=== PATIENT | female | born 1940 ===

== ENCOUNTER 2018-05-06 02:28 | Emergency (ER) | payer MEDICARE ==
[2018-05-06] MEDS ORDERED: Nitroglycerin TAB 0.4 MG* 0.4 MG TAB SL PRN (02:32)
[2018-05-06] MEDS ORDERED: Morphine VIAL* 4 MG/ML VIAL (1 ml vial) IV ONE (02:33)
[2018-05-06] MEDS ORDERED: Metoprolol Tartrate TAB* 25 MG PO ONE (02:36)
--- NOTE | 2018-05-06 02:45 | ED ---
HPI Chest Pain - HPI Summary HPI Summary: The patient is a 77 y/o F presenting to [facility] brought in by ambulance with a chief complaint of sharp CP in the anterior chest with associated tingling with a sudden onset around 0145. She woke up from a sleep when the pain started. In the ambulance, she was given 4 baby aspirin and 1 dose of NTG, which relieved her pain, although she is still having some discomfort now rated 5/10 in severity. She denies nausea. She has had previous angina, but this pain is different. During that time, she had a stress test. Hypercholesterolemia, no HTN. Former smoker. - History of Current Complaint Hx Obtained From: Patient Onset/Duration: Started Minutes Ago, Still Present Time of Onset: 01:45 Timing: Lasting Minutes Initial Severity: Severe Current Severity: Mild Pain Intensity: 5 Pain Scale Used: 0-10 Numeric Chest Pain Location: Left Anterior, Right Anterior Chest Pain Radiates: No Character: Sharp/Stabbing Aggravating Factor(s): Nothing Alleviating Factor(s): NTG 123 - one, Other: - 4 baby aspirin Associated Signs and Symptoms: Positive: Tingling - in chest. Negative: Nausea - Allergy/Home Medications Allergies/Adverse Reactions: Allergies Allergy/AdvReac Type Severity Reaction Status Date / Time Iodinated Contrast- Oral and Allergy Shakes Verified 05/06/18 02:32 IV Dye Home Medications: Home Medications Aspirin 81 mg PO DAILY 05/06/18 [History Confirmed 05/06/18] Metoprolol Succinate XL TAB* 25 mg PO DAILY 05/06/18 [History Confirmed 05/06/18 ] PMH/Surg Hx/FS Hx/Imm Hx Endocrine/Hematology History: Denies: Hx Diabetes Cardiovascular History: Reports: Hx Hypercholesterolemia Denies: Hx Hypertension Opthamlomology History: Denies: Hx Legally Blind EENT History: Denies: Hx Deafness - Surgical History Surgery Procedure, Year, and Place: none Infectious Disease History: No Infectious Disease History: Denies: Traveled Outside the [place] in Last 30 Days - Family History Known Family History: Negative: Diabetes Review of Systems Positive: Chest Pain - sharp pain across anterior chest with tingling Negative: Nausea All Other Systems Reviewed And Are Negative: Yes Physical Exam - Summary Physical Exam Summary: Appearance: Well-appearing, Well-nourished, lying in bed comfortably Skin: Warm, dry, no obvious rash Eyes: sclera anicteric, no conjunctival pallor ENT: mucous membranes moist, pharynx appears normal Neck: Supple, nontender Respiratory: Clear to auscultation, no signs of respiratory distress Cardiovascular: Normal S1, S2. No murmurs. Normal distal pulses in tibial and radial bilaterally. Abdomen: Soft, nontender, normal active bowel sounds present Musculoskeletal: Normal, Strength/ROM Intact Neurological: A&Ox3, awake and alert, mentation is normal, speech is fluent and appropriate Psychiatric: affect is normal, does not appear anxious or depressed Triage Information Reviewed: Yes Vital Signs On Initial Exam: Initial Vitals Temp Pulse Resp BP Pulse Ox 96.3 F 109 18 136/80 94 05/06/18 02:29 05/06/18 02:29 05/06/18 02:29 05/06/18 02:29 05/06/18 02:29 Vital Signs Reviewed: Yes Diagnostics - Vital Signs Vital Signs Temp Pulse Resp BP Pulse Ox 05/06/18 02:29 96.3 F 109 18 136/80 94 - Laboratory Result Diagrams: 05/06/18 02:43 05/06/18 02:43 Lab Statement: Any lab studies that have been ordered have been reviewed, and results considered in the medical decision making process. - Radiology CXR Radiology Interpretation Completed By: Radiologist Summary of Radiographic Findings: No acute disease. ED physician has reviewed this report. - EKG 02:31 Cardiac Rate: Tachycardia EKG Rhythm: Sinus Tachycardia Summary of EKG Findings: Sinus tachycardia at 110BPM, P waves, QRS complex, and T waves are within normal limits, T waves and intervals are normal, no ischemic changes. Re-Evaluation - Re-Evaluation First Eval Re-Evaluation Time: 06:30 Change: Improved Comment: She states she has no more pain. She will be discharged home. Chest Pain Course/Dx - Course Course Of Treatment: The patient is a 77 y/o F brought in by ambulance with a chief complaint of sharp CP in the anterior chest with associated tingling with a sudden onset around 0145 that caused her to wake up from a deep sleep. In the ambulance, she was given 4 baby aspirin and 1 dose of NTG, which relieved her pain, although she is still having some discomfort now. She has had previous angina, but this pain is different. During that time, she had a stress test. Hypercholesterolemia. Former smoker. Physical exam is normal. In the ED course, the patient was given Ns, Lopressor, NTG, and Morphine. EKG reveals tachycardia. CXR is negative. She is diagnosed with chest pain. On reevaluation , the patient states she has no more pain. She looks generally well and her vital signs of been stable. She has had no arrhythmias on the monitor. Her troponin assays are negative 2. At this point I believe she is stable for discharge and does not require hospitalization. I went over with her that follow-up is important with her primary care doctor is they will probably when he get a stress test of some type. In the meantime she was cautioned to return if she has recurrent chest pain or other worrisome symptoms. - Diagnoses Provider Diagnoses: Chest pain Discharge - Sign-Out/Discharge Documenting (check all that apply): Patient Departure - Patient will be discharged home. - Discharge Plan Condition: Good Disposition: HOME Patient Education Materials: Chest Pain (ED) Referrals: Bandar France MD [Primary Care Provider] - 2 Days Additional Instructions: Although we did not find any evidence of an acute heart problem tonight, you should followup with your own doctor as you may need to have a stress test done. - Billing Disposition and Condition Condition: GOOD Disposition: Home - Attestation Statements Document Initiated by Uma: Yes Documenting Scribe: Mariama Villar Provider For Whom Uma is Documenting (Include Credential): Dr. Azeem Epperson MD Scribe Attestation: Mariama James scribed for Dr. Azeem Epperson MD on 05/06/18 at 0659. Scribe Documentation Reviewed: Yes Provider Attestation: The documentation as recorded by the Mariama garcia accurately reflects the service I personally performed and the decisions made by me, Dr. Azeem Epperson MD Status of Scribwendi Document: Viewed
[2018-05-06 02:51] LABS: ABS Basophils 0.1 10^3/ul (0-0.2); ABS Eosinophils 0.2 10^3/ul (0-0.6); ABS Lymphocytes 1.8 10^3/ul (1.0-4.8); ABS Monocytes 0.6 10^3/ul (0-0.8); ABS Neutrophils 4.8 10^3/ul (1.5-7.7); ABS Nucleated RBC 0 10^3/ul; Eosinophil % 2.6 %; Hematocrit 38 % (35-47); Hemoglobin 13.1 g/dl (12.0-16.0); Mean Corpuscular HGB Conc 34 g/dl (31-36); Mean Corpuscular Hemoglobin 31 pg (27-31); Mean Corpuscular Volume 90 fL (80-97); Mean Platelet Volume 7.2 fL (7.4-10.4); Nucleated Red Blood Cells % 0.1; Platelet Count 287 10^3/ul (150-450); Red Blood Count 4.24 10^6/ul (4.00-5.40); Red Cell Distribution Width 13 % (10.5-15); White Blood Count 7.6 10^3/ul (3.5-10.8)
[2018-05-06] MEDS ORDERED: NS 0.9% 1000 ML* 1,000 ML IV ONE (03:01)
[2018-05-06 03:09] LABS: EGFR Non-African American 71.6 (>60)
[2018-05-06 07:01] VITALS: BP 107/57
== END 2018-05-06 06:59 | disposition home or self-care (01) ==
LOC: ED 02:28
DX: R07.89 Other chest pain (principal); R00.0 Tachycardia, unspecified; Z79.82 Long term (current) use of aspirin; Z91.041 Radiographic dye allergy status
CPT/HCPCS: 36415; 71045; 80053; 84484; 85025; 85379; 93005; 96374; 99284; A9270-GY; J2270

== ENCOUNTER 2019-05-09 16:25 | Inpatient (IN) | payer MEDICARE, MEDICAID ==
--- OUTSIDE RECORDS SUMMARY | 2019-05-09 16:52 | XMS REPORT | Summary of Care ---
:1940 Author Organization [facility] Address [address] [address] Care Team Providers Name Role Phone Mickey Manzano Primary Care Provider Mario Hernandez MD Unavailable Unavailable Shanika Pineda Enterprise Software Developer Unavailable Reason for Visit Reason Comments New Patient Right shoulder pain x 2 months with no known injury. Refer to Department Only (Routine) Status Reason Specialty Diagnoses / Referred By Contact Referred To Contact Procedures Closed Orthopedics Diagnoses Pain in joint of right shoulder Pain of left hip joint Polly Talavera MD [address] [place] [address] Encounter Details Date Type Department Care Team Description 05/06/2019 Office Visit [facility] Peri Morgan, Primary osteoarthritis of right shoulder (Primary Dx); - [place] [facility] Pain in joint of right shoulder; [address] [facility] Pain of left hip [place] [address] [address] [place] [address] [phone] Allergies Active Allergy Reactions Severity Noted Date Comments Ct Dye Dermatologic Reaction 11/16/2009 Penicillins Other 06/09/2010 documented as of this encounter (statuses as of 05/06/2019) Medications Medication Sig Dispensed Refills Start Date End Date Status Multiple Take 1 Tab by 0 Active Vitamins-Minerals (ONE mouth DAILY. DAILY WOMENS 50+) Oral Tab Zgmwdoz-Feucwjemd-Wxnl Take 1 Tab by 60 Tab 0 02/10/2015 Active min D (CALCIUM 500) mouth TWICE DAILY. 500-250-200 MG-MG-UNIT Oral Tab Naproxen Take by mouth 0 Active Sod-Diphenhydramine NEEDED. (ALEVE PM PO) Nystatin 130962 0.0001 g by Apply 60 g 4 05/09/2018 Active UNIT/GM Apply externally route externally Powder TWICE DAILY. diclofenac (VOLTAREN) 2 g by Topical 100 g 4 06/28/2018 Active 1 % Transdermal Gel route THREE TIMES DAILY NEEDED (thumb pain). metoprolol succinate Take 1 Tab by 90 Tab 3 09/24/2018 Active (TOPROL XL) 25 MG Oral mouth DAILY. TABLET SR 24 HRIndications: Essential hypertension triamcinolone Apply to scalp 80 g 5 11/30/2018 Active (KENALOG) 0.1 % Apply twice daily externally Ointment escitalopram (LEXAPRO) Take 1 Tab by 30 Tab 5 01/09/2019 Active 10 MG Oral Tab mouth DAILY. ropinirole (REQUIP) 2 Take 1 Tab by 30 Tab 1 04/24/2019 Active MG Oral Tab mouth EVERY BEDTIME. Hospital, Clinic, or Other Ordered Dose Route Frequency Start Date End Date Status Facility Administered Medication methylPREDNISolone acetate 80 mg IM NOW 05/06/2019 05/06/2019 Ended (DEPO-MEDROL) injection 80 MG/MLIndications: Primary osteoarthritis of right shoulder documented as of this encounter (statuses as of 05/06/2019) Active Problems Problem Noted Date Restless leg syndrome 06/28/2018 Hearing loss of right ear 02/10/2015 Chronic insomnia 02/10/2015 Osteoporosis 11/02/2012 Overview: FRAX 4.9/17% based on DEXA 07/02 H/O: hysterectomy 07/09/2010 Overview: Age 21 Essential hypertension SVT (supraventricular tachycardia) Overview: briefly on metoprol by prior provider for "angina" symptoms Mixed hyperlipidemia Overview: LDL 161, HDL 88 documented as of this encounter (statuses as of 05/06/2019) Resolved Problems Problem Noted Date Resolved Date Shoulder pain, right 04/02/2014 02/10/2015 Anxiety 02/10/2015 documented as of this encounter (statuses as of 05/06/2019) Immunizations Name Administration Dates Next Due Influenza (IM) Preservative Free 03/14/2013, 03/21/2012, 02/02/2011, 02/12/2010 Influenza Vaccine 65 Yrs + 03/12/2019 Influenza Vaccine High Dose 03/19/2018, 03/17/2017, 03/16/2016, 02/10/2015, 03/27/2014 PNEUMOCOCCAL POLYSACCHARIDE VACCINE 02/19/2010 Pneumococcal Conjugate(13 Valent) 03/16/2016 TDAP Vaccine 11/24/2010 ZOSTER (ZOSTAVAX) VACCINE 02/10/2015 documented as of this encounter Social History Tobacco Use Types Packs/Day Years Used Date Former Smoker Cigarettes 0.25 30 Quit: 05/22/1996 Smokeless Tobacco: Never Used Alcohol Use Drinks/Week oz/Week Comments Yes 3-4 Cans of beer 3.0 - 4.0 0 Standard drinks or equivalent Sex Assigned at Date Recorded Not on file Job Start Date Occupation Industry Not on file Not on file Not on file Travel History Travel Start Travel End No recent travel history available. documented as of this encounter Last Filed Vital Signs Vital Sign Reading Time Taken Comments Blood Pressure 129/68 05/06/2019 11:14 AM EST Pulse 84 05/06/2019 11:14 AM EST Temperature - - Respiratory Rate - - Oxygen Saturation - - Inhaled Oxygen Concentration - - Weight 70.8 kg (156 lb) 05/06/2019 11:14 AM EST Height - - Body Mass Index 28.08 04/24/2019 4:26 PM EST documented in this encounter Progress Notes Peri Morgan, BILLIE-C - 05/06/2019 11:15 AM EST PATIENT: Estelle Wolff : 1940 DATE OF SERVICE: 05/06/2019 REFERRING PRACTITIONER: Polly Talavera PRIMARY CARE PROVIDER: Mickey Manzano CHIEF COMPLAINT: Chief Complaint Patient presents with New Patient Right shoulder pain x 2 months with no known injury. HISTORY OF PRESENT ILLNESS: Estelle Wolff is a 78-y.o. female who presents for a new visit. The patient presents with right shoulder pain. Onset of the symptoms was several months ago. Current symptoms include: pain: intensity 8/10. Inciting event: no known event. Associated symptoms: pain radiating to arm/hand. Aggravating symptoms: lifting heavy objects, range of motion and sleeping. . Patient's symptoms are: gradually worsening. Patient has had prior upper extremity problems. Had an injection over 1 year ago she believes. Previous visits for this problem: yes, last seen by the patient's primary care provider. Evaluation to date: plain x-rays : abnormal Treatment to date: rest, ice: ineffective, mjam-mdo-hultprj analgesics: ineffective. Past Medical History: Diagnosis Date Advanced directives, counseling/discussion requests DNR/DNI Anxiety Arthritis Bladder polyp Dr. Fuentes Dyslipidemia LDL 161, HDL 88; started simva Hearing problem HTN (hypertension) normotensive without medications Osteoporosis FRAX 4.9/17% based on DEXA 07/02 Otitis media SVT (supraventricular tachycardia) (HCC) previously on metoprol by prior provider for "angina" symptoms, off metoprolol 2010-03 due to borderline hypotension, restarted November 2010 Past Surgical History: Procedure Laterality Date APPENDECTOMY CHOLECYSTECTOMY HYSTERECTOMY, ABDOMINAL tumurs GA REMOVE TONSILS/ADENOIDS,12+ Y/O GA TYMPANOPLASTY TONSILLECTOMY Family History Problem Relation Age of Onset Alcohol/Drug Father ETOH Breast Cancer Sister Cancer Sister brain tumor Stroke Sister Cancer Brother stomach ca No Known Problems Brother Alcohol/Drug Sister drug OD No Known Problems Sister Current Outpatient Medications Medication Sig Cndqbrp-Dvwjuibcw-Emvvbzp D (CALCIUM 500) 500-250-200 MG-MG-UNIT Oral Tab Take 1 Tab by mouthTWICE DAILY. diclofenac (VOLTAREN) 1 % Transdermal Gel 2 g by Topical route THREE TIMES DAILY NEEDED (thumb pain). escitalopram (LEXAPRO) 10 MG Oral Tab Take 1 Tab by mouth DAILY. metoprolol succinate (TOPROL XL) 25 MG Oral TABLET SR 24 HR Take 1 Tab by mouth DAILY. Multiple Vitamins-Minerals (ONE DAILY WOMENS 50+) Oral Tab Take 1 Tab by mouth DAILY. Naproxen Sod-Diphenhydramine (ALEVE PM PO) Take by mouth NEEDED. Nystatin 278696 UNIT/GM Apply externally Powder 0.0001 g by Apply externally route TWICE DAILY. ropinirole (REQUIP) 2 MG Oral Tab Take 1 Tab by mouth EVERY BEDTIME. triamcinolone (KENALOG) 0.1 % Apply externally Ointment Apply to scalp twice daily No current facility-administered medications for this visit. Allergies Allergen Reactions Iv Contrast [Ct Dye] Dermatologic Reaction Penicillins Other Social History Socioeconomic History Marital status: Spouse name: Not on file Number of children: Not on file Years of education: Not on file Highest education level: Not on file Occupational History Not on file Social Needs Financial resource strain: Not on file Food insecurity Worry: Not on file Inability: Not on file Transportation needs Medical: Not on file Non-medical: Not on file Tobacco Use Smoking status: Former Smoker Packs/day: 0.25 Years: 30.00 Pack years: 7.50 Types: Cigarettes Last attempt to quit: 05/22/1996 Years since quittin.9 Smokeless tobacco: Never Used Substance and Sexual Activity Alcohol use: Yes Alcohol/week: 3.0 - 4.0 standard drinks Types: 3 - 4 Cans of beer per week Drug use: No Sexual activity: Not Currently Lifestyle Physical activity Days per week: Not on file Minutes per session: Not on file Stress: Not on file Relationships Social connections Talks on phone: Not on file Gets together: Not on file Attends zoroastrian service: Not on file Active member of club or organization: Not on file Attends meetings of clubs or organizations: Not on file Relationship status: Not on file Intimate partner violence Fear of current or ex partner: Not on file Emotionally abused: Not on file Physically abused: Not on file Forced sexual activity: Not on file Other Topics Concern Back Care Not Asked Bike Helmet Not Asked Blood Transfusions Not Asked Caffeine Concern Not Asked Exercise Yes Comment: 30 mins daily walking Hobby Hazards Not Asked International Travel Not Asked Service Not Asked Occupational Exposure Not Asked Seat Belt Not Asked Self-Exams Not Asked Sleep Concern No Special Diet No Stress Concern No Weight Concern Yes Comment: mild unintentional weight loss in 2010 Social History Narrative Lives alone in a house in [place], [place] since 2010 Has dog and cataract at home 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 Nephew next door. REVIEW OF SYSTEMS: Review of systems intake completed by clinical staff. I have reviewed and agree with their documentation. PHYSICAL EXAMINATION: VITALS: BP 129/68 | Pulse 84 | Wt 156 lb (70.8 kg) | BMI 28.08 kg/m Body mass index is 28.08 kg/m.. Handed: right General: pleasant, alert and oriented x 3, no apparent distress Patient was examined with the shoulder exposed. There is no asymmetry noted between between right and left shoulders. There is no evidence of skin blebs, discoloration, abrasions, or scars. No evidenceof anterior, posterior or lateral deltoid atrophy bilaterally. There is evidence of tenderness on palpation of the anterior inferior, or anterior lateral acromion. C-spine exam: The patient has full range of motion of the cervical spine. The patient has a Negative Spurlings sign.(neck extension and lateral rotation to symptomatic side accompanied by pain on axial loading of the c-spine) Range of motion: Right upper extremity forward elevation 140 Left upper extremity forward elevation 180 Right upper extremity abduction 140 Left upper extremity - abduction 180 Specific Tests: Right upper extremity Positive modified Jobes test (Shoulder abduction to 90 degrees, 30 degrees forward flexion with right thumb down compared to left upper extremity, to evaluate supraspinatus) with pain no significant weakness Left upper extremity Negative modified Jobes test ( Shoulder abduction to 90 degrees, 30 degrees forward flexion with left thumb down compared to right upper extremity, to evaluate supraspinatus) Negative weakness in external rotation against resistance, testing the infraspinatus and teres minor. bilaterally. Negative weakness in internal rotation against resistance , testing the subscapularis with respect to the bilaterally upper extremity. Negative lift off test, evaluating the lower portion of the subscapularis with respect to the bilaterally upper extremity. negative belly press Bilateral Nv intact to the rightRight upper extremity. Elbow and wrist motion are full and pain free of the Right upper extremity. Left shoulder exam is normal. Xray's reviewed show : IMPRESSION: ICD-9-CM ICD-10-CM 1. Pain in joint of right shoulder 719.41 M25.511 REFER TO ORTHOPEDICS 2. Pain of left hip joint 719.45 M25.552 REFER TO ORTHOPEDICS PLAN:The risks and benefits of my recommendations, as well as other treatment options along with their benefits, risks, and failure rates were discussed with the patient and son today. The patient wasadvised of the material risks and benefits of a intraarticular depomedrol injection and verbal informed consent was obtained. The skin was prepped with an betadine sponge and the right Shoulder posterior approach was injected with 80 mg of Depo-medrol in 2cc of 1 % plain lidocaine and 1cc of 0.5% marcaine. She tolerated the injection well with no associated complications. A band aid was applied to the injection site. Possible side effects were discussed as was the use of ice and over the counter Tylenol or ibuprofen for post injection discomfort. she was given the post injection sheet. All questions were answered. Follow up: Schedule follow-up here in 3 week(s) for the shoulder and a nc left hip. Has xray's in chart. Author: MADELEINE Hernandez 05/06/2019 11:18 documented in this encounter Plan of Treatment Date Type Specialty Care Team Description 05/27/2019 Office Visit Orthopedics Reinier Jarrell MD [address] [place] [address] [phone] Name Type Priority Associated Diagnoses Order Schedule INJECTION, JOINT Procedures Routine Primary osteoarthritis of Ordered: SHOUDLER HIP KNEE OR right shoulder BURSA Health Maintenance Due Date Last Done Comments MEDICARE ANNUAL WELLNESS 03/17/2018 03/17/2017, 03/16/2016, VISIT 03/16/2016, Additional history exists OSTEOPOROSIS SCREENING 01/20/2019 01/20/2009 FALL RISK ASSESSMENT 06/28/2019 06/28/2018, 06/28/2018 DEPRESSION SCREENING 02/07/2020 02/06/2019, 02/06/2019 ZOSTER IMMUNIZATION SERIES 04/24/2020 02/10/2015 Postponed from (2 of 3) 04/07/2015 (Vaccine not available) DTaP/Tdap/Td Vaccines (2 - 11/24/2020 11/24/2010 Tdap) PNEUMOCOCCAL 65+YRS Completed 03/16/2016, 02/19/2010 INFLUENZA VACCINE Completed 03/12/2019, 03/19/2018, 03/17/2017, Additional history exists HEPATITIS A IMMUNIZATION Aged Out No longer eligible SERIES based on patient's age to complete this topic HPV IMMUNIZATION SERIES Aged Out No longer eligible based on patient's age to complete this topic MENINGOCOCCAL VACCINE IMM Aged Out No longer eligible based on patient's age to complete this topic documented as of this encounter Goals Goal Patient Goal Associated Recent Patient-Stated? Author Type Problems Progress Blood Pressure Blood Essential 129/68 No [place], < 140/90 Pressure hypertension (05/06/2019 Mickey Monroe, 11:14 AM EST) Note: Hypertension Care Plan Based on the patient's clinical history and according to JNC 8 guidelines target blood pressure goal is less than 140/90. Based on the patient's last blood pressure of BP: 128/60 mmHg the patient is at at goal. As your provider, it is important that I advise you regarding: your current medications and help you with any challenges you may face taking your medications as directed (ex. instructions, cost, side effects, and interactions). Important lifestyle changes: exercise, weight reduction and dietary sodium reduction your clinical goals and how you can achieve success: weight reduction and exercise plan medication management: N/A diet only patient education/self-management tools provided: Current self-management tools adequate To successfully manage my Hypertension I will: monitor my blood pressure daily, understanding that my goal is less than 140/ 90 per my healthcare provider's recommendation. I will schedule an appointment with my provider if consistent abnormal readings greater than 160/100. take medications every day as prescribed by my healthcare provider and if unable to take them I will discuss with my provider. monitor for symptoms of chest pain, chest tightness/pressure, irregular heartbeat, persistent dizziness, radiating arm pain, and neck or jaw pain. If any of these symptoms are noticed I will seek medical attention immediately by calling 911 exercise/walk 30 minutes 6 day(s) per week. If I experience chest pain, chest tightness, or shortness of breath, I will seek medical attention immediately. follow a diet rich in fruits, vegetables, and low-fat dairy products with reduced content of saturated & total fat. I will reduce my sodium intake daily. An example is the DASH diet. To obtain more information please refer to the DASH Eating Plan listed in Educational Resources. record my blood pressure results. Doug is safe and secure way for you to do this in your medical record online. try to obtain an ideal body weight. My recent weight was Weight: 157 lb ( 71.215 kg). My weight loss goal for my next office visit is 155. limit alcohol consumption. For men two drinks per day and women one drink per day. if currently smoking, will discuss how to quit smoking with my healthcare provider and work towards quitting. Educational Resources: National Heart, Lung, & Blood Dewitt http://nhlbi.nih.gov/hbp/index.html The DASH Diet Eating Plan http://www.nhlbi.nih.gov/health/health-topics/ topics/dash/ Academy of Nutrition & DIetetics http://eatright.org National Smoking Cessation Site http://smokefree.gov Blood Pressure < 150/90 Blood Pressure 129/68 (05/06/2019 11:14 No Reinier Cárdenas MD AM EST) Note: This is an individualized treatment (blood pressure) goal for Estelle Wolff : Displayed above (on the left) is your goal for blood pressure control. Your most recent blood pressure is also shown above, on the right. You should try to achieve blood pressures that are lower than your goal listed above (on the left). Depression screen Depression 0 (02/06/2019 12:43 PM Mickey Benavides, (PHQ-9) total score < 5 EDT) Note: This is an individualized treatment (depression) goal for Estelle Wolff: Displayed above is your goal for a depression screening (PHQ-9) score that would indicate good control of your depression. Keep a regular sleep schedule Lifestyle Mickey Benavides MD Note: This is an individualized lifestyle goal for Estelle Wolff: Please maintain a regular sleep schedule. This may help with some symptoms of depression. Take all prescribed medications as directed Self-management Reinier Urbano MD Note: This is an individualized self-management goal for Estelle Wolff: Please take all prescribed medications as directed. 1. Do not skip doses. If you cannot afford your medications, talk with your doctor. 2. Use a pill reminder system such as a pill box if needed. Your pharmacist can help you with this. 3. Contact your Pharmacy 5 days before your medication runs out. If you cannot take your medications for any reasons, talk with your doctor. 4. Please bring all of your medication bottles and inhalers (or a list of all your medications/inhalers) with you to every visit. Potential barriers to meeting all of your care plan goals will continue to be addressed on an ongoing basis. documented as of this encounter Results Not on filedocumented in this encounter Visit Diagnoses Diagnosis Pain in joint of right shoulder Pain in joint, shoulder region Pain of left hip joint Primary osteoarthritis of right shoulder Primary localized osteoarthrosis, shoulder region documented in this encounter Administered Medications Medication Order MAR Action Action Date Dose Rate Site methylPREDNISolone acetate Given 05/06/2019 11:27 80 mg Shoulder - Right (DEPO-MEDROL) injection 80 AM EST MG/ML 80 mg, Intramuscular, NOW, 1 dose, 05/06/19 at 1130 documented in this encounter Insurance Payer Benefit Plan / Subscriber ID Effective Dates Phone Address Type Group [facility] MEDICARE EX[employer]LL[employer] xxxxxxxxxxxx Effective for [employer] ADVANTAGE MEDICARE BLUE all dates PPO ([id number]) Guarantor Name Account Type Relation to Date of Phone Billing Patient Address Estelle Wolff Personal/Family 1940 [phone] ([address]) [address] [phone] [place], [place] (Work) [id number] documented as of this encounter
--- OUTSIDE RECORDS SUMMARY | 2019-05-09 16:52 | XMS REPORT | Summary of Care ---
:1940 Author Organization [facility] Address [address] [address] Care Team Providers Name Role Phone Mickey Manzano Primary Care Provider Mario Hernandez MD Unavailable Unavailable Shanika Pineda Psychiatric Nurse Practitioner Unavailable Reason for Referral Refer to Department Only (Routine) Status Reason Specialty Diagnoses / Referred By Referred To Procedures Contact Contact Authorized Orthopedics Diagnoses Pain in joint of right shoulder Pain of left hip joint Polly Talavera MD [address] [place] [address] Refer to Department Only (Routine) Status Reason Specialty Diagnoses / Referred By Referred To Procedures Contact Contact Pending Review DERMATOLOGY Diagnoses Lesion of skin of scalp Polly Talavera MD [address] [place] [address] Reason for Visit Reason Comments Shoulder Pain right shoulder had cortosone shot in arm 1 year ago pain is coming back X1.5 months worse in the last 3 days pain scale of 10 Rash on the top of the head, painful to the touch -6months ago Leg Pain bilateral leg pain when resting X1 year geting worse has to triple flexeril Hip Pain left hip pain X1.5 weeks Encounter Details Date Type Department Care Team Description 04/24/2019 Office Visit Zuleyma Olsen Ilan, Pain in joint of right shoulder (Primary Dx); Traci Matias MD Pain of left hip joint; [address] Lesion of skin of scalp; [place] [address] [place] [address] RLS (restless legs syndrome) [phone] Allergies Active Allergy Reactions Severity Noted Date Comments Ct Dye Dermatologic Reaction 11/16/2009 Penicillins Other 06/09/2010 documented as of this encounter (statuses as of 04/24/2019) Medications Medication Sig Dispensed Refills Start Date End Date Status Multiple Take 1 Tab by 0 Active Vitamins-Minerals mouth DAILY. (ONE DAILY WOMENS 50+) Oral Tab Qwsukmr-Ckhmxvnzz-Fe Take 1 Tab by 60 Tab 0 02/10/2015 Active tamin D (CALCIUM mouth TWICE 500) 500-250-200 DAILY. MG-MG-UNIT Oral Tab Naproxen Take by mouth 0 Active Sod-Diphenhydramine NEEDED. (ALEVE PM PO) Nystatin 405863 0.0001 g by 60 g 4 05/09/2018 Active UNIT/GM Apply Apply externally Powder externally route TWICE DAILY. diclofenac 2 g by Topical 100 g 4 06/28/2018 Active (VOLTAREN) 1 % route THREE Transdermal Gel TIMES DAILY NEEDED (thumb pain). metoprolol succinate Take 1 Tab by 90 Tab 3 09/24/2018 Active (TOPROL XL) 25 MG mouth DAILY. Oral TABLET SR 24 HRIndications: Essential hypertension triamcinolone Apply to scalp 80 g 5 11/30/2018 Active (KENALOG) 0.1 % twice daily Apply externally Ointment escitalopram Take 1 Tab by 30 Tab 5 01/09/2019 Active (LEXAPRO) 10 MG Oral mouth DAILY. Tab ropinirole (REQUIP) Take 1 Tab by 30 Tab 1 04/24/2019 Active 2 MG Oral Tab mouth EVERY BEDTIME. cyclobenzaprine Take 1 Tab by 30 Tab 5 11/30/2018 Discontinued (FLEXERIL) 10 MG mouth EVERY 9 Oral Tab BEDTIME. ropinirole (REQUIP) Take 1.5 mg by 0 Discontinued 0.5 MG Oral Tab mouth EVERY 9 BEDTIME. documented as of this encounter (statuses as of 04/24/2019) Active Problems Problem Noted Date Restless leg syndrome 06/28/2018 Hearing loss of right ear 02/10/2015 Chronic insomnia 02/10/2015 Osteoporosis 11/02/2012 Overview: FRAX 4.9/17% based on DEXA 07/02 H/O: hysterectomy 07/09/2010 Overview: Age 21 Essential hypertension SVT (supraventricular tachycardia) Overview: briefly on metoprol by prior provider for "angina" symptoms Mixed hyperlipidemia Overview: LDL 161, HDL 88 documented as of this encounter (statuses as of 04/24/2019) Resolved Problems Problem Noted Date Resolved Date Shoulder pain, right 04/02/2014 02/10/2015 Anxiety 02/10/2015 documented as of this encounter (statuses as of 04/24/2019) Immunizations Name Administration Dates Next Due Influenza (IM) Preservative Free 03/14/2013, 03/21/2012, 02/02/2011, 02/12/2010 Influenza Vaccine 65 Yrs + 03/12/2019 Influenza Vaccine High Dose 03/19/2018, 03/17/2017, 03/16/2016, 02/10/2015, 03/27/2014 Kenalog (40 mg) 04/02/2014 PNEUMOCOCCAL POLYSACCHARIDE VACCINE 02/19/2010 Pneumococcal Conjugate(13 Valent) [...] Sign Reading Time Taken Comments Blood Pressure 140/90 04/24/2019 4:26 PM EST Pulse 73 04/24/2019 4:26 PM EST Temperature 37.4 04/24/2019 4:26 PM EST C (99.4 F) Respiratory Rate - - Oxygen Saturation 96% 04/24/2019 4:26 PM EST Inhaled Oxygen Concentration - - Weight 70.9 kg (156 lb 6.4 oz) 04/24/2019 4:26 PM EST Height 158.8 cm (5' 2.5") 04/24/2019 4:26 PM EST Body Mass Index 28.15 04/24/2019 4:26 PM EST documented in this encounter Patient Instructions Patient InstructionsPolly Talavera MD - 04/24/2019 4:20 PM EST1. Schedule appointment with dermatology and orthopedics 2. Schedule appointment for R shoulder and L hip X-ray 3. Increase Requip to 2 mg at the bed time ( 4 tablets of 0.5 mg or 1 tablet of 2 mg) documented in this encounter Progress Notes Polly Talavera MD - 04/24/2019 4:20 PM EST Patient: Estelle Wolff Date of Service: 04/24/2019 Subjective: Estelle Wolff is a 78-y.o. female who presents for Chief Complaint Patient presents with Shoulder Pain right shoulder had cortosone shot in arm 1 year ago pain is coming back X1.5 months worse in the last 3 days pain scale of 10 Rash on the top of the head, painful to the touch -6months ago Leg Pain bilateral leg pain when resting X1 year geting worse has to triple flexeril Hip Pain left hip pain X1.5 weeks Patient comes with complains of tender non healing lesion on the scalp. Treated with topical steroids without improvement. The patient complains of right shoulder pain for several years. Patient reports: History of injury: no Pain: Location: AC joint and anterior Radiates to: arm Exacerbating factors: elevation, lifting and repetitive activity Neurological complaints: numbness in the arm Vascular complaints: none R shoulder X-ray done 2013: Degenerative changes to the right acromial clavicular joint. Narrowing of the acromiohumeral distance suggests chronic rotator cuff injury. Pain improved in the past with steroid injection Also has history of DDD in the cervical spine with spinal stenosis The patient complains of left hip pain for several months. Patient reports: History of injury: none Pain: Location: lateral Radiates to: leg Exacerbating factors: activity Neurological complaints: none Vascular complaints: none Ambulation: mild difficulty Back pain: yes, intermittent Also has history of RLS. Continues to have intermittent night leg cramps on current dose of Requip Past Medical History: Diagnosis Date Advanced directives, counseling/discussion requests DNR/DNI Anxiety Arthritis Bladder polyp Dr. Fuentes Dyslipidemia LDL 161, HDL 88; started simva Hearing problem HTN (hypertension) normotensive without medications Osteoporosis FRAX 4.9/17% based on DEXA 07/02 Otitis media SVT (supraventricular tachycardia) (HCC) previously on metoprol by prior provider for "angina" symptoms, off metoprolol 2010-03 due to borderline hypotension, restarted November 2010 Outpatient Medications as of 04/24/2019 Medication Sig Dispense Refill Onxehoz-Jhxdtymaa-Zhpmisc D (CALCIUM 500) 500-250-200 MG-MG-UNIT Oral Tab Take 1 Tab by mouthTWICE DAILY. 60 Tab 0 diclofenac (VOLTAREN) 1 % Transdermal Gel 2 g by Topical route THREE TIMES DAILY NEEDED (thumb pain). 100 g 4 escitalopram (LEXAPRO) 10 MG Oral Tab Take 1 Tab by mouth DAILY. 30 Tab 5 metoprolol succinate (TOPROL XL) 25 MG Oral TABLET SR 24 HR Take 1 Tab by mouth DAILY. 90 Tab3 Multiple Vitamins-Minerals (ONE DAILY WOMENS 50+) Oral Tab Take 1 Tab by mouth DAILY. Naproxen Sod-Diphenhydramine (ALEVE PM PO) Take by mouth NEEDED. Nystatin 895424 UNIT/GM Apply externally Powder 0.0001 g by Apply externally route TWICE DAILY. 60 g 4 triamcinolone (KENALOG) 0.1 % Apply externally Ointment Apply to scalp twice daily 80 g 5 No current facility-administered medications on file as of 04/24/2019. Allergies Allergen Reactions Iv Contrast [Ct Dye] Dermatologic Reaction Penicillins Other Review of Systems: All remaining review of systems was negative. Objective: BP 140/90 (BP Location: Left arm, Patient Position: Sitting) Pulse 73 Temp 99.4 F (37.4 C)(Tympanic) Ht 5' 2.5" (1.588 m) Wt 156 lb 6.4 oz (70.9 kg) SpO2 96% BMI 28.15 kg/m2 General appearance: alert, and in no distress. Hair and scalp exam shows L parietal area irregular pigmented lesion, several excoriations. Neck exam - supple, no significant adenopathy. Tenderness on palpation on central and R posterior neck.Pain increases on ROM. No motor, sensory deficit in the arms A right shoulder exam was performed. DEFORMITY: none TENDERNESS: moderate, maximal at AC joint, anterior ROM: limited by pain with active elevation at 90 degrees, active internal rotation and abduction at90 degrees VASCULAR EXAM: normal A left hip exam was performed. TENDERNESS: mild and maximal at greater trochanter ROM: normal NEUROLOGICAL EXAM: normal VASCULAR EXAM: normal ICD-9-CM ICD-10-CM 1. Pain in joint of right shoulder 719.41 M25.511 XR SHOULDER MIN 2 VIEWS RIGHT (STANDARD) REFER TO ORTHOPEDICS 2. Pain of left hip joint 719.45 M25.552 XR HIP 2 VIEWS UNILAT W/PELVIS LEFT REFER TO ORTHOPEDICS 3. Lesion of skin of scalp 709.9 L98.9 REFER TO DERMATOLOGY 4. RLS (restless legs syndrome) Will increase dose of Requip 333.94 G25.81 Patient Instructions 1. Schedule appointment with dermatology and orthopedics 2. Schedule appointment for R shoulder and L hip X-ray 3. Increase Requip to 2 mg at the bed time ( 4 tablets of 0.5 mg or 1 tablet of 2 mg) Author: Polly Talavera MD documented in this encounter Plan of Treatment Date Type Specialty Care Team Description 04/26/2019 Ancillary Procedure Radiology 04/26/2019 Ancillary Procedure Radiology Name Type Priority Associated Diagnoses Order Schedule XR SHOULDER MIN 2 Imaging Routine Pain in joint of right Expected: 2018, VIEWS RIGHT (STANDARD) shoulder Expires: 04/23/2020 XR HIP 2 VIEWS UNILAT Imaging Routine Pain of left hip joint Expected: 08/2018, W/PELVIS LEFT Expires: 04/23/2020 Name Type Priority Associated Diagnoses Order Schedule REFER TO DERMATOLOGY Referral Routine Lesion of skin of scalp Expected: 08/2018, Expires: 04/24/2020 REFER TO ORTHOPEDICS Referral Routine Pain in joint of right Expected: 08/2018, shoulder Expires: 04/24/2020 Pain of left hip joint Health Maintenance Due Date Last Done Comments MEDICARE ANNUAL WELLNESS 03/17/2018 03/17/2017, 03/16/2016, VISIT 03/16/2016, Additional history exists OSTEOPOROSIS SCREENING 01/20/2019 01/20/2009 FALL RISK ASSESSMENT 06/28/2019 06/28/2018, 06/28/2018 DEPRESSION SCREENING 02/07/2020 02/06/2019, 02/06/2019 ZOSTER IMMUNIZATION SERIES 04/24/2020 02/10/2015 Postponed from (2 of 3) 04/07/2015 (Vaccine not available) PNEUMOCOCCAL 65+YRS Completed 03/16/2016, 02/19/2010 INFLUENZA VACCINE Completed 03/12/2019, 03/19/2018, 03/17/2017, Additional history exists HPV IMMUNIZATION SERIES Aged Out No longer eligible based on patient's age to complete this topic MENINGOCOCCAL VACCINE IMM Aged Out No longer eligible based on patient's age to complete this topic documented as of this encounter Goals Goal Patient Goal Associated Recent Patient-Stated? Author Type Problems Progress Blood Pressure Blood Essential 140/90 No Carney, < 140/90 Pressure hypertension (04/24/2019 Mickey Mabel, 4:26 PM EST) Note: Hypertension Care Plan Based on [...] Educational Resources: National Heart, Lung, & Blood [place] http://nhlbi.nih.gov/hbp/index.html The DASH Diet Eating Plan http://www.nhlbi.nih.gov/health/health-topics/ topics/dash/ Academy of Nutrition & DIetetics http://eatright.org National Smoking Cessation Site http://smokefree.gov Blood Pressure < 150/90 Blood Pressure 140/90 (04/24/2019 4:26 No Reinier Cárdenas MD PM EST) Note: This is an individualized treatment [...] Diagnosis Pain in joint of right shoulder - Primary Pain in joint, shoulder region Pain of left hip joint Lesion of skin of scalp RLS (restless legs syndrome) Restless legs syndrome (RLS) documented in this encounter Insurance Payer Benefit Plan / Subscriber ID Effective Dates Phone Address Type Group EXCELLUS MEDICARE EXCELLUS xxxxxxxxxxxx Effective for [facility] ADVANTAGE MEDICARE BLUE all dates PPO [phone]) Guarantor Name Account Type Relation to Date of Phone Billing Patient Address Estelle Wolff Personal/Family [address] [facility] [place] (Home) [address] [phone] [place], [place] (Work) [address] documented as of this encounter
--- NOTE | 2019-05-09 17:12 | ED ---
GI/ HPI - HPI Summary HPI Summary: This pt is a 78 y/o female presenting to [facility] c/o rectal bleeding since 2 days ago. Pt reports she has been having bloody stools and describes having frequent episodes of diarrhea every 3 hours. She describes stools as watery black and tarry. Pt notes every time she has a bowel movement she has rectal bleeding. She describes about 1 pint of blood with blood clots. Denies any rectal pain. The last time she had a bowel movement was at 1400 today. Pt reports associated lightheadedness and weakness. Denies vaginal bleeding, dysuria, chest pain, or fever. She has never had blood in her stool in the past. Pt has chronic right shoulder pain. Pt reports feeling SOB and triage reports pt saturating at 84% on room air. Pt does not wear oxygen at home at baseline. Denies taking any anticoagulants. Denies taking aspirin. Patient reports she takes 25 mg of Metoprolol for "irregular heart beat." She states when she was 55 y/o she had "angina attack" and since then she has been taking Metoprolol. Denies any PSHx in heart or lungs. She reports allergies to contrast with reaction of becoming jittery and anxious. - History of Current Complaint Chief Complaint: EDGIBleed Time Seen by Provider: 05/09/19 16:58 Stated Complaint: BLOODY STOOLS PER PT Hx Obtained From: Patient Onset/Duration: Started Days Ago - 2, Still Present Timing: Lasting Days - 2 Severity: Moderate Pain Intensity: 10 Location of Pain: Diffuse Associated Signs and Symptoms: Positive: Black Tarry Stool, Blood w/Stool, Diarrhea. Negative: Rectal Pain, Fever, Dysuria, Chest Pain Additional Signs & Symptoms: Negative: Vaginal Bleeding Aggravating Factor(s): Nothing Alleviating Factor(s): Nothing - Allergy/Home Medications Allergies/Adverse Reactions: Allergies Allergy/AdvReac Type Severity Reaction Status Date / Time Iodinated Contrast Media Allergy Shakes Verified 05/09/19 18:42 [Iodinated Contrast- Oral and IV Dye] Home Medications: Home Medications Metoprolol Succinate XL TAB* [Toprol XL TAB*] 25 mg PO DAILY 05/09/19 [History Confirmed 05/09/19] rOPINIRole TAB* [Requip TAB*] 2 mg PO BEDTIME 05/09/19 [History Confirmed 12/19/ 19] PMH/Surg Hx/FS Hx/Imm Hx Endocrine/Hematology History: Denies: Hx Diabetes Cardiovascular History: Reports: Hx Hypercholesterolemia Denies: Hx Hypertension Sensory History: Denies: Hx Legally Blind, Hx Deafness Opthamlomology History: Denies: Hx Legally Blind - Surgical History Surgery Procedure, Year, and Place: none Infectious Disease History: No Infectious Disease History: Denies: Traveled Outside the [place] in Last 30 Days - Family History Known Family History: Negative: Diabetes Family History: Sister with breast CA. Brother with stomach CA. - Social History Alcohol Use: None Substance Use Type: Reports: None Smoking Status (MU): Never Smoked Tobacco Review of Systems Negative: Fever Negative: Chest Pain Positive: Shortness Of Breath Gastrointestinal: Other - POSITIVE: rectal bleeding Positive: Diarrhea. Negative: Other - NEGATIVE: rectal pain Negative: dysuria, other - NEGATIVE: vaginal bleeding Neurological: Other - POSITIVE: lightheadedness Positive: Weakness All Other Systems Reviewed And Are Negative: Yes Physical Exam - Summary Physical Exam Summary: Constitutional: Well-developed, Well-nourished, Alert. (-) Distressed Skin: Warm, Dry HENT: Normocephalic; Atraumatic Eyes: Conjunctiva normal Neck: Musculoskeletal ROM normal neck. (-) JVD, (-) Stridor, (-) Tracheal deviation Cardio: Rhythm regular, rate normal, Heart sounds normal; Intact distal pulses; The pedal pulses are 2+ and symmetric. Radial pulses are 2+ and symmetric. Pulmonary/Chest wall: Effort normal. (-) Respiratory distress, (-) Wheezes, (-) Rales Abd: Soft, diffusely tenderness minimally, but more right upper, right lower and middle tenderness, (-) Distension, (-) Guarding, (-) Rebound Rectal Exam: Dry blood around the rectal perianal region, soft stool, bright dark red blood on finger. Musculoskeletal: (-) Edema Neuro: Alert, Oriented x3 Psych: Mood and affect Normal Triage Information Reviewed: Yes Vital Signs On Initial Exam: Initial Vitals Temp Pulse Resp BP Pulse Ox 98.0 F 95 19 130/76 84 05/09/19 16:30 05/09/19 16:30 05/09/19 16:30 05/09/19 16:30 05/09/19 16:30 Vital Signs Reviewed: Yes Procedures - Sedation Patient Received Moderate/Deep Sedation with Procedure: No Diagnostics - Vital Signs Vital Signs Temp Pulse Resp BP Pulse Ox 05/09/19 16:30 98.0 F 95 19 130/76 84 - Laboratory Result Diagrams: 05/09/19 17:28 05/09/19 17:28 Lab Statement: Any lab studies that have been ordered have been reviewed, and results considered in the medical decision making process. - Radiology Chest XR Radiology Interpretation Completed By: ED Physician Summary of Radiographic Findings: No consolidation. - EKG 17:31 Cardiac Rate: NL - at 74 bpm EKG Rhythm: Sinus Rhythm Summary of EKG Findings: EKG at 17:31 shows low voltage with minimal motion artifact at baseline, specifically in III and aVF. Otherwise sinus rhythm at a rate of 74 bpm. No STEMI. GIGU Course/Dx - Course Assessment/Plan: Pt is a 78 y/o female presenting to [facility] c/o rectal bleeding since 2 days ago. Pt reports she has been having bloody stools and describes having frequent episodes of diarrhea every 3 hours. She describes stools as watery black and tarry. Pt reports allergies to iodinated contrast with reaction of becoming jittery and anxious. She denies anaphylaxis reaction to contrast. Will give pt 25 mg of Benadryl and [address] Compared to labs on 12/11/18 patients hemoglobin dropped 6 points from 14.6 down to 8.4. Chest XR shows no consolidation. This pt will be signed out to Dr. Gaona pending CT abdomen/pelvis. - Diagnoses Provider Diagnoses: GI bleed Discharge ED - Sign-Out/Discharge Documenting (check all that apply): Sign-Out Patient Signing out patient TO: Ana Cristina Gaona - pending CT A/P - Discharge Plan Condition: Stable Referrals: Mickey Manzano MD [Primary Care Provider] - - Attestation Statements Document Initiated by Scribe: Yes Documenting Scribe: Ludivina Galindo Provider For Whom Scribe is Documenting (Include Credential): Timo Fang MD Scribe Attestation: Ludivina James, scribed for Timo Fang MD on 05/09/19 at 1370. Status of Scribe Document: Ready
[2019-05-09] MEDS ORDERED: Lactated Ringers 1000 ML Bag* 1,000 ML IV ONE (17:17)
[2019-05-09] MEDS ORDERED: diPHENhydraMINE IV* 50 MG/ML 1 ml VIAL (BENADRYL) IV ONE (17:28)
[2019-05-09 17:35] LABS: ABS Lymphocytes 1.5 10^3/ul (1.0-4.8); ABS Monocytes 0.6 10^3/ul (0-0.8); ABS Neutrophils 9.7 10^3/ul (1.5-7.7); Hematocrit 24 % (35-47); Hemoglobin 8.4 g/dL (12.0-16.0); Lymphocyte % 12.8 %; Mean Corpuscular HGB Conc 35 g/dL (31-36); Mean Corpuscular Hemoglobin 32 pg (27-31); Mean Corpuscular Volume 92 fL (80-97); Platelet Count 318 10^3/uL (150-450); Red Blood Count 2.66 10^6 /uL (3.70-4.87); Red Cell Distribution Width 14 % (10-15); White Blood Count 11.9 10^3/uL (3.5-10.8)
[2019-05-09 17:49] LABS: Activated Partial Thrombo Time 22.2 seconds (26.0-38.0); INR 1.04 (0.82-1.09)
[2019-05-09 17:56] LABS: Albumin 3.8 g/dL (3.2-5.2); Albumin/Globulin Ratio 1.5 (1-3); BUN/Creatinine Ratio 29.2 (8-20); EGFR African American 45.1 (>60); EGFR Non-African American 37.3 (>60); Globulin 2.5 g/dL (2-4); Indirect Bilirubin 0.5 mg/dL (0.3-1.0); Potassium 4.2 mmol/L (3.5-5.0); Total Bilirubin 0.6 mg/dL (0.2-1.0); Total Protein 6.3 g/dL (6.4-8.9)
[2019-05-09] MEDS ORDERED: Iodixanol* (CONTRAST) 320 MG/ML 100 ML SDV IV ONE (18:13)
[2019-05-09] MEDS ORDERED: fentaNYL* 50 MCG/ML 2 ML VIAL (100 MCG VIAL) IV SLOW PU ONE (18:47)
--- NOTE | 2019-05-09 19:04 | ED ---
Progress - Progress Note Progress Note: Patient is received as a sign-out from Dr. Fang to Dr. Gaona at [address] ABD/PEL results. CT ABD/PEL IMPRESSION: Fluid filled colon suggestive of diarrheal disease. No wall thickening or diverticulitis. THIS REPORT WAS REVIEWED BY ED PHYSICIAN. 2103 - Patient's case was discussed JUAN Ag. Dr. Hobbs recommends to admit the patient to hospitalist services and he will consult on the patient. Re-Evaluation - Re-Evaluation First Eval Re-Evaluation Time: 21:36 Comment: Admission was discussed, patient is agreeable. Course/Dx - Diagnoses Provider Diagnoses: GI bleed - Provider Notifications Discussed Care Of Patient With: Nicko Hobbs Time Discussed With Above Provider: 21:04 Instructed by Provider To: Other - 2103 - Patient's case was discussed JUAN Ag. Dr. Hobbs recommends to admit the patient to hospitalist services and he will consult on the patient. 2129 - Patient's case was discussed with Dr. Vivar, Dr. Vivar accepts for admission to hospitalist services. Discharge ED - Sign-Out/Discharge Documenting (check all that apply): Patient Departure - admit, Receiving Sign- Out Receiving patient FROM: Timo Fang - Discharge Plan Condition: Stable Disposition: ADMITTED TO [facility] Referrals: Mickey Manzano MD [Primary Care Provider] - - Billing Disposition and Condition Condition: STABLE Disposition: Admitted to [facility] - Attestation Statements Document Initiated by Uma: Yes Documenting Scribe: FRANCINE RODRIGUEZ Provider For Whom Uma is Documenting (Include Credential): TONIA GAONA MD Scribwendi Attestation: FRANCINE James, scribed for TONIA GAONA MD on 05/10/19 at 0105. Scribe Documentation Reviewed: Yes Provider Attestation: The documentation as recorded by the FRANCINE garcia accurately reflects the service I personally performed and the decisions made by me, TONIA GAONA MD Status of Scribe Document: Viewed
--- NOTE | 2019-05-09 22:08 | ADMNOTE ---
Subjective Interval History: this is H/P 78 yo female with history of HTN presenting with bloody diarrhea. Started monday night, painless, multiple episodes ( 8-12 episodes daily). She said it was pure blood at times, sometimes black, sometimes just clots. She has never had anything like it before, and prior to monday she has never even had black stool. Of note, pt said she had Right lower quadrant pain that she didnt know she had until the ED provider palpated the area. CT abdomen in the ED did not show any acute pathology. Her last colonoscopy was likely over 10 years ago and no abnormalities have ever been reported to her. Denies any history of hemorrhoids , never been constipated. No family hx of colon cancer. Her brother passed from stomach cancer at 41. Pt has not been taking aspirin for about a year. Pt took aleve this morning for back pain but she said this isnt a medication she takes often. She had 1 episode of vomiting 2 days ago but it was clear vomitus. At baseline, very functional, drives and still has a job. She was at work yesterday which is why she didnt come to the hospital sooner when she noticed the bloody diarrhea. ROS is pos: fatigue, dizziness, shortness of breath GI consulted in the ED and will see pt in the am Family History: Unchanged from Admission Social History: Unchanged from Admission Past Medical History: Unchanged from Admission Review of Systems - Measurements Intake and Output: Intake and Output Last 24 Hours 05/07/19 05/08/19 05/09/19 05/10/19 06:59 06:59 06:59 06:59 Intake Total 1000 Balance 1000 Weight 152 lb Intake: IV Fluids 1000 - Review of Systems Constitutional Symptoms: Negative: Weight Gain, Weight Loss, Weakness, Fatigue, Fever, Night Sweats, Unexplained Falls, Other Dermatology: Negative: Normal, Rash, Skin Lesions, Cancer, Skin Lumps, Other HEENT: Negative: Normal, Change in Hearing, Vertigo, Dental Problems, Tinnitus, Sinus Problem, Other Eyes: Negative: Normal, Change in Vision, Double Vision, Eye Pain, Glaucoma, Cataract, Contacts or Glasses, Other Thyroid: Negative: Normal, Goiter, Thyroid Nodule, Cold Intolerance, Heat Intolerance , Sweatiness, Tremor, Frequent Defecation, Constipation, Palpitations, Primary Hypothyroidism, Primary Hyperthyroidism, Weight Loss, Weight Gain, Change in Skin/Hair, Change in Menstruation, Radiation Exposure, Other Pulmonary: Positive: Shortness of Breath Negative: Normal, Cough, Sputum, Hemoptysis, Wheezing, Respiratory Distress, COPD, Asthma, Exercise Intolerance, Home Oxygen, Other Cardiology: Negative: Normal, Chest Pain, Shortness of Breath, Palpitations, Swelling of Ankles, Peripheral Vascular Dis, Edema, Faintness, Syncope, Claudication, Proximal NocturnalDyspnea, Orthopnoea, Other Gastroenterology: Positive: Diarrhea, Blood in Stools Negative: Normal, Abdominal Pain, Nausea, Vomiting, Anorexia, Indigestion, Difficulty Swallowing, Heartburn, Constipation, Change in Bowel Habits, Haematemesis, Melena, Other Genital - Urinary: Negative: Normal, Dysuria, Hematuria, Polyuria, Nocturia, Other Musculoskeletal: Negative: Joint Pain, Joint Stiffness, Arthritis, Osteoporosis, Low Back Pain , Sciatica, Joint Deformities, Kyphoscoliosis, Other Endocrinology: Negative: Normal, Thyroid Problems, Adrenal Problems, Gonadal Problems, Family Hx Endocrine Disorders, Obesity, Diabetes Mellitus, Hyperglycemia, Hx Hypoglycemia, Diabetic Foot Ulcers, Calluses, Hirsutism, Menstrual Abnormalities , Polydipsia, Polyuria, Gonadal Problems, Gynecomastia, Pituitary disease, Other Hematologic/Lymphatic: Negative: Anemia, Easy Bruising, Hx Leukemia, Hx Lymphoma, Use of Anticoagulant, Use of Antiplatelet Drugs, Other Neurology: Negative: Normal, Headache, Migraines, Change in Vision, Diplopia, Dizziness , Change in Balancing, Change in Coordination, Change in Memory, Change in Speech, Change in Sphincter Function, Change in Walking, Numbness\Paresthesiae, Unexplained Weakness, Hx of Stroke\TIA, Hx of Seizures, Other Psychiatry: Negative: Normal, Depression, Anxiety, Depressed Mood, Anhedonia, Sexual Dysfunction, Weight Change, Guilt Feelings, Tearfulness, Unusual Fatigue, Unusual Anxiety, Suicidal Ideation, Hypomania, Eating Disorders, Other Objective Vital Signs - 8 hr 05/09/19 05/09/19 05/09/19 16:30 17:57 18:38 Temperature 98.0 F Pulse Rate 95 Respiratory 19 19 Rate Blood Pressure 130/76 89/71 (mmHg) O2 Sat by Pulse 84 Oximetry 05/09/19 05/09/19 05/09/19 18:46 19:00 19:04 Temperature Pulse Rate 77 78 Respiratory 17 24 16 Rate Blood Pressure 144/86 (mmHg) O2 Sat by Pulse 100 100 Oximetry 05/09/19 05/09/19 05/09/19 19:17 20:00 20:16 Temperature Pulse Rate 78 77 77 Respiratory 21 17 18 Rate Blood Pressure 141/70 141/77 (mmHg) O2 Sat by Pulse 100 100 100 Oximetry 05/09/19 05/09/19 05/09/19 20:46 21:00 21:16 Temperature Pulse Rate 78 72 72 Respiratory 17 21 19 Rate Blood Pressure 122/62 121/53 (mmHg) O2 Sat by Pulse 100 98 100 Oximetry 05/09/19 21:46 Temperature Pulse Rate 69 Respiratory 17 Rate Blood Pressure 109/59 (mmHg) O2 Sat by Pulse 100 Oximetry Appearance: NID- very pleasant Eyes: No Scleral Icterus, PERRLA Ears/Nose/Mouth/Throat: - - no dentition, clear mucus membrane Neck: NL Appearance and Movements; NL JVP, Trachea Midline Respiratory: Symmetrical Chest Expansion and Respiratory Effort, Clear to Auscultation Cardiovascular: - - systolic murmur Abdominal: NL Sounds; No Tenderness; No Distention Lymphatic: No Cervical Adenopathy Extremities: No Edema Skin: No Rash or Ulcers, No Nodules or Sclerosis Neurological: Alert and Oriented x 3, NL Muscle Strength and Tone Result Diagrams: 05/10/19 01:23 05/09/19 17:28 Assess/Plan/Problems-Billing Assessment: - Patient Problems (1) Lower GI bleed Current Visit: Yes Status: Acute Code(s): K92.2 - GASTROINTESTINAL HEMORRHAGE, UNSPECIFIED SNOMED Code(s): 37728426 Comment: Presenting with bloody diarrhea. Pt has been passing pure blood for the past 2-3 days prevous H.H was normal a few months ago. She is symptomatic due to blood loss ( dyspnea, fatigue, pallor, dizziness) GI consulted and will see pt tomorrow for bleed. NPO, CBC Q8H (2) HTN (hypertension) Current Visit: Yes Status: Acute Code(s): I10 - ESSENTIAL (PRIMARY) HYPERTENSION SNOMED Code(s): 45866542 Comment: hold toprol (3) DVT prophylaxis Current Visit: Yes Status: Acute Code(s): Z29.9 - ENCOUNTER FOR PROPHYLACTIC MEASURES, UNSPECIFIED SNOMED Code(s): 581746340 Comment: TEDs, SCDs (4) Full code status Current Visit: Yes Status: Acute Code(s): Z78.9 - OTHER SPECIFIED HEALTH STATUS SNOMED Code(s): 305685395 Comment: Jennyfer Almazan ( niece) is her HCP. Her family will bring in the forms
[2019-05-10 01:31] LABS: ABS Lymphocytes 1.8 10^3/ul (1.0-4.8); ABS Monocytes 0.8 10^3/ul (0-0.8); ABS Neutrophils 5.6 10^3/ul (1.5-7.7); Eosinophil % 0.4 %; Hematocrit 20 % (35-47); Hemoglobin 7.1 g/dL (12.0-16.0); Lymphocyte % 21.5 %; Mean Corpuscular HGB Conc 35 g/dL (31-36); Mean Corpuscular Hemoglobin 33 pg (27-31); Mean Corpuscular Volume 93 fL (80-97); Mean Platelet Volume 7.1 fL (7.4-10.4); Platelet Count 254 10^3/uL (150-450); Red Blood Count 2.15 10^6 /uL (3.70-4.87); Red Cell Distribution Width 14 % (10-15); White Blood Count 8.3 10^3/uL (3.5-10.8)
[2019-05-10] MEDS ORDERED: PEG 3000 GI LAVAGE* 1 GALLON PO ONE (02:49)
[2019-05-10] MEDS: NS 0.9% 1000 ML** 1,000 ML IV SCH (03:00)
[2019-05-10] MEDS: Acetaminophen TAB* 325 MG PO PRN ×2 (04:44→11:36)
[2019-05-10] MEDS: Ondansetron INJ* 2 MG/ML VIAL IV PRN ×2 (05:26→21:48)
[2019-05-10] MEDS ORDERED: PROCHLORPERAZINE INJ 5 MG/ML 2 ML VIAL IV PRN (06:18)
[2019-05-10 07:10] LABS: ABS Basophils 0.1 10^3/ul (0-0.2); ABS Eosinophils 0.1 10^3/ul (0-0.6); ABS Lymphocytes 1.6 10^3/ul (1.0-4.8); ABS Monocytes 0.9 10^3/ul (0-0.8); ABS Neutrophils 8.9 10^3/ul (1.5-7.7); Eosinophil % 0.5 %; Hematocrit 21 % (35-47); Lymphocyte % 14.1 %; Mean Corpuscular HGB Conc 34 g/dL (31-36); Mean Corpuscular Hemoglobin 32 pg (27-31); Mean Corpuscular Volume 93 fL (80-97); Mean Platelet Volume 7.3 fL (7.4-10.4); Platelet Count 308 10^3/uL (150-450); Red Blood Count 2.21 10^6 /uL (3.70-4.87); Red Cell Distribution Width 14 % (10-15); White Blood Count 11.5 10^3/uL (3.5-10.8)
[2019-05-10 07:17] LABS: INR 1.08 (0.82-1.09)
[2019-05-10 07:26] LABS: BUN/Creatinine Ratio 28.9 (8-20); Calcium 8.5 mg/dL (8.6-10.3); EGFR African American 52.1 (>60); Potassium 3.5 mmol/L (3.5-5.0)
[2019-05-10] MEDS ORDERED: Pneumococcal *Vac Polyvalent 0.5 ML VIAL IM ONE (09:00)
[2019-05-10] MEDS ORDERED: Pantoprazole IV* 40 MG IV SCH (11:03)
[2019-05-10] MEDS ORDERED: Metoprolol Succinate XL TAB* 25 MG PO ONE (11:14)
[2019-05-10 12:26] LABS: Hematocrit 18 % (35-47); Hemoglobin 6.2 g/dL (12.0-16.0)
[2019-05-10] MEDS ORDERED: Furosemide IV* 10 MG/ML 2 ML VIAL (20 MG) IV ONE (13:03)
[2019-05-10] MEDS ORDERED: Midazolam* 1 MG/ML 10 ML VIAL (10 MG) ONE (14:16)
[2019-05-10] MEDS ORDERED: fentaNYL* 50 MCG/ML 2 ML VIAL (100 MCG VIAL) ONE (14:16)
--- NOTE | 2019-05-10 16:21 | PN ---
Subjective Date of Service: 05/10/19 Interval History: patient seen this morning. she did have several PRBPR this morning. Awaiting GI evaluations. consent for Blood transfusion obtained. T+C 2 units ordered. Placed on H/H. No vomiting. denies any abdominal pain Past Medical History: Unchanged from Admission Objective Active Medications: Acetaminophen (Tylenol Tab*) 650 mg PO Q6H PRN PRN Reason: .PAIN Last Admin: 05/10/19 11:36 Dose: 650 mg Sodium Chloride (Ns 0.9% 1000 Ml) 1,000 mls @ 100 mls/hr IV PER RATE [facility] Last Admin: 05/10/19 03:00 Dose: 100 mls/hr Metoprolol Succinate (Toprol Xl Tab*) 25 mg PO DAILY [facility] Ondansetron HCl (Zofran Inj*) 4 mg IV Q6H PRN PRN Reason: NAUSEA Last Admin: 05/10/19 05:26 Dose: 4 mg Pantoprazole Sodium (Protonix Iv*) 40 mg IV BID [facility] Last Admin: 05/10/19 11:38 Dose: 40 mg Prochlorperazine Edisylate (Compazine Inj*) 10 mg IV Q6H PRN PRN Reason: NAUSEA/VOMITING Ropinirole HCl (Requip Tab*) 2 mg PO BEDTIME [facility] Vital Signs - 8 hr 05/10/19 05/10/19 05/10/19 09:48 11:33 12:45 Temperature 97.8 F 97.8 F Pulse Rate 99 83 Respiratory 20 20 18 Rate Blood Pressure 129/52 102/48 (mmHg) O2 Sat by Pulse 91 99 Oximetry 05/10/19 13:31 Temperature 98.1 F Pulse Rate 73 Respiratory 20 Rate Blood Pressure 118/50 (mmHg) O2 Sat by Pulse 97 Oximetry Oxygen Devices in Use Now: None Appearance: awake, alert comfortable. no distress Eyes: No Scleral Icterus, - - EOMI Ears/Nose/Mouth/Throat: NL Teeth, Lips, Gums, Mucous Membranes Moist Neck: NL Appearance and Movements; NL JVP, Trachea Midline Respiratory: Symmetrical Chest Expansion and Respiratory Effort, Clear to Auscultation Cardiovascular: NL Sounds; No Murmurs; No JVD, No Edema Abdominal: NL Sounds; No Tenderness; No Distention Extremities: No Edema Skin: No Rash or Ulcers Neurological: Alert and Oriented x 3 Result Diagrams: 05/10/19 12:05 05/10/19 06:52 Assess/Plan/Problems-Billing Assessment: 78 y/o female admitted for BRBPR today. awating GI for colonoscopy - Patient Problems (1) Lower GI bleed Current Visit: Yes Status: Acute Code(s): K92.2 - GASTROINTESTINAL HEMORRHAGE, UNSPECIFIED SNOMED Code(s): 87670137 Comment: - Presenting with bloody diarrhea for the past 2-3 days - GI consulted for colonoscopy today - Will place her on H/H and will transfuse 2 units today - Started Protonix 40 mg IV bid (2) HTN (hypertension) Current Visit: Yes Status: Acute Code(s): I10 - ESSENTIAL (PRIMARY) HYPERTENSION SNOMED Code(s): 11848427 Comment: - Resumed toprol (3) DVT prophylaxis Current Visit: Yes Status: Acute Code(s): Z29.9 - ENCOUNTER FOR PROPHYLACTIC MEASURES, UNSPECIFIED SNOMED Code(s): 694552102 Comment: Emma Yates
--- NOTE | 2019-05-10 17:40 | PN ---
Progress Note - Progress Note Date of Service: 05/10/19 Note: GI Brief EGD and Colon Note: E: nml G: hemorrhagic gastritis, scant ooze. not significant. bx and bicap at 20W, no further oozing. D: nml, no fresh or old blood. Colon to cecum Incredibly difficult colonoscopy, over 1 hour navigating colon, sharp angulations and adhesions. Filled with old blood that was washed. Cecum eventually reached- unable to intubate TI. Lavaged extensively, no fresh bleeding visualized. Remainder of colon lavaged and no fresh blood found. Very scant diverticulosis on left, doubt cause. Impression No clear etiology found. No large masses or lesions but insufficient for small polyp detection Suspect may have been right sided colonic dieulafoy lesion vs. more likely distal small bowel source Recommendation Monitor h/h, suspect may drop a bit then stabilize. No evidence of active source at this time. If decreasing H/H would get nuclear medicine bleeding scan stat. Continue PPI drip for hemorrhagic gastritis but unlikely source Repeat endoscopic intervention unlikely to be successful Avoid NSAIDs. Yousif Li DO 05/10/19 0744
[2019-05-10 19:21] LABS: Hematocrit 22 % (35-47); Hemoglobin 7.5 g/dL (12.0-16.0)
--- NOTE | 2019-05-10 19:55 | CONS ---
CC: Dr. Manzano* CONSULTATION REPORT: DATE OF CONSULT: 05/10/19 PRIMARY CARE PHYSICIAN: Dr. Manzano. REQUESTING PHYSICIAN: Dr. Corado. REASON FOR CONSULT: Melena. HISTORY OF PRESENT ILLNESS: This is a very pleasant 78-year-old female who presented to the emergency room with melena and hematochezia. She stated this started on Monday evening. She denies any pain, but has had multiple episodes of bright red blood and very dark stool, sticky like tar. She denies any nausea or emesis. Denies any dysphagia or odynophagia. She denies any weight loss or weight gain. Her appetite has been good. She does take Aleve on a frequent basis. No history of this before. She states that she had a colonoscopy over 10 years ago. She currently denies any abdominal pain. She states today that the stool is still very dark and black. Denies any lightheadedness. Admits to a little bit of dizziness, however, when she goes from a seated to a standing position and states that she does have some dyspnea. Remainder of the 14-point review of systems was grossly negative. PAST MEDICAL HISTORY: Hypertension, distant history of SVT in the . PAST SURGICAL HISTORY: Hysterectomy and oophorectomy at age 21, cholecystectomy in the , and appendectomy when she was a young child. HOME MEDICATIONS: Include metoprolol and ReQuip. ALLERGIES: Include IODINATED CONTRAST and environmental allergies. SOCIAL HISTORY: Does not smoke. Rarely uses alcohol. She is very high functioning, drives and works at this point. REVIEW OF SYSTEMS: Remainder of the 14-point review of systems is grossly negative, except for as described in the HPI. PHYSICAL EXAM: Vital Signs: Blood pressure 129/52, pulse is 99, temperature is 97.8. She was 91% on room air. General: Alert and oriented x3, in no acute distress. HEENT: Atraumatic, normocephalic. Pupils equal, round, and reactive to light. Extraocular movements are intact. Conjunctivae are pink. Sclerae anicteric. Cardiovascular: Regular rate and rhythm. S1, S2. Respiratory: Clear to auscultation bilaterally. Abdomen: Soft, nontender, nondistended. Bowel sounds positive. Extensive deep scar noted on the right lower quadrant with pitting. Extremities: No clubbing, no cyanosis, no edema. Psych: Appropriate mood and affect. DIAGNOSTIC STUDIES/LAB DATA: Laboratory Data: Hemoglobin on admission 8.4; this morning was 7 and now down to 6.2. INR is 1.08. BUN is 35, creatinine 1.21, lactic acid was 2.4 on admission; now 0.8. She had a CT of the abdomen and pelvis done on 05/09/19. This showed some fluid within the ascending colon and the transverse colon, but otherwise was unremarkable. ASSESSMENT AND PLAN: This is a 78-year-old female with acute blood loss anemia and melena. 1. Acute blood loss anemia. Recommend H and H every 6 hours. Keep 2 units of PRBCs on hold, transfuse as needed when hemoglobin below 7 per hospitalist service. Agree with IV PPI drip. I discussed the risks, benefits, and alternatives and we will proceed with EGD and possible flexible sigmoidoscopy/ colonoscopy if no source is found on the upper endoscopy today. Given her NSAID use, suspicion is high for peptic ulcer disease. Recommend avoiding NSAIDs. 2. Melena. As above. [id number]/[facility] #: [id number] [facility]
[2019-05-10] MEDS: rOPINIRole TAB* 1 MG PO SCH (20:53)
[2019-05-10] MEDS: Pantoprazole* 80 mg IN NS 80 MG/250 ML BAG IV SCH (20:54)
[2019-05-10 23:47] LABS: Hematocrit 24 % (35-47); Hemoglobin 7.2 g/dL (12.0-16.0)
--- NOTE | 2019-05-10 23:53 | PRO ---
CC: Dr. Mickey Manzano* ESOPHAGOGASTRODUODENOSCOPY AND COLONOSCOPY REPORT: DATE OF SERVICE: 05/10/19 - Inpatient, room 444-02 PROCEDURE PERFORMED: Complete esophagogastroduodenoscopy with hemostasis and BICAP cautery and complete colonoscopy to the cecum. MEDICATIONS GIVEN: Include: 1. 10 mg IV midazolam. 2. 87.5 mcg IV fentanyl. DESCRIPTION OF PROCEDURE: After the EGD and colonoscopy procedure were explained to the patient, including the risks, benefits, and alternatives, with the risks not limited to perforation, surgery, missed lesions, and/or were explained to the patient, written informed consent was obtained, IV medication was given. A bite- block was placed between the teeth. The adult Olympus gastroscope was then inserted into the patient's oropharynx into the tubular esophagus. The tubular esophagus was normal in appearance. The scope was advanced to the lower esophageal sphincter into the stomach. There was diffuse gastritis, few hemorrhagic foci were noted with scant oozing. These were cauterized with BICAP. I also took a biopsy of the gastritis in multiple areas. No bleeding was noted after the BICAP therapy at 20 jaimes. The scope was advanced through the widely patent pylorus into the duodenal bulb, C-loop, and distal duodenum. These were normal in appearance. The scope was then returned to the stomach. On retroflexion, a small sliding hiatal hernia was appreciated. The scope was then removed from the patient. She was then rotated , given additional IV sedation. A rectal exam was performed and the rectal exam revealed bright red blood but normal tone. Next, the pediatric Olympus colonoscope was inserted into the patient's rectum and advanced very carefully through the entirety of the colon into the cecum. The entire colon was filled with some mild blood. The colonoscopy was incredibly difficult taking over 1 hour to traverse beyond just the hepatic flexure and an additional 15 to 20 minutes to get to the cecum. Eventually, the cecum was reached. Extensive lavage was done throughout the entirety of the colon. No fresh bleeding was noted after slow withdrawal. I was unable to intubate the terminal ileum; however, I did not see any evidence of active oozing from that site. Over the next 10 minutes, the scope was carefully withdrawn lavaging the entirety of the colon again. Again, no fresh sites of oozing were visualized. She had maybe 3 to 4 subcentimeter diverticular pockets without evidence of active bleeding in the sigmoid colon. The remainder of the colonic wall appeared normal; however, the prep was unsuitable for polyp detection today given the bleeding. On return to the rectum, direct views were normal and retroflexion views were normal as well. The scope was then removed from the patient. She tolerated the procedure well. She returned to the recovery room in stable condition. IMPRESSION: 1. Complete esophagogastroduodenoscopy with biopsies and hemostasis with BICAP at 20 jaimes as above. 2. Hemorrhagic gastritis, status post BICAP therapy and biopsy. 3. Otherwise normal EGD. 4. Complete colonoscopy to the cecum. 5. Poor prep. 6. Colon filled with old blood and extensively lavaged. No fresh bleeding identified. 7. Incredibly difficult colonoscopy as above. 8. No source identified, question due to fully erosive distal small bowel source. RECOMMENDATIONS: No clear etiology of the patient's acute blood loss anemia was found today. After extensive lavage, no foci was noted within the colon. It is possible she had a bleed from the distal terminal ileum or had a right colonic Dieulafoy lesion that has since closed up. At this point, we would recommend monitoring H and H every 6 hours. I suspect she may drop a little further and then stabilize. Transfuse as needed to keep her hemoglobin above 7 per the hospitalist service. I would recommend continuing the PPI drip at this point given the hemorrhagic gastritis above, but this is an unlikely source of the anemia. If she continues to drop her hemoglobin, we would recommend getting a stat nuclear medicine tagged RBC scan to evaluate for potential source. I feel that repeat endoscopic therapy is unlikely to be successful. [id number]/[facility] #: [id number] [facility]
[2019-05-11] MEDS ORDERED: NS 0.9% 1000 ML** 1,000 ML IV ONE (02:21)
[2019-05-11 02:52] LABS: Hematocrit 20 % (35-47); Hemoglobin 6.7 g/dL (12.0-16.0); Mean Corpuscular HGB Conc 34 g/dL (31-36); Mean Corpuscular Hemoglobin 31 pg (27-31); Mean Corpuscular Volume 90 fL (80-97); Mean Platelet Volume 7.3 fL (7.4-10.4); Platelet Count 232 10^3/uL (150-450); Red Blood Count 2.18 10^6 /uL (3.70-4.87); Red Cell Distribution Width 16 % (10-15)
[2019-05-11] MEDS: Pantoprazole* 80 mg IN NS 80 MG/250 ML BAG IV SCH ×2 (06:27→17:10)
[2019-05-11] MEDS: NS 0.9% 1000 ML** 1,000 ML IV SCH (06:30)
[2019-05-11 06:45] LABS: INR 1.04 (0.82-1.09)
[2019-05-11 06:46] LABS: ABS Lymphocytes 1.3 10^3/ul (1.0-4.8); ABS Monocytes 0.6 10^3/ul (0-0.8); ABS Neutrophils 8.3 10^3/ul (1.5-7.7); Eosinophil % 0.2 %; Hematocrit 20 % (35-47); Hemoglobin 6.9 g/dL (12.0-16.0); Lymphocyte % 12.7 %; Mean Corpuscular HGB Conc 35 g/dL (31-36); Mean Corpuscular Hemoglobin 31 pg (27-31); Mean Corpuscular Volume 88 fL (80-97); Mean Platelet Volume 7.4 fL (7.4-10.4); Platelet Count 188 10^3/uL (150-450); Red Blood Count 2.26 10^6 /uL (3.70-4.87); Red Cell Distribution Width 16 % (10-15); White Blood Count 10.3 10^3/uL (3.5-10.8)
[2019-05-11 06:54] LABS: BUN/Creatinine Ratio 25.7 (8-20); Calcium 7.4 mg/dL (8.6-10.3); EGFR African American 97.9 (>60); EGFR Non-African American 80.9 (>60); Magnesium 1.7 mg/dL (1.9-2.7); Phosphorus 3.5 mg/dL (2.5-5.0); Potassium 3.6 mmol/L (3.5-5.0)
[2019-05-11] MEDS ORDERED: Potassium Chloride* LIQUID 20 MEQ/15 ML UDC PO ONE (08:27)
[2019-05-11] MEDS ORDERED: Magnesium Sulfate 2 GM IV* 2 GM/50 ML BAG IVPB ONE (08:29)
[2019-05-11] MEDS: Metoprolol Succinate XL TAB* 25 MG PO SCH (09:06)
--- NOTE | 2019-05-11 14:48 | PN ---
Subjective Date of Service: 05/11/19 Interval History: Patient seen today, sitting up in bed. family at bedside. updated patient and family about her current conditions. Yesterday, she did have dizziness post lasix given between pRBC's. Otherwise no acute events. No further bleed. However her h/H remain low despite her 2 units of pRBC. this morning her Hct is 6.9 post 2 prBC's. Ordered for one more unit today. will recheck at 6 pm and will second units at very slow rate. will try to avoid diuretic unless symptomatic given her murmur and hypotension yesterday post diuretics Past Medical History: Unchanged from Admission Objective Active Medications: Acetaminophen (Tylenol Tab*) 650 mg PO Q6H PRN PRN Reason: .PAIN Last Admin: 05/10/19 11:36 Dose: 650 mg Sodium Chloride (Ns 0.9% 1000 Ml) 1,000 mls @ 100 mls/hr IV PER RATE [facility] Last Admin: 05/11/19 06:30 Dose: 100 mls/hr Pantoprazole Sodium (Protonix Iv Bag*) 80 mg in 250 mls @ 25 mls/hr IV Q10H [facility] Last Admin: 05/11/19 06:27 Dose: 25 mls/hr Metoprolol Succinate (Toprol Xl Tab*) 25 mg PO DAILY [facility] Last Admin: 05/11/19 09:06 Dose: Not Given Ondansetron HCl (Zofran Inj*) 4 mg IV Q6H PRN PRN Reason: NAUSEA Last Admin: 05/10/19 21:48 Dose: 4 mg Prochlorperazine Edisylate (Compazine Inj*) 10 mg IV Q6H PRN PRN Reason: NAUSEA/VOMITING Ropinirole HCl (Requip Tab*) 2 mg PO BEDTIME [facility] Last Admin: 05/10/19 20:53 Dose: 2 mg Vital Signs - 8 hr 05/11/19 05/11/19 05/11/19 07:15 08:19 12:00 Temperature 98.2 F 97.6 F Pulse Rate 86 77 Respiratory 16 16 16 Rate Blood Pressure 93/60 98/59 (mmHg) O2 Sat by Pulse 100 97 Oximetry 05/11/19 12:16 Temperature 97.4 F Pulse Rate 86 Respiratory 18 Rate Blood Pressure 120/44 (mmHg) O2 Sat by Pulse 97 Oximetry Oxygen Devices in Use Now: None Appearance: awake, alert no distress this morning Eyes: No Scleral Icterus, - - EOMI Ears/Nose/Mouth/Throat: NL Teeth, Lips, Gums, Mucous Membranes Moist Neck: NL Appearance and Movements; NL JVP, Trachea Midline Respiratory: Symmetrical Chest Expansion and Respiratory Effort, Clear to Auscultation Cardiovascular: No Edema, - - +3/6 murmur Abdominal: NL Sounds; No Tenderness; No Distention Extremities: - - + edmea Skin: No Rash or Ulcers Neurological: Alert and Oriented x 3 Result Diagrams: 05/11/19 06:16 05/11/19 06:16 Assess/Plan/Problems-Billing Assessment: 78 y/o female admitted for BRBPR today. awating GI for colonoscopy - Patient Problems (1) Lower GI bleed Current Visit: Yes Status: Acute Code(s): K92.2 - GASTROINTESTINAL HEMORRHAGE, UNSPECIFIED SNOMED Code(s): 77435081 Comment: - Presenting with bloody diarrhea for the past 2-3 days - GI consulted s/p colonoscopy/EGD 05/10/19 revealed hemorrhagic gastritis, scant ooze. Colon was filled with old blood that was washed. Cecum reached but were unable to intubate Terminal Ileum. It was Lavaged extensively, and no fresh bleeding visualized. the remainder of colon lavaged and no fresh blood found Very scant diverticulosis on the left and unlikely to be the cause as per GI impression. - Will continue her on H/H. S/p 2 upRBC on admission and will transfuse 1 more unit today - continue Protonix drip Day #24h/72h - If any active bleed will pursue Bleed scan STAT. (2) HTN (hypertension) Current Visit: Yes Status: Acute Code(s): I10 - ESSENTIAL (PRIMARY) HYPERTENSION SNOMED Code(s): 81253727 Comment: - Resumed toprol 25 mg daily (3) Murmur, cardiac Current Visit: Yes Status: Acute Code(s): R01.1 - CARDIAC MURMUR, UNSPECIFIED SNOMED Code(s): 69682596 Comment: - Suspect - will check Echo to assess for Aortic valve espescially given her Labile BP post diuresis. (4) DVT prophylaxis Current Visit: Yes Status: Acute Code(s): Z29.9 - ENCOUNTER FOR PROPHYLACTIC MEASURES, UNSPECIFIED SNOMED Code(s): 642225644 Comment: DOMO Yatess
[2019-05-11] MEDS: Acetaminophen TAB* 325 MG PO PRN (17:08)
[2019-05-11 18:39] LABS: Hematocrit 25 % (35-47)
--- NOTE | 2019-05-11 21:29 | PN ---
Progress Note - Progress Note Date of Service: 05/11/19 Note: GI Follow up Note Patient seen and examined at 1515 Had 3bm so far, states darker, less bright red. Still has urgency. Denies lightheadedness or dizziness. No pain. Tolerating clears. VS: 123/60, P-79, R 20, 95% RA 97.6 Gen: alert and oriented x3, NAD HEENT: AT/NC, PERRLA, eomi, conjunvtiva pink CVS: RRR s1s2 Resp: diminished at base Abd: soft, nt, nd, BS+ Ext: mild edema Lab: Hgb 6.9 A/P 78 year old female with acute blood loss anemia s/p EGD and colonoscopy without clear source. 1.) Acute blood loss anemia: suspect right sided dieulafoy or more likely distal small bowel source. No active bleeding visualized at conclusion of colonoscopy and Hgb has now stabilized. getting additional 1 unit of PRBC now. Suspect bms today is residual old blood. If ongoing bleeding or decrease in H/H get stat nuc med tagged RBC scan. Avoid NSAIDs, continue PPI gtt for 72 hours for the hemorrhagic gastritis then change to 40mg PO daily. Yousif Li DO 05/11/192
[2019-05-11] MEDS: rOPINIRole TAB* 1 MG PO SCH (22:11)
[2019-05-12] MEDS: Acetaminophen TAB* 325 MG PO PRN ×2 (01:57→22:52)
[2019-05-12] MEDS: Pantoprazole* 80 mg IN NS 80 MG/250 ML BAG IV SCH ×2 (03:34→14:05)
[2019-05-12 06:04] LABS: ABS Eosinophils 0.2 10^3/ul (0-0.6); ABS Lymphocytes 1.9 10^3/ul (1.0-4.8); ABS Monocytes 0.6 10^3/ul (0-0.8); Eosinophil % 1.9 %; Hematocrit 21 % (35-47); Hemoglobin 7.1 g/dL (12.0-16.0); Lymphocyte % 19.2 %; Mean Corpuscular HGB Conc 35 g/dL (31-36); Mean Corpuscular Hemoglobin 31 pg (27-31); Mean Corpuscular Volume 88 fL (80-97); Mean Platelet Volume 7.4 fL (7.4-10.4); Nucleated Red Blood Cells % 0.1; Platelet Count 199 10^3/uL (150-450); Red Blood Count 2.33 10^6 /uL (3.70-4.87); Red Cell Distribution Width 17 % (10-15); White Blood Count 9.7 10^3/uL (3.5-10.8)
[2019-05-12 06:21] LABS: BUN/Creatinine Ratio 20.3 (8-20); Calcium 7.7 mg/dL (8.6-10.3); EGFR African American 99.6 (>60); EGFR Non-African American 82.3 (>60); Magnesium 1.9 mg/dL (1.9-2.7); Phosphorus 2.4 mg/dL (2.5-5.0)
[2019-05-12] MEDS: Metoprolol Succinate XL TAB* 25 MG PO SCH (10:39)
--- NOTE | 2019-05-12 12:18 | ECHO ---
*[facility]* [place] [address] Fax #: [phone] Transthoracic Echocardiogram Patient: Estelle Wolff : 1940 Study Date: 05/12/2019 Age: 78 Gender: F HR: 79 bpm Height: 62 in /157.5 cm BSA: 1.71 m^2 Weight: 152.7 lb /69.4 kg BMI: 28 kg/m^2 *Diagnostic Radiologic Technologist: Peri Rothman [facility] *Referring Physician: * David CoradoReading Physician: * Tuan Ohara MD Indications: Murmur. History: Risk factors: Hypertension. Conclusions Summary: - Left ventricle: The cavity size is normal. Wall thickness is mildly increased. Systolic function is normal. The estimated ejection fraction is 65-70%. Wall motion is normal; there are no regional wall motion abnormalities. - Right ventricle: The cavity size is normal. Systolic function is normal. - Left atrium: The atrium is moderately dilated. - Aortic valve: The findings are consistent with severe stenosis. The peak systolic velocity is 4.8 m/sec. The mean systolic gradient is 60.0 mm Hg with a hemoglobin of 7 at time of study. - Pulmonary arteries: Systolic pressure is within the normal range. Recommendations: No recent studies available for comparison. Study data: Transthoracic echocardiogram. Procedure: Transthoracic echocardiography was performed. Image quality was good. Complete 2D, spectral Doppler, and color flow Doppler. Location: Bedside. Patient status: Inpatient. Patient room number: 444 02. Rhythm: Normal sinus rhythm. Findings Left ventricle: The cavity size is normal. Wall thickness is mildly increased. Systolic function is normal. The estimated ejection fraction is 65-70%. Wall motion is normal; there are no regional wall motion abnormalities. Doppler parameters are consistent with abnormal left ventricular relaxation (grade 1 diastolic dysfunction). Right ventricle: The cavity size is normal. Systolic function is normal. Left atrium: The atrium is moderately dilated. Right atrium: The atrium is normal in size. Mitral valve: The leaflets are mildly thickened. There is no evidence of stenosis. There is trace to mild regurgitation. Aortic valve: The valve is trileaflet. The leaflets are moderately calcified. Valve mobility is moderately restricted. The findings are consistent with severe stenosis. There is mild to moderate regurgitation. Tricuspid valve: The leaflets are normal thickness. There is no evidence of stenosis. There is mild regurgitation. Pulmonic valve: The leaflets are normal thickness. There is no evidence of stenosis. There is mild regurgitation. Aorta: The aortic root appears normal. The aortic arch appears normal. Pericardium: There is no significant pericardial effusion. Pulmonary arteries: Not well visualized. Systolic pressure is within the normal range. Systemic veins: Inferior vena cava: The vessel is normal in size. There is (>= 50%) respiratory change in the IVC dimension. Measurements Left ventricle Value Ref Aortic valve continued Value Ref TALISHA, LAX 4.4 cm 3.8 - 5.2 LVOT/AV, VTI ratio 0.32 ----- ESD, LAX 2.8 cm 2.2 - 3.5 DEVANTE, VTI 0.94 cm^2 ----- FS, LAX 37 % 27 - 45 DEVANTE, Vmax 1.09 cm^2 ----- PW, ED, LAX (H) 1.3 cm 0.6 - 0.9 AR peak v 3.5 m/sec ----- E', lat pernell, TDI (L) 6.2 cm/sec >=10.0 AR PHT 318 ms - ---- E/e', lat pernell, 15 AR peak grad 49 mm Hg ---- - TDI E', med pernell, TDI (L) 4.7 cm/sec >=7.0 Mitral valve Value R ef E/e', med pernell, 20 Peak E 0.93 m/sec ---- - TDI Peak A 1.06 m/sec ----- E', avg, TDI 5.5 cm/sec Decel time 177 ms ---- - E/e', avg, TDI (H) 17 <=14 PHT 59 ms - ---- Mean grad, D 3.0 mm Hg ----- LVOT Value Ref Peak grad, D 7.0 mm Hg ----- Diam, S 2.00 cm Peak E/A ratio 0.9 ----- Area 3.1 cm^2 MVA, PHT 3.7 cm^2 ----- Peak christopher, S 1.66 m/sec VTI, S 38.9 cm Pulmonic valve Value Ref Peak grad, S 11 mm Hg Peak v, S 0.82 m/sec ----- Mean grad, S 2 mm Hg Peak grad, S 3.0 mm Hg ----- SV 81 ml Tricuspid valve Value Ref Ventricular septum Value Ref TR peak v 2.6 m/sec <=2.8 IVS, ED (H) 1.4 cm 0.6 - 0.9 Peak RV-RA grad, S 27 mm Hg ----- Right ventricle Value Ref Aortic root Value Ref TALISHA, LAX 2.7 cm Root diam 2.8 cm <3.9 TALISHA minor ax, A4C 2.3 cm 1.9 - 3.5 mid Ascending aorta Value Ref Pressure, S 35 mm Hg AAo AP diam, S 2.8 cm ----- Left atrium Value Ref Aortic arch Value Ref AP dim, ES (H) 4.20 cm 2.70 - Arch diam 2.7 cm ----- 3.80 ML dim, A4C 5.2 cm Pulmonary artery Value Ref SI dim, A4C 5.4 cm Pressure, S 32.0 mm Hg ----- Vol/bsa, ES, A/L (H) 50 ml/m^2 16 - 34 Inferior vena cava Value Ref Right atrium Value Ref Diam 1.6 cm ----- SI dim, ES 4.4 cm 3.4 - 5.3 ML dim, ES, A4C 3.4 cm 2.6 - 4.4 Pulmonary veins Value Ref Estimated RAP 8 mm Hg Peak v, S 0.88 m/sec ----- Peak v, D 0.58 m/sec ----- Aortic valve Value Ref Peak S/D ratio 1.5 ----- Pernell diam, ED 2.0 cm A rev duration 106 ms ----- Peak v, S 4.8 m/sec VTI, S 130.0 cm Mean grad, S 60.0 mm Hg Peak grad, S 91.0 mm Hg Legend: (L) and (H) jose raul values outside specified reference range. Prepared and electronically signed by Tuan Ohara MD 05/12/2019 12:17
--- NOTE | 2019-05-12 13:06 | PN ---
Subjective Date of Service: 05/12/19 Interval History: Patient seen this morning. She did have Bright red per rectum this morning. Her H/H dropped again despite her transfusion yesterday. I will be putting her 4th units today. I ordered RBC scan and called radiology to approve. Plan to have it done today. Echo reviewed. Severe (high correlation with SB AVM)! I did call cardiology to evaluate her severity (if and when her anemia is stable) to assess if she is candidate for TAVR inpatient setting or outpatient setting. Patient was getting symptomatic with hypotension after single dose of diuresis post transfusion. Past Medical History: Unchanged from Admission Objective Active Medications: Acetaminophen (Tylenol Tab*) 650 mg PO Q6H PRN PRN Reason: .PAIN Last Admin: 05/12/19 01:57 Dose: 650 mg Pantoprazole Sodium (Protonix Iv Bag*) 80 mg in 250 mls @ 25 mls/hr IV Q10H [facility] Last Admin: 05/12/19 03:34 Dose: 25 mls/hr Metoprolol Succinate (Toprol Xl Tab*) 25 mg PO DAILY [facility] Last Admin: 05/12/19 10:39 Dose: 25 mg Ondansetron HCl (Zofran Inj*) 4 mg IV Q6H PRN PRN Reason: NAUSEA Last Admin: 05/10/19 21:48 Dose: 4 mg Prochlorperazine Edisylate (Compazine Inj*) 10 mg IV Q6H PRN PRN Reason: NAUSEA/VOMITING Ropinirole HCl (Requip Tab*) 2 mg PO BEDTIME [facility] Last Admin: 05/11/19 22:11 Dose: 2 mg Vital Signs - 8 hr 05/12/19 05/12/19 05/12/19 07:15 08:00 11:15 Temperature 97.4 F 98 F Pulse Rate 102 64 Respiratory 18 18 20 Rate Blood Pressure 142/57 126/48 (mmHg) O2 Sat by Pulse 98 Oximetry Oxygen Devices in Use Now: None Appearance: awake, alert. no acute distress Eyes: No Scleral Icterus, - - EOMI Ears/Nose/Mouth/Throat: NL Teeth, Lips, Gums, Mucous Membranes Moist Neck: NL Appearance and Movements; NL JVP, Trachea Midline Respiratory: Symmetrical Chest Expansion and Respiratory Effort Cardiovascular: - - + 1 edmea. Systollic murmur +3/6 Abdominal: NL Sounds; No Tenderness; No Distention Extremities: - - Edema Skin: No Rash or Ulcers Neurological: Alert and Oriented x 3 Result Diagrams: 05/12/19 05:43 05/12/19 05:43 Assess/Plan/Problems-Billing Assessment: 78 y/o female admitted for BRBPR today. awating GI for colonoscopy - Patient Problems (1) Lower GI bleed Current Visit: Yes Status: Acute Code(s): K92.2 - GASTROINTESTINAL HEMORRHAGE, UNSPECIFIED SNOMED Code(s): 82589689 Comment: - Presenting with bloody diarrhea for the past 2-3 days before admission - GI consulted s/p colonoscopy/EGD 05/10/19 revealed hemorrhagic gastritis, scant ooze. Colon was filled with old blood that was washed. Cecum reached but were unable to intubate Terminal Ileum. It was Lavaged extensively, and no fresh bleeding visualized. The remainder of colon lavaged and no fresh blood found Very scant diverticulosis on the left and unlikely to be the cause as per GI impression. - Her H/H dropped again this morning despite transfusion and one episode of BRBPR today. - Will continue her on H/H. S/p 3 uPRBC since admissions. I will transfuse 1 more unit today and recheck at 2 pm. If she requires one more unit will have to give FFP as well. - Continue Protonix drip Day #48h/72h - Bleed scan STAT ordered and discussed with radiology administrative personal assistant. Pending result we may need to consult surgery if she continue to bleed. - Given her my suspicion source probably AVM from SB. Discussed with GI and agrees (2) Aortic stenosis Current Visit: Yes Status: Acute Code(s): I35.0 - NONRHEUMATIC AORTIC (VALVE ) STENOSIS SNOMED Code(s): 86220082 Comment: - Severe . Gradient 60 mmHg - Given the severity and her Labile BP post diuresis. I did request cardiology input regarding the severity of if it does require intervention ( TAVR) as inpatient versus oupatient - I have not given her diuretic since her episode after her first transfusion. However; now that she is on her 4th unit, I will have to diurese "carefully" and will monitor closely for hypotension. (3) Murmur, cardiac Current Visit: Yes Status: Acute Code(s): R01.1 - CARDIAC MURMUR, UNSPECIFIED SNOMED Code(s): 34557135 Comment: - Severe . Gradient 60 mmHg - Given the severity and her Labile BP post diuresis. I did request cardiology input regarding the severity of if it does require intervention ( TAVR) as inpatient versus oupatient (4) HTN (hypertension) Current Visit: Yes Status: Acute Code(s): I10 - ESSENTIAL (PRIMARY) HYPERTENSION SNOMED Code(s): 42499211 Comment: - Resumed toprol 25 mg daily/ Careful BP monitoring (5) DVT prophylaxis Current Visit: Yes Status: Acute Code(s): Z29.9 - ENCOUNTER FOR PROPHYLACTIC MEASURES, UNSPECIFIED SNOMED Code(s): 709403285 Comment: Emma Yates
--- NOTE | 2019-05-12 14:41 | CONSULT ---
Subjective Date of Service: 05/12/19 Interval History: Admission Date: 05/09/19 Consult date 05/10/2019 PCP: Dr. Manzano CC: Melena, hematochezia Reason for consult: Aortic stenosis HPI 78 yo woman with a history as below. Her boyfriend sees Dr. Loaiza and also Dr. Adkins (EP). Nephew and niece are at bedside. 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 She had an "angina attack" at age 55 and has been on metoprolol since then. Patient tells me she had an essentially normal cardiac catheterization ~ [address] [facility] - this cannot be confirmed. Until prior to admission she was doing well and working without chest discomfort, dyspnea or exertional presyncope/syncope. She does get fatigued and times and will fall asleep easily per her niece. Her main complaint has been low back pain. She was admitted with GI bleed both melena and hematochezia. She had another episode this morning. Endoscopy reports reviewed and exact source is uncertain. Had another bleeding episode this AM and tagged scan completed and results pending. Pmhx: HTN SVT Anxiety Dyslipidemia Degenerative disc disease of spine Family hx brother stomach cancer at 41. Social Hx As above Jennyfer Case niece is HCP Quit smoking 1996, 7.5 pack years occasional alcohol no drugs Allergies Allergy/AdvReac Type Severity Reaction Status Date / Time Iodinated Contrast Media Allergy Shakes Verified 05/09/19 18:42 [Iodinated Contrast- Oral and IV Dye] Medications Active Medications: Acetaminophen (Tylenol Tab*) 650 mg PO Q6H PRN PRN Reason: .PAIN Last Admin: 05/12/19 01:57 Dose: 650 mg Pantoprazole Sodium (Protonix Iv Bag*) 80 mg in 250 mls @ 25 mls/hr IV Q10H [facility] Last Admin: 05/12/19 14:05 Dose: 25 mls/hr Metoprolol Succinate (Toprol Xl Tab*) 25 mg PO DAILY [facility] Last Admin: 05/12/19 10:39 Dose: 25 mg Ondansetron HCl (Zofran Inj*) 4 mg IV Q6H PRN PRN Reason: NAUSEA Last Admin: 05/10/19 21:48 Dose: 4 mg Prochlorperazine Edisylate (Compazine Inj*) 10 mg IV Q6H PRN PRN Reason: NAUSEA/VOMITING Ropinirole HCl (Requip Tab*) 2 mg PO BEDTIME [facility] Last Admin: 05/11/19 22:11 Dose: 2 mg Home Medications: Metoprolol Succinate XL TAB* [Toprol XL TAB*] 25 mg PO DAILY 05/09/19 [History Confirmed 05/09/19] rOPINIRole TAB* [Requip TAB*] 2 mg PO BEDTIME 05/09/19 [History Confirmed ] Review of Systems - Measurements Intake and Output: Intake and Output Last 24 Hours 05/10/19 05/11/19 05/12/19 05/13/19 06:59 06:59 06:59 06:59 Intake Total 1000 2852 3041 528 Output Total 0 250 650 Balance 1000 2602 2391 528 Weight 153 lb 14.4 oz Intake: IV Fluids 1000 1674 883 198 NS (0.9%) 1321 191 Pantoprazole 353 692 198 Oral 0 460 1860 330 Packed Cells 718 298 Output: Urine 0 250 650 Other: Estimated Void Large # Bowel Movements 1 1 Estimated Stool Amount Large Large Small - Review of Systems Constitutional Symptoms: Negative: Weight Gain, Weight Loss, Fever, Night Sweats Dermatology: Negative: Rash, Skin Lesions HEENT: Negative: Change in Hearing, Vertigo Eyes: Negative: Change in Vision, Double Vision Thyroid: Negative: Palpitations, Weight Loss, Weight Gain Pulmonary: Negative: Cough, Sputum, Hemoptysis, Respiratory Distress, Shortness of Breath Cardiology: Negative: Normal, Chest Pain, Shortness of Breath, Palpitations, Swelling of Ankles, Peripheral Vascular Dis, Edema, Faintness, Syncope, Claudication, Paroxysmal Nocturnal Dyspnea, Orthopnea, Other Gastroenterology: Negative: Blood in Stools, Haematemesis, Melena Genital - Urinary: Negative: Dysuria, Hematuria Musculoskeletal: Negative: Joint Pain, Joint Stiffness Endocrinology: Negative: Obesity, Diabetes, Polydipsia, Polyuria Hematologic/Lymphatic: Negative: Use of Anticoagulant, Use of Antiplatelet Drugs Neurology: Negative: Change in Speech, Change in Walking, Hx of Stroke\\TIA, Hx Seizures Psychiatry: Negative: Unusual Anxiety, Suicidal Ideation Allergic/Immunologic: Negative: Hx HIV, Immunocompromise Review of Systems Statement: All other review of systems negative, unless stated above. Objective Vital Signs: Temp Pulse Resp BP Pulse Ox 98 F 64 20 126/48 98 12/22/19 11:15 05/12/19 11:15 05/12/19 11:15 05/12/19 11:15 05/12/19 07:15 Oxygen Devices in Use Now: None Appearance: nad, very pleasant Ears/Nose/Mouth/Throat: Clear Oropharnyx, Mucous Membranes Moist Neck: NL Appearance and Movements; NL JVP, Trachea Midline Respiratory: Symmetrical Chest Expansion and Respiratory Effort, - - faint rales bases Cardiovascular: RRR, - - 3-4/6 high pitched murmur systolic with soft s2 Abdominal: NL Sounds; No Tenderness; No Distention Extremities: No Edema Skin: No Rash or Ulcers Neurological: Alert and Oriented x 3 Laboratory Results: 05/12/19 05:43 05/12/19 05:43 INR (Anticoag Therapy) 1.04 (0.82-1.09) 05/11/19 06:16 APTT 22.2 seconds (26.0-38.0) L 05/09/19 17:28 Total Bilirubin 0.60 mg/dL (0.2-1.0) 05/09/19 17:28 Direct Bilirubin 0.10 mg/dL (0.03-0.18) 05/09/19 17:28 Indirect Bilirubin 0.5 mg/dL (0.3-1.0) 05/09/19 17:28 AST 22 U/L (13-39) 05/09/19 17:28 ALT 13 U/L (7-52) 05/09/19 17:28 Alkaline Phosphatase 55 U/L (34-104) 05/09/19 17:28 Total Protein 6.3 g/dL (6.4-8.9) L 05/09/19 17:28 Albumin 3.8 g/dL (3.2-5.2) 05/09/19 17:28 Globulin 2.5 g/dL (2-4) 05/09/19 17:28 Albumin/Globulin Ratio 1.5 (1-3) 05/09/19 17:28 05/11/19 02:45 Troponin I 0.01 Diagnostic Imaging: Echo 03/2009: Mild aortic stenosis, normal LVEF Transthoracic Echocardiogram Study Date: 05/12/2019 Summary: - Left ventricle: The cavity size is normal. Wall thickness is mildly increased. Systolic function is normal. The estimated ejection fraction is 65-70%. Wall motion is normal; there are no regional wall motion abnormalities. - Right ventricle: The cavity size is normal. Systolic function is normal. - Left atrium: The atrium is moderately dilated. - Aortic valve: The findings are consistent with severe stenosis. The peak systolic velocity is 4.8 m/sec. The mean systolic gradient is 60.0 mm Hg with a hemoglobin of 7 at time of study. - Pulmonary arteries: Systolic pressure is within the normal range. DEVANTE, VTI 0.94 Exam Date: 05/11/19 0438 CHEST AP OR PORT IMPRESSION: Chest x-ray findings are most consistent with a mild degree of pulmonary edema, perhaps slightly worse when compared to the 1918 chest x-ray. EKG Data: ekg 05/09/2019 nsr, normal ekg Assessment/Plan 1. Acute GI bleed with anemia - s/p pRBC and IVF - Heyde syndrome being considered 2. Mild volume overload - secondary to # 1 and # 3 3. Severe aortic stenosis - high normal LVEF - suspect gradients would be much lower with a normal hemoglobin. - Given patient has a normal LVEF and no symptoms prior to this acute episode, urgent AVR is not indicated. Would cautiously manage fluid balance as is being done and give PRN IV lasix (would consider another dose later today or tomorrow if bleeding stops). Metoprolol was held to allow BP room (ordered) for diuretics. If she were to require emergency surgery for her condition, would proceed without delay. Will arrange cardiology follow up as an outpatient. Thank you for allowing me to participate in the cardiovascular care of this patient. Please do not hesitate to contact me with questions or concerns.
[2019-05-12 14:42] LABS: Hematocrit 28 % (35-47); Hemoglobin 9.4 g/dL (12.0-16.0)
[2019-05-12] MEDS ORDERED: Furosemide IV* 10 MG/ML 2 ML VIAL (20 MG) IV ONE (15:42)
[2019-05-12 18:26] LABS: Hematocrit 28 % (35-47); Hemoglobin 9.7 g/dL (12.0-16.0)
[2019-05-12] MEDS: rOPINIRole TAB* 1 MG PO SCH (21:49)
[2019-05-12] MEDS: Ondansetron INJ* 2 MG/ML VIAL IV PRN (22:42)
[2019-05-13 00:28] LABS: Hematocrit 25 % (35-47); Hemoglobin 8.5 g/dL (12.0-16.0)
[2019-05-13] MEDS: Pantoprazole* 80 mg IN NS 80 MG/250 ML BAG IV SCH ×2 (01:45→07:23)
[2019-05-13 06:23] LABS: ABS Eosinophils 0.1 10^3/ul (0-0.6); ABS Lymphocytes 1.5 10^3/ul (1.0-4.8); ABS Monocytes 0.6 10^3/ul (0-0.8); ABS Neutrophils 7.9 10^3/ul (1.5-7.7); Eosinophil % 0.9 %; Hematocrit 24 % (35-47); Hemoglobin 8.2 g/dL (12.0-16.0); Lymphocyte % 14.4 %; Mean Corpuscular HGB Conc 35 g/dL (31-36); Mean Corpuscular Hemoglobin 31 pg (27-31); Mean Corpuscular Volume 88 fL (80-97); Mean Platelet Volume 7.4 fL (7.4-10.4); Platelet Count 221 10^3/uL (150-450); Red Blood Count 2.68 10^6 /uL (3.70-4.87); Red Cell Distribution Width 16 % (10-15); White Blood Count 10.1 10^3/uL (3.5-10.8)
[2019-05-13] MEDS: Ondansetron INJ* 2 MG/ML VIAL IV PRN (06:26)
[2019-05-13 06:43] LABS: BUN/Creatinine Ratio 17.1 (8-20); Calcium 7.9 mg/dL (8.6-10.3); EGFR African American 89.1 (>60); EGFR Non-African American 73.6 (>60); Magnesium 1.8 mg/dL (1.9-2.7); Phosphorus 3.8 mg/dL (2.5-5.0); Potassium 3.9 mmol/L (3.5-5.0)
[2019-05-13] MEDS ORDERED: Magnesium Sulfate 1 GM IV* 1 GM/100 ML BAG IV ONE (09:45)
--- NOTE | 2019-05-13 14:20 | PN ---
Progress Note - Progress Note Date of Service: 05/13/19 Note: GI fu 12-20 procedures noted, pt with dark red ooze in stool; otherwise no changes VS 98.7, 117/43, 75, 16 nad +bs, soft, nt/.nd neg bleeding scan BUN 13, hgb 8.2<----8.5, 9.7 anemia slow drift down, ?continued ooze from hemorrhagic gastritis or another source , such as small bowel; continue to monitor h/h and stools; if continues to drop , consider inpt Capsule Endo, ?Mon/, GI to follow Nicko Hobbs MD
[2019-05-13 14:30] LABS: Hematocrit 24 % (35-47); Hemoglobin 8.3 g/dL (12.0-16.0); Mean Corpuscular HGB Conc 34 g/dL (31-36); Mean Corpuscular Hemoglobin 30 pg (27-31); Mean Corpuscular Volume 89 fL (80-97); Platelet Count 246 10^3/uL (150-450); Red Blood Count 2.72 10^6 /uL (3.70-4.87); Red Cell Distribution Width 16 % (10-15); White Blood Count 10.4 10^3/uL (3.5-10.8)
--- NOTE | 2019-05-13 15:55 | PN ---
Subjective Date of Service: 05/13/19 Interval History: f/u Gi bleed, aortic stenosis still blood in stool negative nuclear bleed scan GI notes reviewed sitting up playing cards with boyfriend Bill no chest pain or dyspnea tele: NSr, pvc's Medications Active Medications: Acetaminophen (Tylenol Tab*) 650 mg PO Q6H PRN PRN Reason: .PAIN Last Admin: 05/12/19 22:52 Dose: 650 mg Pantoprazole Sodium (Protonix Iv Bag*) 80 mg in 250 mls @ 25 mls/hr IV Q10H [facility] Last Admin: 05/13/19 07:23 Dose: Not Given Ondansetron HCl (Zofran Inj*) 4 mg IV Q6H PRN PRN Reason: NAUSEA Last Admin: 05/13/19 06:26 Dose: 4 mg Prochlorperazine Edisylate (Compazine Inj*) 10 mg IV Q6H PRN PRN Reason: NAUSEA/VOMITING Ropinirole HCl (Requip Tab*) 2 mg PO BEDTIME [facility] Last Admin: 05/12/19 21:49 Dose: 2 mg Objective Vital Signs: Temp Pulse Resp BP Pulse Ox 98.7 F 75 16 117/43 92 05/13/19 11:15 05/13/19 11:15 05/13/19 11:15 05/13/19 11:15 05/13/19 11:15 Oxygen Devices in Use Now: None Appearance: nad, very pleasant Ears/Nose/Mouth/Throat: Clear Oropharnyx, Mucous Membranes Moist Neck: NL Appearance and Movements; NL JVP, Trachea Midline Respiratory: Symmetrical Chest Expansion and Respiratory Effort, Clear to Auscultation, - Cardiovascular: RRR, - - 4/6 high pitched murmur systolic with prominent s2 unsure if 2 components Abdominal: NL Sounds; No Tenderness; No Distention Extremities: No Edema Skin: No Rash or Ulcers Neurological: Alert and Oriented x 3 Laboratory Results: 05/13/19 14:22 05/13/19 05:52 INR (Anticoag Therapy) 1.04 (0.82-1.09) 05/11/19 06:16 APTT 22.2 seconds (26.0-38.0) L 05/09/19 17:28 Total Bilirubin 0.60 mg/dL (0.2-1.0) 05/09/19 17:28 Direct Bilirubin 0.10 mg/dL (0.03-0.18) 05/09/19 17:28 Indirect Bilirubin 0.5 mg/dL (0.3-1.0) 05/09/19 17:28 AST 22 U/L (13-39) 05/09/19 17:28 ALT 13 U/L (7-52) 05/09/19 17:28 Alkaline Phosphatase 55 U/L (34-104) 05/09/19 17:28 Total Protein 6.3 g/dL (6.4-8.9) L 05/09/19 17:28 Albumin 3.8 g/dL (3.2-5.2) 05/09/19 17:28 Globulin 2.5 g/dL (2-4) 05/09/19 17:28 Albumin/Globulin Ratio 1.5 (1-3) 05/09/19 17:28 05/11/19 02:45 Troponin I 0.01 Diagnostic Imaging: Echo 03/2009: Mild aortic stenosis, normal LVEF Transthoracic Echocardiogram Study Date: 05/12/2019 Summary: - Left ventricle: The cavity size is normal. Wall thickness is mildly increased. Systolic function is normal. The estimated ejection fraction is 65-70%. Wall motion is normal; there are no regional wall motion abnormalities. - Right ventricle: The cavity size is normal. Systolic function is normal. - Left atrium: The atrium is moderately dilated. - Aortic valve: The findings are consistent with severe stenosis. The peak systolic velocity is 4.8 m/sec. The mean systolic gradient is 60.0 mm Hg with a hemoglobin of 7 at time of study. - Pulmonary arteries: Systolic pressure is within the normal range. DEVANTE, VTI 0.94 Exam Date: 05/11/19 0438 CHEST AP OR PORT IMPRESSION: Chest x-ray findings are most consistent with a mild degree of pulmonary edema, perhaps slightly worse when compared to the 1918 chest x-ray. EKG Data: ekg 05/09/2019 nsr, normal ekg Assessment/Plan 1. Acute GI bleed with anemia - s/p pRBC and IVF - Heyde syndrome being considered 2. Severe aortic stenosis - high normal LVEF - suspect gradients would be much lower with a normal hemoglobin - asymptomatic prior to admission - No class 1 indication for AVR - Continue PRN IV lasix with blood transfusions - If patient were to require urgent/emergency GI surgery for her condition, would proceed without delay. - Will arrange cardiology follow up as an outpatient. - Will sign off, please reconsult as needed Thank you for allowing me to participate in the cardiovascular care of this patient. Please do not hesitate to contact me with questions or concerns.
--- NOTE | 2019-05-13 15:58 | PN ---
Subjective Date of Service: 05/13/19 Interval History: No acute events overnight. Still with maroon stools with clots. Patient denies SOB, feeling cold, pain, or palpitations. She states that the bloody stools scare her and she sometimes gets light-headed after seeing them, but otherwise feels well. Objective Active Medications: Acetaminophen (Tylenol Tab*) 650 mg PO Q6H PRN PRN Reason: .PAIN Last Admin: 05/12/19 22:52 Dose: 650 mg Pantoprazole Sodium (Protonix Tab*) 40 mg PO 0600 [facility] Ropinirole HCl (Requip Tab*) 2 mg PO BEDTIME [facility] Last Admin: 05/12/19 21:49 Dose: 2 mg Vital Signs - 8 hr 05/13/19 05/13/19 11:15 15:15 Temperature 98.7 F 98.1 F Pulse Rate 75 88 Respiratory 16 17 Rate Blood Pressure 117/43 137/59 (mmHg) O2 Sat by Pulse 92 95 Oximetry Oxygen Devices in Use Now: None Appearance: well appearing, in NAD, appears younger than stated age Eyes: No Scleral Icterus Ears/Nose/Mouth/Throat: Clear Oropharnyx, Mucous Membranes Moist Neck: NL Appearance and Movements; NL JVP, Trachea Midline Respiratory: Symmetrical Chest Expansion and Respiratory Effort, Clear to Auscultation Cardiovascular: RRR, - - systolic murmur Abdominal: NL Sounds; No Tenderness; No Distention, No Hepatosplenomegaly Extremities: No Edema Skin: No Rash or Ulcers Neurological: Alert and Oriented x 3 Result Diagrams: 05/13/19 14:22 05/13/19 05:52 Assess/Plan/Problems-Billing Assessment: 78W with HTN, , otherwise healthy and still working, presents with BRBPR, found with anemia requiring transfusions. - Patient Problems (1) Lower GI bleed Comment: Presenting with bloody diarrhea for the past 2-3 days before admission. s/p colonoscopy/EGD 05/10 with hemorrhagic gastritis, scant ooze. Colon was filled with old blood, unable to intubate Terminal Ileum. No fresh bleeding visualized. Scant diverticulosis on the left and unlikely to be the cause as per GI impression. - Nuc scan negative - s/p 4 u pRBC, cont to monitor Hgb - change PPI IV to PO - likely will need capsule study - pending GI input (2) Aortic stenosis Comment: Severe , although was asymptommatic prior to presentation and cardiology suspects gradient will improve with improved Hgb. - appreciate cardiology input - give furosemide prn blood transfusions (3) HTN (hypertension) Comment: - holding metop suc 25 in setting of low BP (4) DVT prophylaxis Comment: TEDs, SCDs, encourage walking (5) Full code status Comment: Jennyfer Almazan ( niece) is her HCP. Her family will bring in the forms
[2019-05-13] MEDS: Acetaminophen TAB* 325 MG PO PRN (20:22)
[2019-05-13] MEDS: rOPINIRole TAB* 1 MG PO SCH (20:22)
[2019-05-14] MEDS ORDERED: Pantoprazole TAB * 40 MG TAB ONE (04:00)
[2019-05-14 05:21] LABS: Hematocrit 21 % (35-47); Hemoglobin 6.8 g/dL (12.0-16.0); Mean Corpuscular HGB Conc 33 g/dL (31-36); Mean Corpuscular Hemoglobin 30 pg (27-31); Mean Corpuscular Volume 90 fL (80-97); Mean Platelet Volume 7.4 fL (7.4-10.4); Platelet Count 211 10^3/uL (150-450); Red Blood Count 2.27 10^6 /uL (3.70-4.87); Red Cell Distribution Width 16 % (10-15); White Blood Count 6.4 10^3/uL (3.5-10.8)
[2019-05-14] MEDS ORDERED: Pantoprazole TAB * 40 MG TAB PO SCH (06:00)
[2019-05-14] MEDS ORDERED: Calcium Carbonate CHEW TAB* 500 MG (TUMS) PO ONE (06:38)
[2019-05-14] MEDS ORDERED: Calcium Carbonate CHEW TAB* 500 MG (TUMS) ONE (06:40)
--- NOTE | 2019-05-14 10:13 | PN ---
Subjective Date of Service: 05/14/19 Interval History: No acute events overnight. Still with bloody bowel movements. Hgb again < 7. Will given 1 u pRBC, which will be her 5th this admission. Patient reports she thinks she has mild back pain before each bloody bowel movement. The BMs still make her nervous, but otherwise she has no complaints. Objective Active Medications: Acetaminophen (Tylenol Tab*) 650 mg PO Q6H PRN PRN Reason: .PAIN Last Admin: 05/13/19 20:22 Dose: 650 mg Pantoprazole Sodium (Protonix Tab*) 40 mg PO 0600 [facility] Last Admin: 05/14/19 04:31 Dose: 40 mg Ropinirole HCl (Requip Tab*) 2 mg PO BEDTIME [facility] Last Admin: 05/13/19 20:22 Dose: 2 mg Vital Signs - 8 hr 05/14/19 05/14/19 03:15 07:34 Temperature 98.0 F 98.3 F Pulse Rate 85 82 Respiratory 20 16 Rate Blood Pressure 120/50 102/52 (mmHg) O2 Sat by Pulse 96 94 Oximetry Oxygen Devices in Use Now: None Appearance: well apppearing, no acute distress Eyes: No Scleral Icterus Ears/Nose/Mouth/Throat: Clear Oropharnyx, Mucous Membranes Moist Neck: NL Appearance and Movements; NL JVP, Trachea Midline Respiratory: Symmetrical Chest Expansion and Respiratory Effort, Clear to Auscultation Cardiovascular: NL Sounds; No Murmurs; No JVD, RRR Abdominal: NL Sounds; No Tenderness; No Distention, No Hepatosplenomegaly Extremities: No Edema Skin: No Rash or Ulcers, - - pale Neurological: Alert and Oriented x 3 Result Diagrams: 05/14/19 04:58 05/13/19 05:52 Assess/Plan/Problems-Billing Assessment: 78W with HTN, , otherwise healthy and still working, presents with BRBPR, found with anemia requiring transfusions. - Patient Problems (1) Lower GI bleed Comment: Presenting with bloody diarrhea for the past 2-3 days before admission. s/p colonoscopy/EGD 05/10 with hemorrhagic gastritis, scant ooze. Colon was filled with old blood, unable to intubate Terminal Ileum. No fresh bleeding visualized. Scant diverticulosis on the left and unlikely to be the cause as per GI impression. - Nuc scan negative - s/p 5 u pRBC, cont to monitor Hgb - cont PO PPI - likely will need capsule study - pending GI input (2) Aortic stenosis Comment: Severe , although was asymptommatic prior to presentation and cardiology suspects gradient will improve with improved Hgb. - appreciate cardiology input - give furosemide prn blood transfusions (3) HTN (hypertension) Comment: - holding metop suc 25 in setting of low BP (4) DVT prophylaxis Comment: TEDs, SCDs, encourage walking (5) Full code status Comment: Jennyfer Almazan ( niece) is her HCP. Her family will bring in the forms
[2019-05-14 15:38] LABS: Hematocrit 25 % (35-47); Hemoglobin 8.7 g/dL (12.0-16.0); Mean Corpuscular HGB Conc 35 g/dL (31-36); Mean Corpuscular Hemoglobin 31 pg (27-31); Mean Corpuscular Volume 89 fL (80-97); Mean Platelet Volume 6.7 fL (7.4-10.4); Platelet Count 237 10^3/uL (150-450); Red Blood Count 2.79 10^6 /uL (3.70-4.87); Red Cell Distribution Width 16 % (10-15); White Blood Count 8.9 10^3/uL (3.5-10.8)
[2019-05-14] MEDS ORDERED: PEG 3000 GI LAVAGE* 1 GALLON PO ONE (17:23)
--- NOTE | 2019-05-14 20:58 | PN ---
Progress Note - Progress Note Date of Service: 05/14/19 Note: BRIEF GI NOTE Discussed with hospitalist on primary team, Dr Meade. Patient with drop in H/H today (6.8 from 8.3). One unit of pRBC given. Follow-up Hgb 8.7. This represents larger bump with one unit than would be expected, so possible that the 6.8 is spurious. Patient reportedly continues to pass dark blood and clots per rectum. Given concern for small bowel bleeding and drop in H/H, we will plan for inpatient capsule. Earliest that this VCE can be performed is likely mid-day on 05/15 due to availability of the equipment. Lillian Hannah MD Gastroenterology
[2019-05-14] MEDS: Acetaminophen TAB* 325 MG PO PRN (21:54)
[2019-05-14] MEDS: rOPINIRole TAB* 1 MG PO SCH (21:55)
[2019-05-15] MEDS ORDERED: Pantoprazole IV* 40 MG IV SCH (06:00)
[2019-05-15 06:13] LABS: Hematocrit 22 % (35-47); Hemoglobin 7.6 g/dL (12.0-16.0); Mean Corpuscular HGB Conc 35 g/dL (31-36); Mean Corpuscular Hemoglobin 31 pg (27-31); Mean Corpuscular Volume 89 fL (80-97); Mean Platelet Volume 7.1 fL (7.4-10.4); Platelet Count 206 10^3/uL (150-450); Red Blood Count 2.46 10^6 /uL (3.70-4.87); Red Cell Distribution Width 16 % (10-15); White Blood Count 7.5 10^3/uL (3.5-10.8)
--- NOTE | 2019-05-15 09:53 | PN ---
Subjective Date of Service: 05/15/19 Interval History: No acute events overnight. Prepped for capsule study today. Still passing clots and dark blood with bowel movements, not much brown stool. Patient has been on clear diet for days. Hgb 8.7 -> 7.6 from yesterday evening until this morning. She is in better spirits and denies pain, n/v, dyspnea, She is looking forward to eating solid foods. Objective Active Medications: Acetaminophen (Tylenol Tab*) 650 mg PO Q6H PRN PRN Reason: .PAIN Last Admin: 05/14/19 21:54 Dose: 650 mg Pantoprazole Sodium (Protonix Iv*) 40 mg IV DAILY [facility] Last Admin: 05/15/19 05:41 Dose: 40 mg Ropinirole HCl (Requip Tab*) 2 mg PO BEDTIME [facility] Last Admin: 05/14/19 21:55 Dose: Not Given Vital Signs - 8 hr 05/15/19 03:15 Temperature 98.1 F Pulse Rate 90 Respiratory 18 Rate Blood Pressure 110/65 (mmHg) O2 Sat by Pulse 97 Oximetry Oxygen Devices in Use Now: None Appearance: well appearing, opening presents with friend at bedside Eyes: No Scleral Icterus Ears/Nose/Mouth/Throat: Clear Oropharnyx, Mucous Membranes Moist Neck: NL Appearance and Movements; NL JVP, Trachea Midline Respiratory: Symmetrical Chest Expansion and Respiratory Effort, Clear to Auscultation Cardiovascular: NL Sounds; No Murmurs; No JVD, RRR Abdominal: NL Sounds; No Tenderness; No Distention, No Hepatosplenomegaly Extremities: No Edema Skin: No Rash or Ulcers Neurological: Alert and Oriented x 3 Result Diagrams: 05/15/19 14:53 05/13/19 05:52 Assess/Plan/Problems-Billing Assessment: 78W with HTN, , otherwise healthy and still working, presents with BRBPR, found with anemia requiring transfusions. - Patient Problems (1) Lower GI bleed Comment: Presenting with bloody diarrhea for the past 2-3 days before admission. s/p colonoscopy/EGD 05/10 with hemorrhagic gastritis, scant ooze. Colon was filled with old blood, unable to intubate Terminal Ileum. No fresh bleeding visualized. Scant diverticulosis on the left and unlikely to be the cause as per GI impression. - Nuc scan negative - s/p 5 u pRBC, cont to monitor Hgb - cont PO PPI - capsule study today (2) Aortic stenosis Comment: Severe , although was asymptommatic prior to presentation and cardiology suspects gradient will improve with improved Hgb. - appreciate cardiology input - give furosemide prn blood transfusions (3) HTN (hypertension) Comment: - holding metop suc 25 in setting of low BP (4) DVT prophylaxis Comment: TEDs, SCDs, encourage walking (5) Full code status Comment: Jennyfer Almazan ( niece) is her HCP. Her family will bring in the forms
[2019-05-15 15:22] LABS: Hematocrit 25 % (35-47); Hemoglobin 8.4 g/dL (12.0-16.0); Mean Corpuscular HGB Conc 34 g/dL (31-36); Mean Corpuscular Hemoglobin 31 pg (27-31); Mean Corpuscular Volume 90 fL (80-97); Mean Platelet Volume 7.2 fL (7.4-10.4); Platelet Count 268 10^3/uL (150-450); Red Blood Count 2.74 10^6 /uL (3.70-4.87); Red Cell Distribution Width 17 % (10-15); White Blood Count 8.6 10^3/uL (3.5-10.8)
[2019-05-15] MEDS: Acetaminophen TAB* 325 MG PO PRN (18:04)
[2019-05-15] MEDS: rOPINIRole TAB* 1 MG PO SCH (21:52)
[2019-05-16] MEDS ORDERED: Calcium Carbonate CHEW TAB* 500 MG (TUMS) PO PRN (01:56)
[2019-05-16 05:41] LABS: Hematocrit 21 % (35-47); Hemoglobin 7.1 g/dL (12.0-16.0); Mean Corpuscular HGB Conc 34 g/dL (31-36); Mean Corpuscular Hemoglobin 31 pg (27-31); Mean Corpuscular Volume 90 fL (80-97); Mean Platelet Volume 6.6 fL (7.4-10.4); Platelet Count 199 10^3/uL (150-450); Red Blood Count 2.32 10^6 /uL (3.70-4.87); Red Cell Distribution Width 16 % (10-15)
[2019-05-16 05:56] LABS: BUN/Creatinine Ratio 15.5 (8-20); Calcium 8.2 mg/dL (8.6-10.3); EGFR African American 79.3 (>60); EGFR Non-African American 65.6 (>60); Magnesium 1.9 mg/dL (1.9-2.7); Potassium 3.8 mmol/L (3.5-5.0)
[2019-05-16] MEDS ORDERED: Pantoprazole TAB * 40 MG TAB PO SCH (09:00)
--- NOTE | 2019-05-16 09:54 | PN ---
Subjective Date of Service: 05/16/19 Interval History: No acute events overnight. Patient passed capsule yesterday and now pending read by GI. GI recommending to keep NPO while pending capsule read. Hgb decreased 8.4 -> 7.1 overnight. Objective Active Medications: Acetaminophen (Tylenol Tab*) 650 mg PO Q6H PRN PRN Reason: .PAIN Last Admin: 05/15/19 18:04 Dose: 650 mg Calcium Carbonate (Tums*) 500 mg PO Q4H PRN PRN Reason: DYSPEPSIA Last Admin: 05/16/19 02:03 Dose: 500 mg Pantoprazole Sodium (Protonix Tab*) 40 mg PO DAILY [facility] Last Admin: 05/16/19 09:17 Dose: 40 mg Ropinirole HCl (Requip Tab*) 2 mg PO BEDTIME [facility] Last Admin: 05/15/19 21:52 Dose: 2 mg Vital Signs - 8 hr 05/16/19 03:07 Temperature 97.8 F Pulse Rate 91 Respiratory 20 Rate Blood Pressure 116/54 (mmHg) O2 Sat by Pulse 97 Oximetry Oxygen Devices in Use Now: None Appearance: well appearing woman in nAD Eyes: No Scleral Icterus, - - conjuntival pallor Ears/Nose/Mouth/Throat: Clear Oropharnyx, Mucous Membranes Moist Neck: NL Appearance and Movements; NL JVP, Trachea Midline Respiratory: Symmetrical Chest Expansion and Respiratory Effort, Clear to Auscultation Cardiovascular: NL Sounds; No Murmurs; No JVD, RRR Abdominal: NL Sounds; No Tenderness; No Distention, No Hepatosplenomegaly Extremities: No Edema Skin: No Rash or Ulcers Neurological: Alert and Oriented x 3, NL Gait Result Diagrams: 05/16/19 05:27 05/16/19 05:07 Assess/Plan/Problems-Billing Assessment: 78W with HTN, , otherwise healthy and still working, presents with BRBPR, found with anemia requiring transfusions. - Patient Problems (1) Lower GI bleed Comment: Presenting with bloody diarrhea for the past 2-3 days before admission. s/p colonoscopy/EGD 05/10 with hemorrhagic gastritis, scant ooze. Colon was filled with old blood, unable to intubate Terminal Ileum. No fresh bleeding visualized. Scant diverticulosis on the left and unlikely to be the cause as per GI impression. Nuc scan negative. - s/p 5 u pRBC, cont to monitor Hgb - cont PO PPI - capsule study pending (2) Aortic stenosis Comment: Severe , although was asymptommatic prior to presentation and cardiology suspects gradient will improve with improved Hgb. - appreciate cardiology input - give furosemide prn blood transfusions (3) HTN (hypertension) Comment: - holding metop suc 25 in setting of low BP (4) DVT prophylaxis Comment: TEDs, SCDs, encourage walking (5) Full code status Comment: Jennyfer Almazan ( niece) is her HCP. Her family will bring in the forms
[2019-05-16] MEDS: Acetaminophen TAB* 325 MG PO PRN ×2 (11:11→17:39)
--- NOTE | 2019-05-16 13:33 | PN ---
Progress Note - Progress Note Date of Service: 05/16/19 Note: GI Follow up Note: Patient seen and examined. Completed capsule study. Still with maroon stool. No pain. VS: 129/54, P-087, R-20, 100% RA, 97.2 Gen: alert and oriented x3, nad HEENT: AT/nc,perrla, eomi, conjunctiva pale CVS RRR s1s2 harsh 3/6 ULISSES Resp: cta b/l Abd: soft, nt,nd bs+ Ext: Mild edema Hgb 7.1 Reviewed capsule: No fresh or old blood in stomach, jejenum. At very distal TI seconds from cecum fresh bleed visualized. Views obscured by bleeding but appears to be distal TI in origin. Impression Acute blood loss anemia Recommendation: Suspect distal TI source of bleeding. Would benefit from retrograde enteroscopy. Discussed with patient and significant other at bedside. All questions answered. Will plan transfer to tertiary care center. Discussed with Dr. Meade who will arrange. Yousif Li DO 05/16/19 9712
--- NOTE | 2019-05-16 16:31 | TRS ---
CC: Dr. Mickey Manzano; Dr. Li DATE OF ADMISSION: 05/09/2019. DATE OF TRANSFER: 05/16/2019. PRIMARY DIAGNOSIS: 1. Ileal bleed. SECONDARY DIAGNOSES: 1. Gastritis. 2. Aortic stenosis 3. Hypertension. 4. Restless leg syndrome. CONSULTS: Dr. Li of GI. PROCEDURES: EGD and colonoscopy on May 10; capsule endoscopy on May 15. TRANSFER MEDICATIONS: 1. Pantoprazole 40 mg p.o. once a day. 2. Ropinirole 2 mg at bedtime. 3. Calcium Carbonate chew tabs 500 mg every 6 hours as needed for indigestion. HISTORY OF PRESENT ILLNESS: Ms. Wolff is a pleasant 78-year-old woman with high blood pressure who is presenting with bloody diarrhea for two days. She reports having approximately 8 to 12 episodes daily, occasionally pure blood, sometimes very dark brown. She also has been passing blood clots. She denies a history of similar symptoms. She also denies associated abdominal pain, nausea, or vomiting. The patient reports her last colonoscopy was likely over 10 years ago and does not remember having any abnormalities. She denies a history of hemorrhoids or constipation. She has no family history of colon cancer. Her brother from stomach cancer at age 41. The patient has not taken aspirin for the last year. She did take Naproxen for back pain on the morning of presentation, but does not take that often. 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 She was at work one day prior to presentation which is why she delayed coming to the hospital. HOSPITAL COURSE: In the emergency room, the patient underwent a CT of her abdomen and pelvis which showed a fluid filled colon suggestive of diarrheal disease, but was without wall thickening or diverticulitis. GI was called, who performed an EGD and colonoscopy the next day. The EGD showed gastritis with few hemorrhagic foci noted with scant oozing. These were cauterized with BICAP. Biopsies were taken at multiple areas. The colonoscopy show colon filled with blood. The procedure itself was difficult given history of abdominal adhesions, taking over one hour to transverse beyond the hepatic flexure and an additional 15 to 20 minutes to get to the cecum. The terminal ilium was not reached. Extensive lavage was done throughout the colon and no fresh bleeding was noted. It was recommended that the patient undergo continuous hemoglobin monitoring. Throughout admission she did receive five units of packed red blood cells. She was initiated on a PPI given her hemorrhagic gastritis. As she continued to have her hemoglobin decrease, she underwent a nuclear medicine tagged red blood cell scan which was performed on May 12 and both the initial read and delayed read were without etiology for the GI bleed. Therefore, on the , the patient underwent capsule endoscopy which showed fresh bleed at very distal terminal ileum seconds from the cecum. The views were obscured by the bleeding , but appeared to be distal terminal ileum in origin. Given the site of bleeding, GI doctor here recommended transfer to a medical center that can perform retrograde balloon enteroscopy. [facility] in [place], [facility] in [place], [facility] in [place], and [facility] in [place] were all contacted and could not accept the patient as no GI doctor was there at that time who could perform the procedure; however, [facility] in [place], [place] did have a match marker who could perform this procedure and the patient was accepted there on May 16. Of note, patient had systolic murmur and occasionally labile blood pressure, so TTE was performed and showed aortic stenosis. Cardiology consult here thought gradient was overestimated in the setting of anemia, and only recommended to administer gentle diuresis if requiring more blood transfusions. PERTINENT STUDIES AND LABS: 1. CBC with hemoglobin 7.1 on the morning of transfer with normal WBC and platelets. 2. INR 1. 3. BMP unremarkable. 4. Troponin negative. 5. Chest x-ray: Findings consistent with COPD. No evidence for acute disease. Lungs are hyperinflated. 6. Abdomen and pelvis CT with fluid filled colon suggestive of diarrheal disease. No wall thickening or diverticulitis. 7. Nuclear Medicine GI bleed scan: Images demonstrate blood pool activity and activity within the liver, spleen, kidneys, and bladder. Activity is noted within the stomach and most consistent with free pertechnetate. No activity is noted to accumulate within the small or large bowel. 8. TTE: LV cavity size is normal. Wall thickness is mildly increased. Estimated EF 65-70%. Wall motion is normal. RV cavity size is normal. Systolic function is normal. LA moderately dilated. AV consistent with severe stenosis. The peak systolic velocity is 4.8 m/sec. The mean systolic gradient is 60.0 mm Hg with a hemoglobin of 7 at time of study. PASP is within the normal range. DISCHARGE PLAN: The patient will be transferred to [facility]. She has been accepted by Dr. Sebastian Coon of the Hospitalist Service. Our GI specialist talked with a GI doctor there and they have capabilities of performing retrograde balloon enteroscopy. She may continue on her medications as above, which only include two oral medications. She is not on IV drips or telemetry monitoring. She is hemodynamically stable and ready for transfer. DIET: Clear liquid diet. ACTIVITY: As tolerated. DISPOSITION: To [facility] CONDITION ON TRANSFER: Stable. TIME SPENT: Approximately 60 minutes were spent on the discharge of this patient, more than half of which was spent with care coordination at bedside for interview and exam. [id number]/[facility] #: [id number] RANDY
[2019-05-16 19:54] VITALS: BP 150/60
--- NOTE | 2019-05-16 22:01 | PRO ---
CC: Dr. Manzano; Dr. Ohara* CAPSULE ENDOSCOPY REPORT: DATE OF PROCEDURE: 05/16/19 - Inpatient, room 444-02 INDICATION FOR PROCEDURE: Anemia due to chronic blood loss. PROCEDURE PERFORMED: Complete capsule endoscopy. DESCRIPTION OF PROCEDURE: After the capsule endoscopy procedure including the risks, benefits, and alternatives with the risks not limited to endoscopic capsule retention requiring endoscopic removal and/or surgery. Written informed consent was obtained. The patient was hospitalized and swallowed the capsule. The recording equipment was placed on her and the recorder was returned and the findings were as follows: First gastric image: 00:02:31. First duodenal image: 01:15:44. Gastric transit time 1 hour and 13 minutes. First cecal image: 06:28:16. Small bowel transit time: 5 hours and 12 minutes. Preparation is good with small amounts of retained debris and bubbles, which can limit the sensitivity of the study. The study is complete. The cecum and colon are visualized. Gastric images are limited. No fresh or old blood is seen. Small bowel visualized well. Villi are normal in height without endoscopic features of celiac disease. No masses were seen. No AVMs were seen. Evidence of fresh blood was visualized at 06:25:10. This appears to coordinate. This area is likely the distal ileum/ileocecal valve. The remainder of the images are obscured by fresh bleeding. No evidence of Crohn's is visualized on the small bowel portion. IMPRESSION: 1. Successful capsule endoscopy. 2. Bleeding source likely at the very, very distal terminal ileum/ileocecal valve. RECOMMENDATIONS: Recommend transfer for retrograde enteroscopy. We will discuss with hospitalist service. [id number]/[facility] #: [id number] RANDY
== END 2019-05-16 19:48 | disposition short-term general hospital (02) | DRG 378 ==
LOC: ED 16:25 → MEDTELE 22:47
PROVIDERS: ADMIT Student in an Organized Health Care Education/Training Program; ATTEND Internal Medicine
PROC: 30233N1 Transfusion of Nonautologous Red Blood Cells into Peripheral Vein, Percutaneous Approach (ICD-10-PCS; 2019-05-09)
PROC: 0W3P8ZZ Control Bleeding in Gastrointestinal Tract, Via Natural or Artificial Opening Endoscopic (ICD-10-PCS; principal; 2019-05-14)
PROC: 0DB68ZX Excision of Stomach, Via Natural or Artificial Opening Endoscopic, Diagnostic (ICD-10-PCS; 2019-05-14)
PROC: 0DJD8ZZ Inspection of Lower Intestinal Tract, Via Natural or Artificial Opening Endoscopic (ICD-10-PCS; 2019-05-14)
PROC: 0DJ07ZZ Inspection of Upper Intestinal Tract, Via Natural or Artificial Opening (ICD-10-PCS; 2019-05-16)
DX: K92.1 Melena (principal); D62 Acute posthemorrhagic anemia; K29.71 Gastritis, unspecified, with bleeding; B96.81 Helicobacter pylori [H. pylori] as the cause of diseases classified elsewhere; I10 Essential (primary) hypertension; F41.9 Anxiety disorder, unspecified; E78.5 Hyperlipidemia, unspecified; E87.70 Fluid overload, unspecified; I35.0 Nonrheumatic aortic (valve) stenosis; E78.00 Pure hypercholesterolemia, unspecified; G25.81 Restless legs syndrome; Z90.710 Acquired absence of both cervix and uterus; Z90.49 Acquired absence of other specified parts of digestive tract; Z91.041 Radiographic dye allergy status; Z23 Encounter for immunization
CPT/HCPCS: 36415; 71045; 71046; 74177; 78278; 80048; 80076; 83605; 83690; 83735; 84100; 84484; 85014; 85018; 85025; 85027; 85610; 85730; 86850; 86900; 86901; 86922; 88305; 88342; 90732; 93005; 93306; 96361; 96374; 96375; 99156; 99157; 99284; A9270-GY; A9512; A9538; J1200; J1940; J2250; J2405; J3010; J3475; P9040; Q9967

== ENCOUNTER 2019-06-08 04:58 | Observation (INO) | payer MEDICARE, MEDICAID ==
--- NOTE | 2019-06-08 05:17 | ED ---
HPI Cardiac - HPI Summary HPI Summary: 78 y/o female presented to [facility] complaining of CP rated 9/10 present since 0 last night. Pt endorses being nauseous yesterday morning and denies diaphoresis. She was seen 8 days ago in [place], [place] for rectal blood clots. She is allergic to penicillin and contrast dye. Her Hgb on 05/10/19 was 7.1. She has been seen by Dr. Ohara for severe aortic stenosis. - History of Current Complaint Stated Complaint: CHEST PAIN PER PT Hx Obtained From: Patient Onset/Duration: Started Hours Ago, Still Present Time of Onset: 22:30 Current Severity: Severe Pain Intensity: 9 Pain Scale Used: 0-10 Numeric Aggravating Factor(s): Nothing Alleviating Factor(s): Nothing Associated Signs and Symptoms: Positive: Chest Pain, Nausea. Negative: Diaphoresis - Additional Pertinent History Primary Care Physician: [id number] - Allergy/Home Medications Allergies/Adverse Reactions: Allergies Allergy/AdvReac Type Severity Reaction Status Date / Time Iodinated Contrast Media Allergy Shakes Verified 05/09/19 18:42 [Iodinated Contrast- Oral and IV Dye] PMH/Surg Hx/FS Hx/Imm Hx Endocrine/Hematology History: Denies: Hx Diabetes, Hx Thyroid Disease Cardiovascular History: Reports: Hx Angina, Hx Hypercholesterolemia, Other Cardiovascular Problems/Disorders - HEART MURMUR Denies: Hx Hypertension, Hx Peripheral Vascular Disease GI History: Reports: Hx Gastrointestinal Bleed Musculoskeletal History: Denies: Hx Arthritis, Hx Osteoporosis Sensory History: Reports: Hx Hearing Aid Denies: Hx Cataracts, Hx Contacts or Glasses, Hx Glaucoma, Hx Legally Blind, Hx Deafness Opthamlomology History: Denies: Hx Cataracts, Hx Contacts or Glasses, Hx Glaucoma, Hx Legally Blind Neurological History: Denies: Hx Headaches, Hx Seizures, Hx Transient Ischemic Attacks (TIA) Psychiatric History: Denies: Hx Anxiety, Hx Depression - Surgical History Surgery Procedure, Year, and Place: appendectomy, cholecystectomy, hysterectomy , adenoidectomy, tonsilectomy - Family History Known Family History: Positive: Other - cancer Negative: Diabetes Family History: Sister with breast CA. Brother with stomach CA. - Social History Alcohol Use: Occasionally Substance Use Type: Reports: None Hx Tobacco Use: Yes Smoking Status (MU): Never Smoked Tobacco - Additional Comments History Additional Comments: PMHx: Irregular heartbeat RLS HTN SVT HLD DDD Anxiety Severe aortic stenosis PSHx: Appendectomy FHx: Cancer in brother who at 41 SHx: Quit smoking in 1996 Occasional alcohol use No substance use Review of Systems Negative: Skin Diaphoresis Positive: Chest Pain Positive: Nausea All Other Systems Reviewed And Are Negative: Yes Physical Exam - Summary Physical Exam Summary: General: Elderly (FEMALE). Moderately anxious appearing. HEENT: Normocephalic, Atraumatic. Eyes: Conjuctiva normal, PERRL. Oropharynx: Clear, mucous membranes moist, (-) exudates. Neck: Soft, FROM, (-) lymphadenopathy, (-) thyromegaly, (-) JVD. Cardiovascular: Normal sinus rhythm, (+) III/ murmur. Lungs: Clear to auscultation bilaterally (-) wheezes, (-) rales, (-) rhonchi. Abdomen: Soft, non-tender, non-distended, (-) organomegaly, normal bowel sounds. Back: (-) CVA tenderness Extremities: No edema. Skin: Warm, dry, (-) rash. Neuro: Alert and oriented x3, no focal deficits. Psychiatric: Tearful, anxious. Triage Information Reviewed: Yes Vital Signs Reviewed: Yes Procedures - Sedation Patient Received Moderate/Deep Sedation with Procedure: No Diagnostics - Laboratory Result Diagrams: 06/08/19 05:09 06/08/19 05:09 Lab Statement: Any lab studies that have been ordered have been reviewed, and results considered in the medical decision making process. - Radiology cxr Radiology Interpretation Completed By: ED Physician Summary of Radiographic Findings: No infiltrate. No pleural effusion. This x- ray was reviewed and interpreted by Dr. Gaona pending official read. - EKG 0503 Cardiac Rate: NL EKG Rhythm: Sinus Rhythm Summary of EKG Findings: EKG at 0503 reveals normal sinus rhythm with rate of 88 BPM, no acute changes, no ischemic changes. No STEMI. This EKG was reviewed and interpreted by Dr. Gaona. Disposition - Course Course Of Treatment: 78 year old female presents wiht chest pain since ten pm. mulitple medical problems including recent gi bleed and severe aortic stenosis. initial troponin negative. Pt is signed out to Dr. Martinez at 0700 shift change pending repeat troponin. - Diagnoses Provider Diagnoses: Chest pain, Aortic stenosis Discharge ED - Sign-Out/Discharge Documenting (check all that apply): Sign-Out Patient Signing out patient TO: Saeid Martinez - Pt is signed out to Dr. Martinez at 0700 shift change pending repeat troponin. Receiving patient FROM: Ana Cristina Gaona - Discharge Plan Condition: Stable Disposition: ADMITTED TO [facility] - Billing Disposition and Condition Condition: STABLE Disposition: Admitted to [facility] - Attestation Statements Document Initiated by Scribe: Yes Documenting Scribe: Roland Pena Provider For Whom Hennaibe is Documenting (Include Credential): Ana Cristina Gaona MD Scribe Attestation: Roland James, scribed for Ana Cristina Gaona MD on 06/08/19 at 1947. Scribe Documentation Reviewed: Yes Provider Attestation: The documentation as recorded by the Roland garcia accurately reflects the service I personally performed and the decisions made by , Ana Cristina Gaona MD Status of Scribe Document: Viewed
[2019-06-08 05:19] LABS: ABS Basophils 0.1 10^3/ul (0-0.2); ABS Eosinophils 0.2 10^3/ul (0-0.6); ABS Lymphocytes 1.6 10^3/ul (1.0-4.8); ABS Monocytes 0.4 10^3/ul (0-0.8); ABS Neutrophils 4.9 10^3/ul (1.5-7.7); Eosinophil % 3.4 %; Hematocrit 27 % (35-47); Lymphocyte % 21.5 %; Mean Corpuscular HGB Conc 33 g/dL (31-36); Mean Corpuscular Hemoglobin 28 pg (27-31); Mean Corpuscular Volume 85 fL (80-97); Mean Platelet Volume 6.5 fL (7.4-10.4); Nucleated Red Blood Cells % 0.1; Platelet Count 306 10^3/uL (150-450); Red Blood Count 3.18 10^6 /uL (3.70-4.87); Red Cell Distribution Width 20 % (10-15); White Blood Count 7.3 10^3/uL (3.5-10.8)
[2019-06-08 05:25] LABS: INR 0.94 (0.82-1.09)
[2019-06-08 05:38] LABS: Albumin 3.9 g/dL (3.2-5.2); Albumin/Globulin Ratio 1.3 (1-3); BUN/Creatinine Ratio 15.8 (8-20); Calcium 8.8 mg/dL (8.6-10.3); EGFR African American 52.6 (>60); EGFR Non-African American 43.4 (>60); Globulin 2.9 g/dL (2-4); Potassium 3.6 mmol/L (3.5-5.0); Total Bilirubin 0.3 mg/dL (0.2-1.0); Total Protein 6.8 g/dL (6.4-8.9)
[2019-06-08 05:40] LABS: Troponin I 0.02 ng/mL (<0.03)
--- OUTSIDE RECORDS SUMMARY | 2019-06-08 06:08 | XMS REPORT | Summary of Care ---
:1940 Author Organization [facility] Address [address] [place] [address] Care Team Providers Name Role Phone Mario Hernandez MD Unavailable Unavailable Shanika Pineda RN [facility] Traffic Control Technician Unavailable Polly Talavera Primary Care Provider Reason for Referral MRI/CAT/PET Scan (Routine) Status Reason Specialty Diagnoses / Referred By Referred To Procedures Contact Contact Pending Review Diagnoses Loose body of left hip Reinier Jarrell, Procedures MR LOWER EXTREMITY JOINT WO CONTRAST LEFT [address] [place] [address] Reason for Visit Reason Comments Follow Up left hip pain xrays in epic Encounter Details Date Type Department Care Team Description 06/04/2019 Office Visit [facility] - Reinier Jarrell MD Loose body of left [address] hip (Primary Dx) [address] [place] [address] [phone] Allergies Active Allergy Reactions Severity Noted Date Comments Ct Dye Dermatologic Reaction 11/16/2009 Penicillins Other 06/09/2010 documented as of this encounter (statuses as of 06/04/2019) Medications Medication Sig Dispensed Refills Start Date End Date Status Multiple Take 1 Tab by mouth 0 Active Vitamins-Minerals DAILY. (ONE DAILY WOMENS 50+) Oral Tab Nystatin 581852 0.0001 g by Apply 60 g 4 05/09/2018 Active UNIT/GM Apply externally route externally Powder TWICE DAILY. metoprolol succinate Take 1 Tab by mouth 90 Tab 3 09/24/2018 Active (TOPROL XL) 25 MG DAILY. Oral TABLET SR 24 HRIndications: Essential hypertension ropinirole (REQUIP) 2 Take 1 Tab by mouth 30 Tab 1 04/24/2019 Active MG Oral Tab EVERY BEDTIME. Additional information Patient taking differently: 40 mg Oral QHS, Reported on 06/04/2019 2:22 PM Omeprazole 40 MG Oral CAPSULE 0 05/20/2019 Active DELAYED RELEASE cetirizine (ZYRTEC) 10 MG Oral Take 1 Tab by mouth 30 Tab 1 05/27/2019 Active Tab DAILY. diphenhydrAMINE (BENADRYL Take 25 mg by mouth 60 Tab 1 05/27/2019 Active ALLERGY) 25 MG Oral Tab EVERY FOUR HOURS NEEDED (pruritis). ferrous sulfate 325 (65 Fe) MG Take 325 mg by mouth 0 Active Oral Tab DAILY. pantoprazole (PROTONIX) 40 MG Take 1 Tab by mouth 30 Tab 1 06/03/2019 Active Oral Tab EC DAILY. Acetaminophen (TYLENOL) 325 MG Take by mouth. 0 Active Oral Cap documented as of this encounter (statuses as of 06/04/2019) Active Problems Problem Noted Date Restless leg syndrome 06/28/2018 Hearing loss of right ear 02/10/2015 Chronic insomnia 02/10/2015 Osteoporosis 11/02/2012 Overview: FRAX 4.9/17% based on DEXA 07/02 H/O: hysterectomy 07/09/2010 Overview: Age 21 Essential hypertension SVT (supraventricular tachycardia) Overview: briefly on metoprol by prior provider for "angina" symptoms Mixed hyperlipidemia Overview: LDL 161, HDL 88 documented as of this encounter (statuses as of 06/04/2019) Resolved Problems Problem Noted Date Resolved Date Shoulder pain, right 04/02/2014 02/10/2015 Anxiety 02/10/2015 documented as of this encounter (statuses as of 06/04/2019) Immunizations Name Administration Dates Next Due Influenza [...] Sign Reading Time Taken Comments Blood Pressure 125/82 06/04/2019 2:25 PM EST Pulse - - Temperature - - Respiratory Rate - - Oxygen Saturation - - Inhaled Oxygen Concentration - - Weight 67.1 kg (148 lb) 06/04/2019 2:19 PM EST Height 157.5 cm (5' 2") 06/04/2019 2:19 PM EST Body Mass Index 27.07 06/04/2019 2:19 PM EST documented in this encounter Progress Notes Reinier Jarrell MD - 06/04/2019 2:30 PM EST Name: Estelle Wolff : 1940 Date of Service: 06/04/2019 Referring Provider: Peri Morgan Primary Care Provider: Polly Talavera Chief Complaint Patient presents with Follow Up left hip pain xrays in epic History of Present Illness: Estelle Wolff is a 78-y.o. female complaining of left hip discomfort for approximately 6 months. Patient states that she has no history of antecedent trauma. Patient states that she has discomfort at the end of the day but not during her exercises. Past Medical History: Diagnosis Date Advanced directives, [...] Laterality Date APPENDECTOMY CHOLECYSTECTOMY HYSTERECTOMY, ABDOMINAL tumurs UT REMOVE TONSILS/ADENOIDS,12+ Y/O UT TYMPANOPLASTY TONSILLECTOMY Current Outpatient Medications Medication Sig Acetaminophen (TYLENOL) 325 MG Oral Cap Take by mouth. cetirizine (ZYRTEC) 10 MG Oral Tab Take 1 Tab by mouth DAILY. diphenhydrAMINE (BENADRYL ALLERGY) 25 MG Oral Tab Take 25 mg by mouth EVERY FOUR HOURS NEEDED (pruritis). ferrous sulfate 325 (65 Fe) MG Oral Tab Take 325 mg by mouth DAILY. metoprolol succinate (TOPROL XL) 25 MG Oral TABLET SR 24 HR Take 1 Tab by mouth DAILY. Multiple Vitamins-Minerals (ONE DAILY WOMENS 50+) Oral Tab Take 1 Tab by mouth DAILY. Nystatin [id number] UNIT/GM Apply externally Powder 0.0001 g by Apply externally route TWICE DAILY. Omeprazole 40 MG Oral CAPSULE DELAYED RELEASE pantoprazole (PROTONIX) 40 MG Oral Tab EC Take 1 Tab by mouth DAILY. ropinirole (REQUIP) 2 MG Oral Tab Take 1 Tab by mouth EVERY BEDTIME. ( Patient taking differently: Take 40 mg by mouth EVERY BEDTIME.) No current facility-administered medications for this visit. 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 Nephew next door. Family History Problem Relation Age of Onset Alcohol/Drug Father ETOH Breast Cancer Sister Cancer Sister brain tumor Stroke Sister Cancer Brother stomach ca No Known Problems Brother Alcohol/Drug Sister drug OD No Known Problems Sister Physical Examination: BP 125/82 | Ht 5' 2" (1.575 m) | Wt 148 lb (67.1 kg) | BMI 27.07 kg/m Well-developed well-nourished female in minimal discomfort at rest. Patient was examined in the supine position. Patient has full extension of her left hip. Patient has flexion to 95 degrees after which she has mild discomfort. Patient is neurovascularly intact. Patient walks with a minimally antalgic gait. Patient has no tenderness on internal rotation of her left hip. Internal rotation of left hip is to 25 degrees. External rotation is to 30 degrees. There is no pain on external rotation of the patient's left hip. Patient has no discomfort on palpation of her left greater trochanter. X-rays: Reveal mild inferomedial degenerative changes of the left hip./Femoral acetabular joint. There are small ossific bodies noted in the soft tissue adjacent to the femoral acetabular joint Impression: DJD left hip Plan: We will order MRI of left hip to rule out AVN. Follow-up after MRI completed. All questions answered. There are no Patient Instructions on file for this visit. Author: Reinier Jarrell MD 06/04/2019 14:31 documented in this encounter Plan of Treatment Date Type Specialty Care Team Description 06/17/2019 Ancillary Procedure Radiology 06/21/2019 Office Visit Orthopedics Peri Morgan, RPA-C [address] [place] [place] [address] [phone] 07/03/2019 Lab Internal Medicine 07/10/2019 Office Visit Family Practice Polly Talavera MD [address] [place] [address] [phone] 07/10/2019 Ancillary Procedure Radiology Name Type Priority Associated Diagnoses Order Schedule MR LOWER EXTREMITY Imaging Routine Loose body of left hip Expected: 2019, JOINT WO CONTRAST LEFT Expires: 06/03/2020 Health Maintenance Due Date Last Done Comments MEDICARE ANNUAL WELLNESS 03/17/2018 03/17/2017, 03/16/2016, VISIT 03/16/2016, Additional history exists OSTEOPOROSIS SCREENING 01/20/2019 01/20/2009 DEPRESSION SCREENING 02/07/2020 02/06/2019, 02/06/2019 ZOSTER IMMUNIZATION SERIES 04/24/2020 02/10/2015 Postponed from (2 of 3) 04/07/2015 (Vaccine not available) FALL RISK ASSESSMENT 06/03/2020 06/03/2019, 06/03/2019 DTaP/Tdap/Td Vaccines (2 - 11/24/2020 11/24/2010 Tdap) [...] Type Problems Progress Blood Pressure Blood Essential 125/82 No [place], < 140/90 Pressure hypertension (06/04/2019 Mickey Monroe, 2:25 PM EST) Note: Hypertension Care Plan Based [...] Educational Resources: National Heart, Lung, & Blood [place] http://nhlbi.nih.gov/hbp/index.html The DASH Diet Eating Plan http://www.nhlbi.nih.gov/health/health-topics/ topics/dash/ Academy of Nutrition & DIetetics http://eatright.org National Smoking Cessation Site http://smokefree.gov Blood Pressure < 150/90 Blood Pressure 125/82 (06/04/2019 2:25 No Reinier Cárdenas MD PM EST) Note: [...] Depression screen Depression 0 (02/06/2019 12:43 PM No Mickey Manzano, (PHQ-9) total score < 5 EDT) Note: [...] filedocumented in this encounter Visit Diagnoses Diagnosis Loose body of left hip Loose body in pelvic joint documented in this encounter Insurance Payer Benefit Plan / Subscriber ID Effective Dates Phone Address Type Group EXCELLUS MEDICARE EXCELLUS xxxxxxxxxxxx Effective for Miira MEDICARE BLUE all dates PPO ([phone]) Guarantor Name Account Type Relation to Date of Phone Billing Patient Address Estelle Wolff/Family 1940 [phone] [address] [phone] [place], [place] (Work) [address] documented as of this encounter
--- OUTSIDE RECORDS SUMMARY | 2019-06-08 06:08 | XMS REPORT | Summary of Care ---
:1940 Demographics Phone Unavailable Preferred Language Unknown Marital Status Unknown Anabaptism Affiliation Unknown Race Unknown Ethnic Group Unknown Author Organization [facility] Address [address] [place] [address] Care Team Providers Name Role Phone Unavailable Primary Care Provider Unavailable Encounter Details Date Type Department Care Team Description 05/16/2019 Hospital Encounter [address] [address] Allergies Not on Filedocumented as of this encounter (statuses as of 05/31/2019) Medications Not on filedocumented as of this encounter (statuses as of 05/31/2019) Active Problems Not on filedocumented as of this encounter (statuses as of 05/31/2019) Social History Tobacco Use Types Packs/Day Years Used Date Never Assessed Sex Assigned at Date Recorded Not on file Job Start Date Occupation Industry Not on file Not on file Not on file Travel History Travel Start Travel End No recent travel history available. documented as of this encounter Last Filed Vital Signs Not on filedocumented in this encounter Plan of Treatment Not on filedocumented as of this encounter Results Not on filedocumented in this encounter
--- OUTSIDE RECORDS SUMMARY | 2019-06-08 06:08 | XMS REPORT | Continuity of Care Document ---
:1940 External Reference #:[id number] Author Name Tuan Ohara DO FAC (transmitted by agent of provider Rakel Burkett) Address [address] [place] [address] Care Team Providers Name Role Phone Mickey Manzano MD - Internal Care Team Information [employer] Medicine Problems Active Problems Provider Date Cervical spondylosis with myelopathy Joaquin Arboleda M.D. Onset: 06/13/2018 Social History Type Date Description Comments Sex Unknown ETOH Use Currently consumes alcohol Tobacco Use Start: Unknown End: Patient is a former smoker Unknown Recreational Drug Use Denies Drug Use Smoking Status Reviewed: 12/31/18 Patient is a former smoker Exercise Type/Frequency Does not exercise Allergies, Adverse Reactions, Alerts Active Allergies Reaction Severity Comments Date Penicillin 05/09/2018 Medications Active Medications SIG Qnty Indications Ordering Provider Date Metoprolol Succinate ER 1 by mouth Unknown 25mg every day Tablets ER 24HR Aleve PM Unknown 220-25mg Tablets Cyclobenzaprine HCL take 1 tab by Unknown 10mg mouth 2-3 times Tablets a day as needed Immunizations Description No Information Available Vital Signs Date Vital Result Comment 12/31/2018 9:21am Heart Rate 68 /min BP Systolic 120 mmHg BP Diastolic 66 mmHg Respiratory Rate 16 /min Body Temperature 98.6 F 12/18/2018 8:54am Height 62.5 inches 5'2.50" Weight 152.00 lb Heart Rate 68 /min BP Systolic 138 mmHg BP Diastolic 72 mmHg Respiratory Rate 16 /min Body Temperature 98.2 F BMI (Body Mass Index) 27.4 kg/m2 Results Test Acquired Date Facility Test Result H/L Range Note Laboratory test 12/18/2018 [facility] Surgical SEE RESULT [address] Pathology BELOW [place], [place] [id number] [phone] 1 SEE RESULT BELOW Name: JOSSIE WOLFF : [address]: Tuan Perez MD Acct: [id number] Unit: [id number] AGE: 78 Location: [facility] Re12/18/18 SEX: F Status: REG REF SPEC: [id number] MIAH: 12/18/18-[address]: Tuan Perez MD REQ: [id number] RECD: 12/18/18120 STATUS: SOUT _ ORDERED: LEVEL 4 COMMENTS: [id number] FINAL DIAGNOSIS Temporal artery, right, biopsy: -- Benign arterial tissue with no significant pathologic abnormalities; see comment. COMMENT: Histologic sections show cross sections of muscular arterial wall with an intact internal elastic lamina and no evidence of lymphocytic, neutrophilic, or histiocytic inflammation. Partially treated temporal arteritis may have minimal or absent histologic findings. Clinical-pathologic correlation is recommended. CLINICAL HISTORY No history given GROSS DESCRIPTION The specimen is received in formalin labeled, Left Temporal Artery Biopsy, and consists of a 1.8 x 0.2 cm hayes-pink cylindrical soft tissue fragment which is serially sectioned and entirely submitted in one cassette. Signed by and Reported on: Caitlin Lee MD 12/19/18 1322 END OF REPORT DEPARTMENT OF PATHOLOGY, [address] [place] [address] Alejandro Almonte M.D. Director [facility] # [id number] Procedures Date Code Description Status 12/18/2018 30206 Ligation Or Biopsy Temporal Artery Completed Medical Devices Description No Information Available Encounters Type Date Location Provider Dx Diagnosis Office Visit 05/16/2019 [facility] Ludivina Meade, K92.2 Gastrointestinal 11:11a juan Bolanos MD hemorrhage, Hospitalists unspecified I35.0 Nonrheumatic aortic (valve) stenosis I10 Essential (primary) hypertension G25.81 Restless legs syndrome Office Visit 05/15/2019 [facility] Ludivina K92.2 Gastrointestinal 11:10a juan Bolanos MD hemorrhage, Hospitalists unspecified I35.0 Nonrheumatic aortic (valve) stenosis I10 Essential (primary) hypertension Office Visit 05/14/2019 [facility] Ludivina K92.2 Gastrointestinal 11:10a juan Bolanos MD hemorrhage, Hospitalists unspecified I35.0 Nonrheumatic aortic (valve) stenosis I10 Essential (primary) hypertension Office Visit 05/13/2019 [facility] K92.2 Gastrointestinal 11:10a juan Bolanos MD hemorrhage, Hospitalists unspecified I35.0 Nonrheumatic aortic (valve) stenosis I10 Essential (primary) hypertension Office 05/12/2019 [facility] K92.2 Gastrointestinal Visit 11:09a juan Bolanos M.D. hemorrhage, Hospitalists unspecified I35.0 Nonrheumatic aortic (valve) stenosis R01.1 Cardiac murmur, unspecified I10 Essential (primary) hypertension Office 05/11/2019 [facility] K92.2 Gastrointestinal Visit 11:09a juan Bolanos M.D. hemorrhage, Hospitalists unspecified I10 Essential (primary) hypertension R01.1 Cardiac murmur, unspecified Office 05/10/2019 [facility] K92.2 Gastrointestinal Visit 11:08a juan Bolanos M.D. hemorrhage, Hospitalists unspecified I10 Essential (primary) hypertension Office Visit 05/09/2019 [facility] K92.2 Gastrointestinal 11:07a juan Bolanos M.D. hemorrhage, Hospitalists unspecified I10 Essential (primary) hypertension Assessments Date Code Description Provider 05/16/2019 K92.2 Gastrointestinal hemorrhage, unspecified Ludivina Meade MD 05/16/2019 I35.0 Nonrheumatic aortic (valve) stenosis Ludivina Meade MD 05/16/2019 I10 Essential (primary) hypertension Ludivina Meade MD 05/16/2019 G25.81 Restless legs syndrome Ludivina Meade MD 05/15/2019 K92.2 Gastrointestinal hemorrhage, unspecified Ludivina Meade MD 05/15/2019 I35.0 Nonrheumatic aortic (valve) stenosis Ludivina Meade MD 05/15/2019 I10 Essential (primary) hypertension Ludivina Meade MD 05/14/2019 K92.2 Gastrointestinal hemorrhage, unspecified Ludivina Meade MD 05/14/2019 I35.0 Nonrheumatic aortic (valve) stenosis Ludivina Meade MD 05/14/2019 I10 Essential (primary) hypertension Ludivina Meade MD 05/13/2019 K92.2 Gastrointestinal hemorrhage, unspecified Ludivina Meade MD 05/13/2019 I35.0 Nonrheumatic aortic (valve) stenosis Ludivina Meade MD 05/13/2019 I10 Essential (primary) hypertension Ludivina Meade MD 05/12/2019 K92.2 Gastrointestinal hemorrhage, unspecified David Corado , M.DMyranda 05/12/2019 I35.0 Nonrheumatic aortic (valve) stenosis Ignacia Sandoval.DMyranda 05/12/2019 R01.1 Cardiac murmur, unspecified David Corado, M.DMyranda 05/12/2019 I10 Essential (primary) hypertension Ignacia Sandoval.Dontrell 05/11/2019 K92.2 Gastrointestinal hemorrhage, unspecified David Mostacieallem , M.D. 05/11/2019 I10 Essential (primary) hypertension David Corado M.DMyranda 05/11/2019 R01.1 Cardiac murmur, unspecified David Mickie, M.DMyranda 05/10/2019 K92.2 Gastrointestinal hemorrhage, unspecified David Mickie , M.DMyranda 05/10/2019 I10 Essential (primary) hypertension David Corado M.D. 05/09/2019 K92.2 Gastrointestinal hemorrhage, unspecified Rosy Tate M.D. 05/09/2019 I10 Essential (primary) hypertension Rosy Tate M.D. 12/31/2018 R51 Headache Tuan Perez MD, FACS 12/18/2018 R51 Headache Tuan Perez MD, FACS Plan of Treatment 12/31/2018 - Tuan Perez MD, [id number] HeadacheFollow up:None needed Functional Status Description No Information Available Mental Status Description No Information Available Referrals Description No Information Available
--- OUTSIDE RECORDS SUMMARY | 2019-06-08 06:08 | XMS REPORT | Summary of Care ---
:1940 Author Organization [facility] Address [address] [place] [address] Care Team Providers Name Role Phone Mario Hernandez MD Unavailable Unavailable Shanika Pineda RN Signallamp Material Analyst Unavailable Polly Talavera Primary Care Provider Reason for Visit Reason Comments Gastroesophageal Reflux GERD wakes her when she takes omeprazole. Anemia Follow up. Encounter Details Date Type Department Care Team Description 06/03/2019 Office Visit Zuleyma Talavera, Gilma iron deficiency anemia (Primary Dx); Practice MD Polly Heartburn; [address] [facility] Other pruritus; [place] [address] [place] [address] Menopause [phone] Allergies Active Allergy Reactions Severity Noted Date Comments Ct Dye Dermatologic Reaction 11/16/2009 Penicillins Other 06/09/2010 documented as of this encounter (statuses as of 06/03/2019) Medications Medication Sig Dispensed Refills Start Date End Date Status Multiple Take 1 Tab by 0 Active Vitamins-Minerals (ONE mouth DAILY. DAILY WOMENS 50+) Oral Tab Nystatin 698410 UNIT/GM 0.0001 g by Apply 60 g 4 05/09/2018 Active Apply externally Powder externally route TWICE DAILY. metoprolol succinate Take 1 Tab by 90 Tab 3 09/24/2018 Active (TOPROL XL) 25 MG Oral mouth DAILY. TABLET SR 24 HRIndications: Essential hypertension ropinirole (REQUIP) 2 Take 1 Tab by 30 Tab 1 04/24/2019 Active MG Oral Tab mouth EVERY BEDTIME. Omeprazole 40 MG Oral 0 05/20/2019 Active CAPSULE DELAYED RELEASE cetirizine (ZYRTEC) 10 Take 1 Tab by 30 Tab 1 05/27/2019 Active MG Oral Tab mouth DAILY. diphenhydrAMINE Take 25 mg by 60 Tab 1 05/27/2019 Active (BENADRYL ALLERGY) 25 mouth EVERY FOUR MG Oral Tab HOURS NEEDED (pruritis). ferrous sulfate 325 (65 Take 325 mg by 0 Active Fe) MG Oral Tab mouth DAILY. pantoprazole (PROTONIX) Take 1 Tab by 30 Tab 1 06/03/2019 Active 40 MG Oral Tab EC mouth DAILY. documented as of this encounter (statuses as of 06/03/2019) Active Problems Problem Noted Date Restless leg syndrome 06/28/2018 Hearing loss of right ear 02/10/2015 Chronic insomnia 02/10/2015 Osteoporosis 11/02/2012 Overview: FRAX 4.9/17% based on DEXA 07/02 H/O: hysterectomy 07/09/2010 Overview: Age 21 Essential hypertension SVT (supraventricular tachycardia) Overview: briefly on metoprol by prior provider for "angina" symptoms Mixed hyperlipidemia Overview: LDL 161, HDL 88 documented as of this encounter (statuses as of 06/03/2019) Resolved Problems Problem Noted Date Resolved Date Shoulder pain, right 04/02/2014 02/10/2015 Anxiety 02/10/2015 documented as of this encounter (statuses as of 06/03/2019) Immunizations Name Administration Dates Next Due Influenza [...] Sign Reading Time Taken Comments Blood Pressure 132/78 06/03/2019 1:23 PM EST Pulse 64 06/03/2019 1:23 PM EST Temperature - - Respiratory Rate - - Oxygen Saturation 99% 06/03/2019 1:23 PM EST Inhaled Oxygen Concentration - - Weight 68.9 kg (152 lb) 06/03/2019 1:23 PM EST Height 157.5 cm (5' 2") 06/03/2019 1:23 PM EST Body Mass Index 27.8 06/03/2019 1:23 PM EST documented in this encounter Patient Instructions Patient InstructionsPolly Talavera MD - 06/03/2019 1:20 PM EST1. Stop Omeprazole. Start Protonix 40 mg once a day 2. Schedule non fasting blood tests in 1 month 3. Schedule Dexa, Medicare wellness documented in this encounter Progress Notes Polly Talavera MD - 06/03/2019 1:20 PM EST Patient: Estelle Wolff Date of Service: 06/03/2019 Subjective: Estelle Wolff is a 78-y.o. female who presents for Chief Complaint Patient presents with Gastroesophageal Reflux GERD wakes her when she takes omeprazole. Anemia Follow up. Patient comes follow up recent GI bleeding Started on Iron supplement Also - reports completely resolved pruritis States Omeprazole causes her to have heartburn at night Past Medical History: Diagnosis Date Advanced directives, [...] restarted November 2010 Outpatient Medications as of 06/03/2019 Medication Sig Dispense Refill cetirizine (ZYRTEC) 10 MG Oral Tab Take 1 Tab by mouth DAILY. 30 Tab 1 diphenhydrAMINE (BENADRYL ALLERGY) 25 MG Oral Tab Take 25 mg by mouth EVERY FOUR HOURS NEEDED (pruritis). 60 Tab 1 metoprolol succinate (TOPROL XL) 25 MG Oral TABLET SR 24 HR Take 1 Tab by mouth DAILY. 90 Tab3 Multiple Vitamins-Minerals (ONE DAILY WOMENS 50+) Oral Tab Take 1 Tab by mouth DAILY. Nystatin 586343 UNIT/GM Apply externally Powder 0.0001 g by Apply externally route TWICE DAILY. 60 g 4 Omeprazole 40 MG Oral CAPSULE DELAYED RELEASE ropinirole (REQUIP) 2 MG Oral Tab Take 1 Tab by mouth EVERY BEDTIME. 30 Tab 1 No current facility-administered medications on file as of 06/03/2019. Allergies Allergen Reactions Iv Contrast [Ct Dye] Dermatologic Reaction Penicillins Other Review of Systems: All remaining review of systems was negative. Objective: BP 132/78 Pulse 64 Ht 5' 2" (1.575 m) Wt 152 lb (68.9 kg) SpO2 99% BMI 27.8 kg/m2 GENERAL: alert, no distress ABDOMEN: soft, non-tender. Bowel sounds normal. No masses, no organomegaly SKIN: Skin color, texture, turgor normal. No rashes or lesions. CBC - anemia, Iron - low. BMP, LFT's - normal Component Latest Ref Rng & Units 05/27/2019 05/27/2019 05/27/2019 05/27/2019201905/27/2019 1:57 PM 1:57 PM 1:57 PM 1:57 PM 1:57 PM 1:57 PM WBC COUNT 3.98 - 10.04 K/uL 5.73 RBC 3.93 - 5.22 M/UL 2.90 (L) Hemoglobin 11.2 - 15.7 g/dL 8.1 (L) Hematocrit 34.1 - 44.9 % 26.8 (L) MCV 79.4 - 94.8 FL 92.4 MCH 25.6 - 32.2 PG 27.9 MCHC 32.2 - 35.5 g/dL 30.2 (L) Platelet Count 182 - 369 K/uL 332 MPV 9.4 - 12.3 FL 9.3 (L) RDW 11.7 - 14.4 % 15.0 (H) NEUTROPHILS 34.0 - 71.1 % 69.9 Lymphocyte % 19.3 - 51.7 % 19.5 MONOCYTES 4.7 - 12.5 % 6.8 Eosinophils 0.7 - 5.8 % 2.4 Basophil % 0.1 - 1.2 % 1.2 nRBC % 0.0 - 0.2 % 0.0 Neutrophil # 1.56 - 6.13 K/UL 4.00 Lymphocyte # 1.18 - 3.74 K/UL 1.12 (L) Monocyte # 0.24 - 0.86 K/UL 0.39 Eosinophil # 0.04 - 0.36 K/UL 0.14 Basophil # 0.01 - 0.08 K/UL 0.07 Immature Gran % 0.0 - 0.4 % 0.2 Immature Gran # 0.00 - 0.03 K/uL 0.01 NRBC # 0.00 - 0.12 K/uL 0.00 Glucose (Lab) 70 - 99 mg/dl 97 BUN 7 - 17 mg/dl 15 Creatinine 0.7 - 1.2 mg/dl 0.8 Sodium 134 - 145 mmol/L 134 Potassium 3.5 - 5.1 mmol/L 3.8 Chloride 98 - 107 mmol/L 104 CO2 22 - 30 mmol/L 23 Calcium 8.3 - 10.1 mg/dl 8.7 eGFR See Interpretation Below ml/min/1.73ml Sq >60 BUN/Creatinine Ratio 6 - 22 RATIO 19 Anion Gap 3 - 11 mmol/L 7 Protein,Total 6.3 - 8.2 g/dl 6.9 Albumin 3.5 - 5.0 g/dl 3.7 Total Bilirubin 0.0 - 1.1 MG/DL 0.3 Direct Bilirubin 0.0 - 0.3 MG/DL 0.0 AST 15 - 46 U/L 34 ALT 9 - 52 U/L 24 ALKALINE PHOSPHATASE 40 - 150 U/L 59 A/G Ratio 0.8 - 2.0 ratio 1.2 TOTAL BILE ACIDS < OR = 6.8 umol/L 2.9 CHOLIC ACID < OR = 1.8 umol/L <0.5 DEOXYCHOLIC ACID < OR = 2.4 umol/L 0.8 CHENODEOXYCHOLIC ACID < OR = 3.1 umol/L 2.1 Ferritin 11.1 - 264.0 NG/ML 10.5 (L) Iron Serum 37 - 170 UG/DL 15 (L) Patient advised on tests results ICD-9-CM ICD-10-CM 1. Other iron deficiency anemia 280.8 D50.8 HEMOGLOBIN & HEMATOCRIT FERRITIN IRON CBC WITH DIFFERENTIAL 2. Heartburn 787.1 R12 3. Other pruritus Resolved 698.8 L29.8 4. Menopause 627.2 Z78.0 XR DEXA SCAN 1 OR MORE SITES Patient Instructions 1. Stop Omeprazole. Start Protonix 40 mg once a day 2. Schedule non fasting blood tests in 1 month 3. Schedule Dexa, Medicare wellness Author: Polly Talavera MD documented in this encounter Plan of Treatment Date Type Specialty Care Team Description 06/04/2019 Office Visit Orthopedics Reinier Jarrell MD [address] [facility] [place] [address] [phone] 07/03/2019 Lab Internal Medicine 07/10/2019 Office Visit Family Practice Polly Talavera MD [address] [place] [address] [phone] 07/10/2019 Ancillary Procedure Radiology Name Type Priority Associated Diagnoses Date/Time HEMOGLOBIN & HEMATOCRIT Lab Routine Other iron deficiency 06/03/2019 2:04 PM EST anemia Name Type Priority Associated Diagnoses Order Schedule XR DEXA SCAN 1 OR MORE Imaging Routine Menopause Expected: SITES 06/03/2019, Expires: 11/19/2021 FERRITIN Lab Routine Other iron deficiency Expected: 06/03/2019 anemia (Approximate), Expires: 06/03/2020 IRON Lab Routine Other iron deficiency Expected: 06/03/2019 anemia (Approximate), Expires: 06/03/2020 CBC WITH DIFFERENTIAL Lab Routine Other iron deficiency Expected: 2019 anemia (Approximate), Expires: 06/03/2020 Health Maintenance Due Date Last [...] Type Problems Progress Blood Pressure Blood Essential 132/78 No [place], < 140/90 Pressure hypertension (06/03/2019 Mickey Monroe, 1:23 PM EST) Note: Hypertension Care Plan Based [...] Educational Resources: National Heart, Lung, & Blood [place] http://nhlbi.nih.gov/hbp/index.html The DASH Diet Eating Plan http://www.nhlbi.nih.gov/health/health-topics/ topics/dash/ Academy of Nutrition & DIetetics http://eatright.org National Smoking Cessation Site http://smokefree.gov Blood Pressure < 150/90 Blood Pressure 132/78 (06/03/2019 1:23 Reinier Urbano MD PM EST) Note: This is an [...] Take all prescribed medications as directed Self-management No Reinier Cárdenas MD Note: This is an individualized self-management goal for Estelle Rankin Wolff: Please take all prescribed medications as [...] filedocumented in this encounter Visit Diagnoses Diagnosis Other iron deficiency anemia Heartburn Other pruritus Menopause Asymptomatic postmenopausal status (age-related) (natural) documented in this encounter Insurance Payer Benefit Plan / Subscriber ID Effective Dates Phone Address Type Group [facility] MEDICARE [facility] xxxxxxxxxxxx Effective for [employer]VANT[employer] MEDICARE BLUE all dates PPO ([phone]) Guarantor Name Account Type Relation to Date of Phone Billing Patient Address Estelle Wolff Personal/Family [address] [facility] [place] (Home) [address] [phone] [place], [place] (Work) [address] documented as of this encounter
--- OUTSIDE RECORDS SUMMARY | 2019-06-08 06:08 | XMS REPORT | Continuity of Care Document ---
:1940 External Reference #:[id number] Author Name Tuan Ohara DO FAC (transmitted by agent of provider Shonda Bingham) Address [address] [place] [address] Care Team Providers Name Role Phone Polly Talavera MD - Family Care Team Information [facility] Medicine Problems Active Problems Provider Date Cervical spondylosis with myelopathy Joaquin Arboleda M.D. Onset: 06/13/2018 Social History Type Date Description Comments Sex Unknown ETOH Use Currently consumes alcohol Tobacco Use Start: Unknown End: Patient is a former smoker Unknown Recreational Drug Use Denies Drug Use Smoking Status Reviewed: 05/23/19 Patient is a former smoker Exercise Type/Frequency Does not exercise Allergies, Adverse Reactions, Alerts Active Allergies Reaction Severity Comments Date Penicillin 05/09/2018 Medications Active Medications SIG Qnty Indications Ordering Provider Date Metoprolol Succinate 1 by mouth every Unknown ER day 25mg Tablets ER 24HR Ropinirole HCL take 1 tablet by Unknown 0.25mg mouth at bedtime Tablets Immunizations Description No Information Available Vital Signs Date Vital Result Comment 05/23/2019 2:25pm Height 62 inches 5'2" Weight 151.00 lb with shoes Heart Rate 62 /min BP Systolic Sitting 126 mmHg Ra BP Diastolic Sitting 72 mmHg Ra BP Systolic Standing 122 mmHg Ra BP Diastolic Standing 76 mmHg Ra BMI (Body Mass Index) 27.6 kg/m2 Ejection Fraction 65-70% Echo 05/12/19 12/31/2018 9:21am Heart Rate 68 /min BP Systolic 120 mmHg BP Diastolic 66 mmHg Respiratory Rate 16 /min Body Temperature 98.6 F Results Test Acquired Date Facility Test Result H/L Range Note Laboratory test 12/18/2018 [facility] Surgical SEE RESULT [address] Pathology BELOW [place], [place] [id number] [phone] 1 SEE RESULT BELOW Name: JOSSIE WOLFF : [address]: Tuan Perez MD Acct: [id number] Unit: [id number] AGE: 78 Location: [facility] Re12/18/18 SEX: F Status: REG REF SPEC: [id number] MIAH: 12/18/18-[address]: Tuan Perez MD REQ: [id number] RECD: 12/18/18120 STATUS: SOUT _ ORDERED: LEVEL 4 COMMENTS: [id number] FINAL DIAGNOSIS Temporal artery, right, biopsy: -- [...] 1322 END OF REPORT DEPARTMENT OF PATHOLOGY, [address] [place] [address] Alejandro Almonte M.D. Director [facility] # [id number] Procedures Date Code Description Status 05/23/2019 76051 EKG Tracing & Interpretation Completed 12/18/2018 65133 Ligation Or Biopsy Temporal Artery Completed Medical Devices Description No Information Available Encounters Type Date Location Provider Dx Diagnosis Office Visit 05/16/2019 [facility], K92.2 Gastrointestinal 11:11a juan Bolanos MD hemorrhage, Hospitalists unspecified I35.0 Nonrheumatic aortic (valve) stenosis I10 Essential (primary) hypertension G25.81 Restless legs syndrome Office Visit 05/15/2019 [facility] K92.2 Gastrointestinal 11:10a juan Bolanos MD hemorrhage, Hospitalists unspecified I35.0 Nonrheumatic aortic (valve) stenosis I10 Essential (primary) hypertension Office Visit 05/14/2019 [facility] K92.2 Gastrointestinal 11:10a juan Bolanos MD hemorrhage, Hospitalists unspecified I35.0 Nonrheumatic aortic (valve) stenosis I10 Essential (primary) hypertension Office Visit 05/13/2019 [facility] K92.2 Gastrointestinal 11:10a juan Bolanos MD hemorrhage, Hospitalists unspecified I35.0 Nonrheumatic aortic (valve) stenosis I10 Essential (primary) hypertension Office 05/12/2019 [facility] K92.2 Gastrointestinal Visit 11:09a juan Bolanos M.D. hemorrhage, Hospitalists unspecified I35.0 Nonrheumatic aortic (valve) stenosis R01.1 Cardiac murmur, unspecified I10 Essential (primary) hypertension Office 05/11/2019 [facility] K92.2 Gastrointestinal Visit 11:09a juan Bolanos M.D. hemorrhage, Hospitalists unspecified I10 Essential (primary) hypertension R01.1 Cardiac murmur, unspecified Office 05/10/2019 [facility] K92.2 Gastrointestinal Visit 11:08a juan Bolanos M.D. hemorrhage, Hospitalists unspecified I10 Essential (primary) hypertension Office Visit 05/09/2019 [facility] K92.2 Gastrointestinal 11:07a juan Bolanos M.D. hemorrhage, Hospitalists unspecified I10 Essential (primary) hypertension Assessments Date Code Description Provider 05/23/2019 I35.0 Nonrheumatic aortic (valve) stenosis Tuan Ohara, DO [facility] 05/23/2019 K92.2 Gastrointestinal hemorrhage, unspecified Tuan Ohara, DO [facility] 05/16/2019 K92.2 Gastrointestinal hemorrhage, unspecified Ludivina Meade [...] MD 05/12/2019 K92.2 Gastrointestinal hemorrhage, unspecified David Mostacieallem , M.DMyranda 05/12/2019 I35.0 Nonrheumatic aortic (valve) stenosis Ignacia Sandoval.DMyranda 05/12/2019 R01.1 Cardiac murmur, unspecified David Moussallem, M.D. 05/12/2019 I10 Essential (primary) hypertension Ignacia Sandoval.DMyranda 05/11/2019 K92.2 Gastrointestinal hemorrhage, unspecified David Moussallem , M.DMyranda 05/11/2019 I10 Essential (primary) hypertension Ignacia Sandoval.DMyranda 05/11/2019 R01.1 Cardiac murmur, unspecified David Moussallem, M.DMyranda 05/10/2019 K92.2 Gastrointestinal hemorrhage, unspecified David Moussallem , M.DMyranda 05/10/2019 I10 Essential (primary) hypertension Ignacia Sandoval.Dontrell 05/09/2019 K92.2 Gastrointestinal hemorrhage, unspecified Ignacia Curry.Dontrell 05/09/2019 I10 Essential (primary) hypertension Rosy Tate M.D. 12/31/2018 R51 Headache Tuan Perez MD, FACS 12/18/2018 R51 Headache Tuan Perez MD, FACS Plan of Treatment 05/23/2019 - Tuan Ohara DO FACCI35.0 Nonrheumatic aortic (valve) stenosisNew Orders:Echocardiogram, Ordered: 05/23/19Follow up:f/u 6 months with echo prior to tjjhvX60.2 Gastrointestinal hemorrhage, unspecified Functional Status Description No Information Available Mental Status Description No Information Available Referrals Description No Information Available
--- OUTSIDE RECORDS SUMMARY | 2019-06-08 06:08 | XMS REPORT | Summary of Care ---
:1940 Author Organization [facility] Address [address] [facility] [place] [address] Care Team Providers Name Role Phone Mario Hernandez MD Unavailable Unavailable Shanika Pineda RN [employer] Business Manager Unavailable Polly Talavera Primary Care Provider Reason for Visit Reason Comments Transitional Care Management from [facility] with retcal bleeding , was sent to darrion , pt hasnt had any other bleeding pt weak , pt also c/o of burning with voiding , and is itching all over skin feels on fire pt was given IV contrast at [facility] cant sleep . is seeing Dr matta Encounter Details Date Type Department Care Team Description 05/27/2019 Office Visit Zuleyma Olsen Ilan, Generalized pruritus ( Primary Dx); Traci Matias MD Other iron deficiency anemia; [address] Acute GI bleeding; [place] [address] [place] [address] Dysuria; [phone] Aortic valve stenosis, etiology of cardiac valve disease unspecified Allergies Active Allergy Reactions Severity Noted Date Comments Ct Dye Dermatologic Reaction 11/16/2009 Penicillins Other 06/09/2010 documented as of this encounter (statuses as of 05/27/2019) Medications Medication Sig Dispensed Refills Start Date End Date Status Multiple Take 1 Tab by 0 Active Vitamins-Minerals mouth DAILY. (ONE DAILY WOMENS 50+) Oral Tab Nystatin 658249 0.0001 g by 60 g 4 05/09/2018 Active UNIT/GM Apply Apply externally Powder externally route TWICE DAILY. metoprolol succinate Take 1 Tab by 90 Tab 3 09/24/2018 Active (TOPROL XL) 25 MG mouth DAILY. Oral TABLET SR 24 HRIndications: Essential hypertension ropinirole (REQUIP) Take 1 Tab by 30 Tab 1 04/24/2019 Active 2 MG Oral Tab mouth EVERY BEDTIME. Omeprazole 40 MG 0 05/20/2019 Active Oral CAPSULE DELAYED RELEASE cetirizine (ZYRTEC) Take 1 Tab by 30 Tab 1 05/27/2019 Active 10 MG Oral Tab mouth DAILY. diphenhydrAMINE Take 25 mg by 60 Tab 1 05/27/2019 Active (BENADRYL ALLERGY) mouth EVERY 25 MG Oral Tab FOUR HOURS NEEDED (pruritis). Dwhcurg-Avaivbhjb-Xd Take 1 Tab by 60 Tab 0 02/10/2015 Discontinued tamin D (CALCIUM mouth TWICE 0 500) 500-250-200 DAILY. MG-MG-UNIT Oral Tab Naproxen Take by mouth 0 Discontinued Sod-Diphenhydramine NEEDED. 0 (ALEVE PM PO) diclofenac 2 g by Topical 100 g 4 06/28/2018 Discontinued (VOLTAREN) 1 % route THREE 0 Transdermal Gel TIMES DAILY NEEDED (thumb pain). triamcinolone Apply to scalp 80 g 5 11/30/2018 Discontinued (KENALOG) 0.1 % twice daily 0 Apply externally Ointment escitalopram Take 1 Tab by 30 Tab 5 01/09/2019 Discontinued (LEXAPRO) 10 MG Oral mouth DAILY. 0 Tab documented as of this encounter (statuses as of 05/27/2019) Active Problems Problem Noted Date Restless leg syndrome 06/28/2018 Hearing loss of right ear 02/10/2015 Chronic insomnia 02/10/2015 Osteoporosis 11/02/2012 Overview: FRAX 4.9/17% based on DEXA 07/02 H/O: hysterectomy 07/09/2010 Overview: Age 21 Essential hypertension SVT (supraventricular tachycardia) Overview: briefly on metoprol by prior provider for "angina" symptoms Mixed hyperlipidemia Overview: LDL 161, HDL 88 documented as of this encounter (statuses as of 05/27/2019) Resolved Problems Problem Noted Date Resolved Date Shoulder pain, right 04/02/2014 02/10/2015 Anxiety 02/10/2015 documented as of this encounter (statuses as of 05/27/2019) Immunizations Name Administration Dates Next Due Influenza [...] Sign Reading Time Taken Comments Blood Pressure 102/60 05/27/2019 1:10 PM EST Pulse 66 05/27/2019 1:10 PM EST Temperature 37.6 05/27/2019 1:10 PM EST C (99.6 F) Respiratory Rate - - Oxygen Saturation 100% 05/27/2019 1:10 PM EST Inhaled Oxygen Concentration - - Weight 67.3 kg (148 lb 4.8 oz) 05/27/2019 1:10 PM EST Height - - Body Mass Index 26.69 04/24/2019 4:26 PM EST documented in this encounter Patient Instructions Patient InstructionsPolly Talavera MD - 05/27/2019 1:00 PM EST1. Start Zyrtec 10 mg once a day 2. Benadryl 25 mg every 4 hours as needed for pruritis 3. Follow up in 1 week and as needed documented in this encounter Progress Notes Polly Talavera MD - 05/27/2019 1:00 PM EST Patient: Estelle Wolff Date of Service: 05/27/2019 Subjective: Estelle Wolff is a 78-y.o. female who presents for Chief Complaint Patient presents with Transitional Care Management from [facility] with retcal bleeding , was sent to darrion , pt hasnt had any other bleeding pt weak , ptalso c/o of burning with voiding , and is itching all over skin feels on fire pt was given IV contrast at [facility] cant sleep . is seeing Dr matta TCM Statement. Review of the hospitalization: I am seeing for transition of care following hospitalization. The date of discharge was: 05/20/19 The discharge diagnosis was Acute Lower GI bleed suspected from the terminal ileum from a AVM or Dieulafoy's lesion I reviewed the discharge summary, discharge instructions, and pertinent additional documentation obtained during hospitalization. I reconciled the medications. I also reviewed the Transition of Care documentation done by staff. Coordination of care. (delete one and this phrase) - I am satisfied that appropriate referrals are in place to deal with the problems identified during hospitalization, and that the patient has adequate community resources and support in place. - Additional testing related to hospitalization was requested today: yes See orders. I confirmed the patient's understanding of the diagnosis and plan of care. The current and discharge medications were reconciled by me, today The source document was hospital discharge summary Patient presented to [facility] ER von 05/09/19 with complains of bloody diarrhea for [address] of abdomen and pelvis showed fluid filled colon EGD: hemorrhagic gastritis. Colonoscopy: colon filled with blood. The terminal ileum was not reached Nuclear scan: activity noted in the stomach, no activity in the intestines Capsule endoscopy - fresh blood at distal terminal ileum. Patient was transferred to [facility] for further evaluation Patient receive 5 units of RBC during her stay at [facility]. Also had ECHO- done for systolic murmur found on exam that showed At [place] patient had colonoscopy done: - Diverticulosis in the sigmoid colon. - The examined portion of the ileum was normal; however, only limited depth of insertion was achieved due to looping. -Video capsule in cecum Patient was discharged home in stable condition Started on oral Omeprazole Oral antiinflammatory were discontinued Today patient complains of generalized pruritis started several days ago Patient states that she is allergic to IV contrast, but she didn't have any recent contrast study Also today complains of urgency/frequency with urination Past Medical History: Diagnosis Date Advanced directives, [...] restarted November 2010 Outpatient Medications as of 05/27/2019 Medication Sig Dispense Refill metoprolol succinate (TOPROL XL) 25 MG Oral TABLET SR 24 HR Take 1 Tab by mouth DAILY. 90 Tab3 Multiple Vitamins-Minerals (ONE DAILY WOMENS 50+) Oral Tab Take 1 Tab by mouth DAILY. Nystatin 181956 UNIT/GM Apply externally Powder 0.0001 g by Apply externally route TWICE DAILY. 60 g 4 Omeprazole 40 MG Oral CAPSULE DELAYED RELEASE ropinirole (REQUIP) 2 MG Oral Tab Take 1 Tab by mouth EVERY BEDTIME. 30 Tab 1 No current facility-administered medications on file as of 05/27/2019. Allergies Allergen Reactions Iv Contrast [Ct Dye] Dermatologic Reaction Penicillins Other Review of Systems: All remaining review of systems was negative. Objective: BP 102/60 (BP Location: Left arm, Patient Position: Sitting) Pulse 66 Temp 99.6 F (37.6 C) Wt 148 lb 4.8 oz (67.3 kg) SpO2 100% BMI 26.69 kg/m2 GENERAL: alert, fatigued, pale THROAT: lips, mucosa, and tongue normal: teeth and gums normal NECK: supple, symmetrical, trachea midline, no adenopathy and thyroid: not enlarged, symmetric, notenderness/mass/nodules LUNGS: clear to auscultation bilaterally HEART: regular rate and rhythm, S1, S2 normal, no murmur, click, rub or gallop ABDOMEN: soft, non-tender. Bowel sounds normal. No masses, no organomegaly SKIN: No rashes, excoriations. Urine dipstick shows positive for urobilinogen, bilirubin and trace of blood ICD-9-CM ICD-10-CM 1. Generalized pruritus 698.9 L29.9 BILE ACIDS TOTAL & DEOXYCHOLIC 2. Other iron deficiency anemia 280.8 D50.8 FERRITIN IRON CBC WITH DIFFERENTIAL 3. Acute GI bleeding 578.9 K92.2 LIVER FUNCTION PROFILE Stopped. Not clear the origin BASIC METABOLIC PANEL Stomach? IRON CBC WITH DIFFERENTIAL 4. Dysuria 788.1 R30.0 URINE DIP MANUAL (AMB POCT) URINE CULTURE (C&S) URINE CULTURE (C&S) 5. Aortic valve stenosis, etiology of cardiac valve disease unspecified Seen cardiology Recommended to repeat ECHO- in 6 months 424.1 I35.0 Patient Instructions 1. Start Zyrtec 10 mg once a day 2. Benadryl 25 mg every 4 hours as needed for pruritis 3. Follow up in 1 week and as needed Author: Polly Talavera MD documented in this encounter Plan of Treatment Date Type Specialty Care Team Description 06/03/2019 Office Visit Family Practice Polly Talavera MD [address] [place] [address] [phone] 06/04/2019 Office Visit Orthopedics Reinier Jarrell MD [address] [facility] [place] [address] [phone] Name Type Priority Associated Diagnoses Date/Time LIVER FUNCTION PROFILE Lab Routine Acute GI bleeding 05/27/2019 1:57 PM EST BASIC METABOLIC PANEL Lab Routine Acute GI bleeding 05/27/2019 1:57 PM EST FERRITIN Lab Routine Other iron deficiency 05/27/2019 1:57 PM anemia EST IRON Lab Routine Other iron deficiency 05/27/2019 1:57 PM anemia EST Acute GI bleeding CBC WITH DIFFERENTIAL Lab Routine Other iron deficiency 05/27/2019 1:57 PM anemia EST Acute GI bleeding BILE ACIDS TOTAL & Lab Routine Generalized pruritus 05/27/2019 1:57 PM DEOXYCHOLIC EST URINE CULTURE (C&S) Lab Routine Dysuria 05/27/2019 1:50 PM EST Name Type Priority Associated Diagnoses Order Schedule URINE CULTURE (C&S) Lab Routine Dysuria 1 Occurrences starting 05/27/2019 until 11/23/2019 Health Maintenance Due Date Last Done Comments [...] Type Problems Progress Blood Pressure Blood Essential 102/60 No [place], < 140/90 Pressure hypertension (05/27/2019 Mickey Monroe, 1:10 PM EST) Note: Hypertension Care Plan Based [...] Educational Resources. record my blood pressure results. [email or web address] is safe and secure way for you [...] Educational Resources: National Heart, Lung, & Blood [place] http://nhlbi.nih.gov/hbp/index.html The DASH Diet Eating Plan http://www.nhlbi.nih.gov/health/health-topics/ topics/dash/ Academy of Nutrition & DIetetics http://eatright.org National Smoking Cessation Site http://smokefree.gov Blood Pressure < 150/90 Blood Pressure 102/60 (05/27/2019 1:10 Reinier Urbano MD PM EST) Note: This [...] ongoing basis. documented as of this encounter Procedures Procedure Name Priority Date/Time Associated Diagnosis Comments URINE DIP MANUAL Routine 05/27/2019 1:56 PM Dysuria Results for this (AMB POCT) EST procedure are in the results section. documented in this encounter Results URINE DIP MANUAL (AMB POCT) (05/27/2019 1:56 PM EST) URINE GLUCOSE (POCT) Negative Negative mg/dl [facility] POCT URINE BILIRUBIN Small (A) Negative [facility] (POCT) [place] POCT Urine Ketones (POCT) Negative Negative [facility] POCT URINE SPECIFIC 1.025 1.005 - 1.030 [facility] GRAVITY (POCT) [place] POCT URINE BLOOD (POCT) Trace-Intact (A) Negative [facility] POCT URINE PH (POCT) 5.0 5.0 - 8.0 [facility] POCT URINE PROTEIN (POCT) Trace (A) Negative mg/dl [facility] POCT URINE UROBILINOGEN 2.0 (A) 0.2 - 1.0 mg/dl [facility] (POCT) [place] POCT URINE NITRITES Negative Negative [facility] (POCT) [place] POCT URINE LEUKOCYTES Negative Negative [facility] (POCT) Cells/uL [place] POCT Specimen Urine - Urine specimen (specimen) Performing Organization Address City/State/Zipcode Phone Number [facility] [address] [place] [address] documented in this encounter Visit Diagnoses Diagnosis Other iron deficiency anemia Acute GI bleeding Hemorrhage of gastrointestinal tract, unspecified Generalized pruritus Unspecified pruritic disorder Dysuria Aortic valve stenosis, etiology of cardiac valve disease unspecified documented in this encounter Insurance Payer Benefit Plan / Subscriber ID Effective Dates Phone Address Type Group [facility] MEDICARE [employer] xxxxxxxxxxxx Effective for [employer] MEDICARE BLUE all dates PPO ([phone]) Guarantor Name Account Type Relation to Date of Phone Billing Patient Address Estelle Wolff Personal/Family 1940 [address] ([address]) [address] [phone] [place], [place] (Work) [id number] documented as of this encounter
--- NOTE | 2019-06-08 07:52 | ED ---
Progress - Progress Note Progress Note: Receiving sign-out from Dr. Gaona at 0700 pending 2nd Troponin. EKG at 0746 shows NSR at 65 BPM. Peaked T-waved in the anterior leads have decreased from prior. No STEMI. Dr. Martinez has reviewed and interpreted this EKG. Repeat Troponin is 0.03. Dr. Ferrari, Hospitalist, accepted the patient for admission. This plan was discussed with the patient and she understands and agrees with this plan. Course/Dx - Course Course Of Treatment: Pt is signed out to Dr. Martinez at 0700 shift change pending repeat troponin. - Diagnoses Provider Diagnoses: Chest pain, Aortic stenosis Discharge ED - Sign-Out/Discharge Documenting (check all that apply): Patient Departure - Admission, accepted by Dr. Ferrari, Hospitalist. - Discharge Plan Condition: Stable Disposition: ADMITTED TO [facility] Referrals: Mickey Manzano MD [Medical Doctor] - - Billing Disposition and Condition Condition: STABLE Disposition: Admitted to [facility] - Attestation Statements Document Initiated by Hennaibe: Yes Documenting Scribe: Mario Garcias Provider For Whom Hennaibe is Documenting (Include Credential): Saeid Martinez MD Scribe Attestation: I, Mario Garcias, scribed for Saeid Martinez MD on 06/08/19 at 0900. Scribe Documentation Reviewed: Yes Provider Attestation: The documentation as recorded by the scribMario adame accurately reflects the service I personally performed and the decisions made by , Saeid Martinez MD Status of Scribe Document: Viewed
[2019-06-08 08:31] LABS: Troponin I 0.03 ng/mL (<0.03)
[2019-06-08] MEDS ORDERED: Acetaminophen TAB* 325 MG PO ONE (08:56)
[2019-06-08] MEDS ORDERED: Ondansetron INJ* 2 MG/ML VIAL IV PRN (10:01)
[2019-06-08] MEDS ORDERED: NS 0.9% 1000 ML** 1,000 ML IV SCH (10:15)
[2019-06-08 10:45] LABS: HDL Cholesterol 73.6 mg/dL; Magnesium 2.1 mg/dL (1.9-2.7)
[2019-06-08 11:02] LABS: TSH (Thyroid Stimulating Horm) 5.97 mcIU/mL (0.34-5.60)
[2019-06-08] MEDS: Pantoprazole TAB * 40 MG TAB PO SCH (12:55)
[2019-06-08] MEDS: Metoprolol Succinate XL TAB* 25 MG PO SCH (12:55)
--- NOTE | 2019-06-08 13:11 | HP ---
CC: Dr. Talavera * MEDICINE HISTORY AND PHYSICAL: DATE OF ADMISSION: 06/08/19. PROVIDER: Juan Sandhu NP ATTENDING PHYSICIAN: Dr. Linda Ferrari * (dictated by Juan Sandhu NP) PRIMARY CARE PROVIDER: Dr. Polly Talavera. CHIEF COMPLAINT: Chest pain. HISTORY OF PRESENT ILLNESS: Ms. Wolff is a 78-year-old female who presented to the ER overnight with concern for chest pain. Of note, she was recently admitted on 05/09/19 and transferred from [facility] on 05/16/19 with concern for an ileal bleed and was transferred to [facility] for further evaluation and treatment. She states that she was last seen approximately 8 days ago in [place] for the rectal blood clots. She reports persistent fatigue and being easily tired since her hospitalization and bleeding. She reports that she still has black stools and difficulty with constipation. In regard to the chest pain Ms. Wolff went to bed last evening around 10:30 and , as she was lying down, she noticed the pain across her chest. She initially thought it was acid reflux and so she waited for it to pass. She states the pain was constant and felt like someone was sitting on her chest. She rated it at about 9/10. Reports nausea yesterday, but denied having any significant nausea overnight. Denied any shortness of breath, diaphoresis, but did endorse a headache at the time. This persisted and eventually her nephew picked her up and took her into the ER this morning for further evaluation. She states the pain has currently gone and thinks it went away somewhere between 3 and 4 a.m. this morning. She recently took Tylenol for her headache and otherwise has no current complaints. She does report history of "angina attack" at age 55 for which she was started on metoprolol. She reports her last stress test was many years ago. She states that she plans to follow up with Dr. Ohara because she has small vessels in her heart that need to be surgically corrected. I did note from her medical records that she does have a history of severe aortic stenosis with the potential to have this surgically corrected. Here in the ER, Ms. Wolff had an EKG, which initially showed peaked T-wave in the anterior leads. At her follow up EKG, this has since resolved or improved. She did have troponin with the initial troponin being 0.02. A repeat troponin was 0.03; for this reason hospitalist medicine was consulted for admission. PAST MEDICAL HISTORY: 1. Recent ileal bleed. 2. Severe aortic stenosis. 3. Hypertension. 4. SVT. 4. Restless leg syndrome. 5. Anxiety. 6. Dyslipidemia. 7. Degenerative disk disease of the spine. PAST SURGICAL HISTORY: Appendectomy. HOME MEDICATIONS: 1. Pantoprazole DR 40 mg q.a.m. 2. Metoprolol succinate ER 25 mg q.a.m. 3. Ropinirole 2 mg at bedtime. ALLERGIES: Include IV CONTRAST. She reports PENICILLIN as an allergy, but does states that it does not work for her anymore. She also reports nausea with OMEPRAZOLE. FAMILY HISTORY: She had a brother who of stomach cancer at age 41. SOCIAL HISTORY: She has a 7.5 pack year smoking history. Reports quitting over 30 years ago. She reports having a beer a couple of times a week. 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 She lives with her boyfriend Joselito Guillen who is one of her emergency contact and surrogate decision maker. Her primary healthcare proxy is Jennyfer Garcia, who is her niece. REVIEW OF SYSTEMS: A 14 point review of systems was completed with the patient , all pertinent positives and negative as per HPI. All others not mentioned are negative. PHYSICAL EXAMINATION GENERAL: This is an older female, pleasant, lying in ED stretcher in no acute distress. She is alert, oriented and interactive. VITAL SIGNS: Temperature 98.4, pulse rate 74, respiratory rate 20, blood pressure 114/52, O2 saturation 99% on room air. HEENT: Head is atraumatic and normocephalic. Pupils are equal, round, and reactive to light and accommodation. Extraocular movements are intact. Oral mucosa is moist. There is no oropharyngeal erythema or exudate. NECK: Supple without JVD. No lymphadenopathy appreciated. LUNGS: Clear to auscultation. CHEST: No tenderness with palpation CARDIAC: Normal sinus rhythm with normal S1 and S2 heart sounds. There is a harsh systolic murmur approximately grade 3/6 best heard on the right upper sternal border. No principal edema noted. Distal pulses are 2+ and symmetric bilaterally to radial dorsalis pedis and posterior tibialis sites. ABDOMEN: Soft, nontender, nondistended with normoactive bowel sounds. EXTREMITIES: Without clubbing or cyanosis. Full active range of motion in all 4 extremities. NEURO: Alert and oriented. No focal deficits. Speech is clear. Cranial nerves II through XII are grossly intact. SKIN: Warm and dry. DIAGNOSTIC STUDIES/LAB DATA: CBC: WBC 7.3, hemoglobin 9.0, hematocrit 27, platelet count 306. CMP: Sodium 138, potassium 3.6, chloride 107, BUN 19, creatinine 1.20, glucose 75, calcium 8.8. Total bilirubin 0.3, AST 27, ALT 16, alk phos 73. Troponin 0.02 and 0.03. Total protein 6.8, albumin 3.9. Chest x-ray shows no acute pulmonary disease. Old medical records were reviewed. ASSESSMENT AND PLAN: This is a 78-year-old female with a past medical history significant for recent ileal bleed with subsequent anemia severe aortic stenosis , hypertension, supraventricular tachycardia, restless leg syndrome, dyslipidemia, anxiety, who presents today with concern for chest pain that occurred overnight now resolved. PLAN: 1. Chest pain. Her HEART score is 3. She had a positive troponin finding going from 0.02 to 0.03. We will admit her for a stress test. She states she will be unable to do an exercise stress test, so she will need to do a chemical stress test. She is currently without chest pain; we will continue to monitor her with goal of keeping her chest pain free. We will continue to trend troponins and monitor EKG. We will add on TSH, lipid profile, and A1c as well. Continue to monitor. 2. Anemia. Secondary to recent ileal bleed and acute blood loss. Appears to be stable, but with her severe , we will continue to follow her CBC and fluid status. Continue pantoprazole. 3. Hypertension, stable, normotensive. Continue home metoprolol, which we will hold prior to her stress test. 4. Restless leg syndrome. Continue home ropinirole. 5. DVT prophylaxis. In light of her reports of melena as well as recent ileal bleed, I will hold chemoprophylaxis and keep the patient on SCDs at this time. 6. Status full code. TIME SPENT: Approximately 60 minutes was spent on admission with greater than half of that time spent [id number] with the patient obtaining history and physical, performing the physical examination, and reviewing the plan of care. Plan of care was also reviewed with my attending, Dr. Ferrari, who is in agreement. JUAN SANDHU NP [id number]/CPS #: [id number] RANDY
[2019-06-08 15:25] LABS: Troponin I 0.03 ng/mL (<0.03)
[2019-06-08] MEDS: Acetaminophen TAB* 325 MG PO PRN (16:02)
[2019-06-08 18:42] LABS: Troponin I 0.03 ng/mL (<0.03)
--- NOTE | 2019-06-08 19:30 | PN ---
Hospitalist Progress Note Date of Service: 06/08/19 TSH reviewed. Patient appears to have subclinical hypothyroidism; should follow up with PCP.
[2019-06-08] MEDS ORDERED: rOPINIRole TAB* 1 MG PO SCH (21:00)
[2019-06-09] MEDS: Acetaminophen TAB* 325 MG PO PRN ×2 (00:02→11:11)
[2019-06-09] MEDS: Metoprolol Succinate XL TAB* 25 MG PO SCH (08:07)
[2019-06-09] MEDS: Pantoprazole TAB * 40 MG TAB PO SCH (08:07)
[2019-06-09 08:20] LABS: ABS Eosinophils 0.2 10^3/ul (0-0.6); ABS Lymphocytes 0.9 10^3/ul (1.0-4.8); ABS Monocytes 0.4 10^3/ul (0-0.8); Eosinophil % 2.8 %; Hematocrit 25 % (35-47); Hemoglobin 8.3 g/dL (12.0-16.0); Lymphocyte % 15.9 %; Mean Corpuscular HGB Conc 33 g/dL (31-36); Mean Corpuscular Hemoglobin 28 pg (27-31); Mean Corpuscular Volume 86 fL (80-97); Platelet Count 212 10^3/uL (150-450); Red Blood Count 2.96 10^6 /uL (3.70-4.87); Red Cell Distribution Width 19 % (10-15); White Blood Count 5.5 10^3/uL (3.5-10.8)
[2019-06-09 08:35] LABS: BUN/Creatinine Ratio 19.7 (8-20); Calcium 8.6 mg/dL (8.6-10.3); EGFR African American 96.3 (>60); EGFR Non-African American 79.6 (>60); HDL Cholesterol 71.8 mg/dL; Potassium 4.2 mmol/L (3.5-5.0)
--- NOTE | 2019-06-09 11:28 | PN ---
Subjective Date of Service: 06/09/19 Interval History: Ms. Wolff denies pain since admission. She is resting comfortably. She further denies sob, nausea, or abdominal pain. Objective Active Medications: Acetaminophen (Tylenol Tab*) 650 mg PO Q4H PRN Metoprolol Succinate (Toprol Xl Tab*) 25 mg PO DAILY ROSHNI Ondansetron HCl (Zofran Inj*) 4 mg IV Q6H PRN Pantoprazole Sodium (Protonix Tab*) 40 mg PO DAILY ROSHNI Ropinirole HCl (Requip Tab*) 2 mg PO BEDTIME ROSHNI Vital Signs: Temp Pulse Resp BP Pulse Ox 98.5 F 73 18 126/55 93 06/09/19 07:15 06/09/19 07:15 06/09/19 07:58 06/09/19 07:15 06/09/19 07:15 Oxygen Devices in Use Now: None Appearance: Female sitting up in bed in NAD Eyes: No Scleral Icterus Ears/Nose/Mouth/Throat: Mucous Membranes Moist Respiratory: Symmetrical Chest Expansion and Respiratory Effort, Clear to Auscultation Cardiovascular: - - Systolic murmur Abdominal: NL Sounds; No Tenderness; No Distention Extremities: No Edema Skin: No Rash or Ulcers Neurological: Alert and Oriented x 3, NL Muscle Strength and Tone Nutrition: Taking PO's Result Diagrams: 06/09/19 07:55 06/09/19 07:55 Assess/Plan/Problems-Billing Assessment: Ms. Wolff is a 78 yo F with a PMH severe aortic stenosis and likely ongoing lower GI bleeding of who was admitted on 06/08/19 with chest pain. - Patient Problems (1) Chest pain Comment: - Trop 0.03 x 3 - EKG without evidence of ischemia - Reviewed case with cardiology. Given that patient cannot use antiplatets or anticoagulants due to ongoing GI bleeding and anemia, she is not a candidate for cardiac intervention. Therefore there is no indication for stress testing. Recommended that patient follow up with her commercial roofer, Dr Ohara. (2) Aortic stenosis Comment: - Severe noted on echo 04/2019 - Follow up with Dr Ohara (3) Anemia Comment: - Hgb 8.3, stable - Recent history of lower GI bleeding, evaluation ongoing outpatient - Patient has scheduled follow up with Dr Li (4) HTN (hypertension) Comment: - BP well controlled - Continue metoprolol (5) DVT prophylaxis Comment: - Pharmacological prophylaxis contraindicated in the setting of ongoing symptoms of lower GI bleeding - Continue SCDs (6) Full code status Comment: - Jennyfer Almazan (niece) is her HCP. Status and Disposition: Inpatient. Discharge to home.
[2019-06-09 11:50] VITALS: BP 131/55
--- NOTE | 2019-06-09 16:16 | DS ---
CC: Dr. Talavera; Dr. Ohara * [facility] MEDICINE DISCHARGE SUMMARY: DATE OF ADMISSION: 06/08/19 DATE OF DISCHARGE: 06/09/19 PRIMARY CARE PHYSICIAN: Dr. Talavera. THERMAL CUTTER HELPER: Dr. Ohara. ATTENDING PHYSICIAN: Dr. Mata * (dictation provided by Brigette Fitzpatrick NP). PRIMARY DIAGNOSIS: Chest pain. SECONDARY DIAGNOSES: 1. Severe aortic stenosis. 2. Ongoing concern for lower gastrointestinal bleeding. 3. Anemia. 4. Hypertension. 6. Supraventricular tachycardia. 7. Restless legs syndrome. 8. Anxiety. 9. Dyslipidemia. 10. Degenerative disk disease of the spine. PAST SURGICAL HISTORY: Appendectomy. MEDICATIONS AT THE TIME OF DISCHARGE: 1. Pantoprazole 40 mg p.o. q.a.m. 2. Metoprolol succinate ER 25 mg p.o. q.a.m. 3. Ropinirole 2 mg at bedtime. HOSPITAL COURSE: Ms. Wolff is a 78-year-old female with a past medical history of recent concern for GI bleeding, suspected to be ileal in origin with ongoing dark tarry stools with plans for continued evaluation by Dr. Li, and severe aortic stenosis, who presented to the hospital on 06/08/19 with concern for chest pain. Please see the dictated H and P from Oksana Hernandez NP for complete details. In brief, the patient states that she was lying down at night around 10:30 when she noticed pain across her chest. She rated it about a 9/10. She thinks the pain ended by about 3 or 4 o'clock in the morning , prior to arrival. In the emergency room, the patient's first troponin was 0.02. Her first EKG showed concern for some peaked T-waves. Three subsequent followup troponins were all 0.03, and EKG showed T wave resolution and no overt evidence of ischemia. Also, on admission, the patient was noted to be anemic with a hemoglobin of 9. This is in keeping with where her hemoglobin has been throughout since April 2019 when initial GI bleeding was noted. The remainder of her workup was negative including a negative chest x-ray. Ms. Wolff has been chest pain free. We did consider performing a stress test, but given the fact that Ms. Wolff is not a candidate for antiplatelets or anticoagulants, she is not an appropriate candidate for cardiac intervention. Fortunately, her troponins have been negative and her EKG showed mild to no changes. I did discuss the case briefly with Cardiology who concurred that the patient should be discharged to follow up with her health program manager Dr. Ohara. Ms. Wolff again is chest pain free and she will be following up with her health program manager Dr. Ohara and also following with Dr. Li regarding ongoing evaluation and hopefully treatment for her ongoing lower GI bleeding. DISPOSITION: Home. DIET: Low salt, low fat. ACTIVITIES: As tolerated. FOLLOWUP PLAN: 1. Please follow up with Dr. Li and keep your appointment. 2. Please call on Monday for appointment with Dr. Ohara. 3. Please followup with Dr. Talavera per routine after this hospitalization. 4. The patient was encouraged strongly to return to the hospital should she have chest pain, shortness of breath, or any other concerning symptoms. TIME SPENT: Approximately 60 minutes were spent on the discharge of this patient, more than half the time spent with the patient at the bedside reviewing the events leading up to this hospitalization and during this hospitalization, performing the physical examination, and reviewing my plan of care. BRIGETTE FITZPATRICK NP [id number]/[facility] #: [id number] RANDY
== END 2019-06-09 15:03 | disposition home or self-care (01) ==
LOC: ED 04:58 → MEDTELE 09:47
PROVIDERS: ADMIT Hospitalist; ATTEND Internal Medicine
DX: R07.9 Chest pain, unspecified (principal); I35.0 Nonrheumatic aortic (valve) stenosis; K92.2 Gastrointestinal hemorrhage, unspecified; D64.9 Anemia, unspecified; I10 Essential (primary) hypertension; I47.1 Supraventricular tachycardia; G25.81 Restless legs syndrome; F41.9 Anxiety disorder, unspecified; E78.5 Hyperlipidemia, unspecified; M51.34 Other intervertebral disc degeneration, thoracic region; Z79.899 Other long term (current) drug therapy; Z87.891 Personal history of nicotine dependence; E78.00 Pure hypercholesterolemia, unspecified
CPT/HCPCS: 36415; 71045; 80048; 80053; 80061; 83036; 83735; 84439; 84443; 84479; 84484; 85025; 85610; 93005; 96361; 96374; 99285; A9270-GY; G0378; J2405

== ENCOUNTER 2019-07-11 21:27 | Emergency (ER) | payer MEDICARE, MEDICAID ==
--- OUTSIDE RECORDS SUMMARY | 2019-07-11 21:37 | XMS REPORT | Continuity of Care Document ---
:1940 External Reference #:[id number] Author Name Tuan Ohara DO FAC (transmitted by agent of provider Shonda Bingham) Address [address] [place] [address] Care Team Providers Name Role Phone Polly Talavera MD - Family Care Team Information Furniture Repair Technician [phone] Medicine Problems Active Problems Provider Date Cervical spondylosis with myelopathy Joaquin Arboleda M.D. Onset: 06/13/2018 Social History Type Date Description Comments Sex Unknown ETOH Use Currently consumes alcohol Tobacco Use Start: Unknown End: Patient is a former smoker Unknown Recreational Drug Use Denies Drug Use Smoking Status Reviewed: 06/26/19 Patient is a former smoker Exercise Type/Frequency Does not exercise Allergies, Adverse Reactions, Alerts Active Allergies Reaction Severity Comments Date Penicillin 05/09/2018 Medications Active Medications SIG Qnty Indications Ordering Provider Date Metoprolol Succinate 1 by mouth every Unknown ER day 25mg Tablets ER 24HR Ropinirole HCL 1 by mouth @ Unknown 2mg bedtime Tablets [facility] Iron one tab every Unknown 325(65Fe) mg day Tablets [facility] Vitamin B-12 please take one Unknown 1000mcg daily Tablets Tylenol 2 tablets every 4 Unknown 325mg Capsules hours as needed for pain Multi Vitamin 1 by mouth every Unknown Tablets day Vitamin C 1 by mouth every Unknown 500mg Tablets day Immunizations Description No Information Available Vital Signs Date Vital Result Comment 06/26/2019 3:33pm Height 62 inches 5'2" Weight 152.00 lb BP Systolic Sitting 130 mmHg lue reg cuff BP Diastolic Sitting 68 mmHg lue reg cuff BP Systolic Standing 128 mmHg lue reg cuff BP Diastolic Standing 68 mmHg lue reg cuff Respiratory Rate 14 /min BMI (Body Mass Index) 27.8 kg/m2 Ejection Fraction 65-70% echo. 05/12/19 05/23/2019 2:25pm Height 62 inches 5'2" Weight 151.00 lb with shoes Heart Rate 62 /min BP Systolic Sitting 126 mmHg Ra BP Diastolic Sitting 72 mmHg Ra BP Systolic Standing 122 mmHg Ra BP Diastolic Standing 76 mmHg Ra BMI (Body Mass Index) 27.6 kg/m2 Ejection Fraction 65-70% Echo 05/12/19 Results Test Acquired Date Facility Test Result H/L Range Note CBC Auto 06/20/2019 [facility] White Blood 5.6 10^3/uL Normal 3.5-10.[address] [place] [address] [phone] Red Blood Count 3.43 10^6/uL Low 3.70-4.87 Hemoglobin 9.7 g/dL Low 12.0-16.0 Hematocrit 29 % Low 35-47 Mean Corpuscular Volume 85 fL Normal 80-97 Mean Corpuscular Hemoglobin 28 pg Normal 27-31 Mean Corpuscular HGB Conc 33 g/dL Normal 31-36 Red Cell Distribution Width 19 % High 10-15 Platelet Count 358 10^3/uL Normal 150-450 Mean Platelet Volume 6.7 fL Low 7.4-10.4 Abs Neutrophils 3.7 10^3/uL Normal 1.5-7.7 Abs Lymphocytes 1.3 10^3/uL Normal 1.0-4.8 Abs Monocytes 0.4 10^3/uL Normal 0-0.8 Abs Eosinophils 0.1 10^3/uL Normal 0-0.6 Abs Basophils 0.0 10^3/uL Normal 0-0.2 Abs Nucleated RBC 0.0 10^3/uL Granulocyte % 66.2 % Lymphocyte % 23.2 % Monocyte % 7.5 % Eosinophil % 2.4 % Basophil % 0.7 % Nucleated Red Blood Cells % 0.0 Comp Metabolic 06/20/2019 [facility] Sodium 137 mmol/L Normal 135-[address] [place] [address] [phone] Potassium 3.4 mmol/L Low 3.5-5.0 Chloride 105 mmol/L Normal 101-111 Co2 Carbon Dioxide 26 mmol/L Normal 22-32 Anion Gap 6 mmol/L Normal 2-11 Glucose 97 mg/dL Normal 70-100 Blood Urea Nitrogen 18 mg/dL Normal 6-24 Creatinine 0.88 mg/dL Normal 0.51-0.95 BUN/Creatinine Ratio 20.5 High 8-20 Calcium 8.9 mg/dL Normal 8.6-10.3 Total Protein 6.8 g/dL Normal 6.4-8.9 Albumin 3.9 g/dL Normal 3.2-5.2 Globulin 2.9 g/dL Normal 2-4 Albumin/Globulin Ratio 1.3 Normal 1-3 Total Bilirubin 0.40 mg/dL Normal 0.2-1.0 Alkaline Phosphatase 75 U/L Normal 34-104 Alt 12 U/L Normal 7-52 Ast 19 U/L Normal 13-39 Egfr Non- 62.1 >60 Egfr 75.2 >60 1 Laboratory test finding 06/20/2019 [facility] LDH 172 U/L Normal 140-[address] [place], [place] [id number] [phone] Ferritin 39.1 ng/mL Normal 11-307 Iron & Iron Binding 06/20/2019 [facility] Iron 57 g/dL Normal 50-212 [address] [place], [place] [id number] [phone] Unsaturated Iron Binding < 485 g/dL Total Iron Binding Capacity 500 g/dL High 250-450 Transferrin 357 mg/dL Normal 203-362 % Iron Saturation 11 % Low 15-55 Laboratory 06/20/2019 [facility] Vitamin B12 224 Normal 180- 914 2 test finding pg/[place] [address] [phone] Von Willebrand 06/20/2019 [facility] Coagulation F 223 % Abnormal 55 - 200 3 Disease 101 [place] [address] [phone] von Willebrand Factor Antigen 194 % 55 - 200 4 von Willebrand Factor Activity 189 % 55 - 200 5 von Willebrand Disease Interpr See Comment 6 Laboratory test 06/20/2019 [facility] Haptoglobin 162 mg/dL 30 - [address] [place] [address] [phone] Protein 06/20/2019 [facility] Total 6.5 g/dL 6.3 - Electrophoresis [address] Protein(Pep) 7.9 [place] [address] [phone] Albumin 3.2 g/dL Abnormal 3.4-4.7 Alpha-1 Globulin 0.3 g/dL 0.1-0.3 Alpha-2 Globulin 1.0 g/dL 0.6-1.0 Beta Globulin 1.0 g/dL 0.7-1.2 Gamma Globulin 1.0 g/dL 0.6-1.6 Albumin/Globulin Ratio 0.99 Impression See Comment 8 1 Because ethnic data is not always readily available, this report includes an eGFR for both -Americans and non- Americans. The National Kidney Disease Education Program (NKDEP) does not endorse the use of the MDRD equation for patients that are not between the ages of 18 and 70, are , have extremes of body size, muscle mass, or nutritional status, or are non- or non-. According to the National Kidney Foundation, irrespective of diagnosis, the stage of the disease is based on the level of kidney function: Stage Description GFR(mL/min/1.73 m(2)) 1 Kidney damage with normal or decreased GFR 90 2 Kidney damage with mild decrease in GFR 60-89 3 Moderate decrease in GFR 30-59 4 Severe decrease in GFR 15-29 5 Kidney failure <15 (or dialysis) 2 Normal Range 180 to 914 Indeterminate Range 145 to 180 Deficient Range <145 3 ADDITIONAL INFORMATION This test has been modified from the masticator's instructions. Its performance characteristics were determined by [facility] in a manner consistent with CLIA requirements. This test has not been cleared or approved by the U.S. Food and Drug Administration. 4 ADDITIONAL INFORMATION This test has been modified from the masticator's instructions. Its performance characteristics were determined by [facility] in a manner consistent with CLIA requirements. This test has not been cleared or approved by the U.S. Food and Drug Administration. 5 ADDITIONAL INFORMATION This test has been modified from the masticator's instructions. Its performance characteristics were determined by [facility] in a manner consistent with CLIA requirements. This test has not been cleared or approved by the U.S. Food and Drug Administration. Test Performed by: [place] [id number] Monitor Car Operator: Joselito Ron M.D. Ph.D.; CLIA# [id number] IMPRESSION: No laboratory evidence of von Willebrand disease (VWD). COMMENTS: Normal or elevated factor VIII coagulant activity and/or von Willebrand factor (VWF) antigen and/or VWF activity [latex immunoassay] provide no evidence for von Willebrand disease (VWD). NOTE: VWF antigen and/or VWF latex immunoassay activity and/or factor VIII may be increased above baseline levels by acute or chronic inflammation, stress or adrenergic stimuli, or estrogen and oral contraceptive (OCP) therapy, liver disease or recent infusion of plasma, cryoprecipitate, desmopressin (DDAVP) or VWF concentrates and mask the diagnosis of mild von Willebrand disease (VWD). Note: Apparently normal individuals of blood group "O" may have somewhat lower factor VIII and von Willebrand factor (VWF) than individuals of other blood groups, such that (for example) those of group "O" may have VWF antigen as low as 40-50%, whereas normals of nongroup "O" generally have VWF antigen above 60-70%. Suggest clinical correlation. 7 Test Performed by: [place] [address] Monitor Car Operator: Joselito Ron M.D. Ph.D.; CLIA# [id number] RESULT: No apparent monoclonal protein on serum electrophoresis. Test Performed by: [place] [address] Monitor Car Operator: Joselito Ron M.D. Ph.D.; CLIA# [id number] Procedures Date Code Description Status 06/26/2019 19936 EKG Tracing & Interpretation Completed 05/23/2019 61014 EKG Tracing & Interpretation Completed 05/12/2019 27092 ECHO Transthorasic Realtime 2D W Doppler & Color Flow Hosp Completed 05/11/2019 86930 EKG, Interpretation Only Completed Medical Devices Description No Information Available Encounters Type Date Location Provider Dx Diagnosis Office Visit 06/09/2019 [facility] Brigette Fitzpatrick N.P. R07.9 Chest pain, 10:36a juan Bolanos unspecified Hospitalists I35.0 Nonrheumatic aortic (valve) stenosis D64.9 Anemia, unspecified I10 Essential (primary) hypertension I47.1 Supraventricular tachycardia G25.81 Restless legs syndrome F41.9 Anxiety disorder, unspecified E78.5 Hyperlipidemia, unspecified M51.36 Other intervertebral disc degeneration, lumbar region Office Visit 06/08/2019 [facility] Oksana R07.9 Chest pain, 10:35a juan Bolanos, FOLDER MACHINE OPERATOR unspecified Hospitalists D62 Acute posthemorrhagic anemia I10 Essential (primary) hypertension G25.81 Restless legs syndrome Office Visit 05/23/2019 2:40p [facility] Tuan S. I35.0 Nonrheumatic Of Feather Mixer Ohara, DO aortic (valve) FACC stenosis K92.2 Gastrointestinal hemorrhage, unspecified Office Visit 05/16/2019 [facility] K92.2 Gastrointestinal 11:11a juan Bolanos MD hemorrhage, Hospitalists unspecified I35.0 Nonrheumatic aortic (valve) stenosis I10 Essential (primary) hypertension G25.81 Restless legs syndrome Office Visit 05/15/2019 [facility] K92.2 Gastrointestinal 11:10a juan Bolanos MD hemorrhage, Hospitalists unspecified I35.0 Nonrheumatic aortic (valve) stenosis I10 Essential (primary) hypertension Office Visit 05/14/2019 [facility] K92.2 Gastrointestinal 11:10a juan Bolanos MD hemorrhage, Hospitalists unspecified I35.0 Nonrheumatic aortic (valve) stenosis I10 Essential (primary) hypertension Office Visit 05/13/2019 11:44a [facility] Tuan S. I35.0 Nonrheumatic Of Feather Mixer Ohara, DO aortic (valve) FACC stenosis K92.2 Gastrointestinal hemorrhage, unspecified Office Visit 05/13/2019 [facility] K92.2 Gastrointestinal 11:10a juan Bolanos MD hemorrhage, Hospitalists unspecified I35.0 Nonrheumatic aortic (valve) stenosis I10 Essential (primary) hypertension Office 05/12/2019 [facility] K92.2 Gastrointestinal Visit 11:09a juan Bolanos M.D. hemorrhage, Hospitalists unspecified I35.0 Nonrheumatic aortic (valve) stenosis R01.1 Cardiac murmur, unspecified I10 Essential (primary) hypertension Office 05/11/2019 [facility] K92.2 Gastrointestinal Visit 11:09a juan Bolanos M.D. hemorrhage, Hospitalists unspecified I10 Essential (primary) hypertension R01.1 Cardiac murmur, unspecified Office Visit 05/10/2019 2:35p [facility] Tuan CatherineMyranda I35.0 Nonrheumatic Of Feather Mixer Ohara, DO aortic (valve) FAC stenosis K92.2 Gastrointestinal hemorrhage, unspecified D64.9 Anemia, unspecified Office 05/10/2019 [facility] K92.2 Gastrointestinal Visit 11:08a juan Bolanos M.D. hemorrhage, Hospitalists unspecified I10 Essential (primary) hypertension Office Visit 05/09/2019 [facility] K92.2 Gastrointestinal 11:07a juan Bolanos M.D. hemorrhage, Hospitalists unspecified I10 Essential (primary) hypertension Assessments Date Code Description Provider 06/26/2019 I35.0 Nonrheumatic aortic (valve) stenosis Tuan Ohara DO [facility] 06/26/2019 D64.9 Anemia, unspecified Tuan Ohara DO FAC 06/09/2019 R07.9 Chest pain, unspecified Brigette Fitzpatrick, N.P. 06/09/2019 I35.0 Nonrheumatic aortic (valve) stenosis Brigette Fitzpatrick, N.P. 06/09/2019 D64.9 Anemia, unspecified Brigette Fitzpatrick, N.P. 06/09/2019 I10 Essential (primary) hypertension Brigette Fitzpatrick, N.P. 06/09/2019 I47.1 Supraventricular tachycardia Brigette Fitzpatrick, N.P. 06/09/2019 G25.81 Restless legs syndrome Brigette Fitzpatrick, N.P. 06/09/2019 F41.9 Anxiety disorder, unspecified Brigette Fitzpatrick, N.P. 06/09/2019 E78.5 Hyperlipidemia, unspecified Brigette Fitzpatrick N.P. 06/09/2019 M51.36 Other intervertebral disc degeneration, Brigette Fitzpatrick, N.P. lumbar region 06/08/2019 R07.9 Chest pain, unspecified Oksana Ernstchris, FOLDER MACHINE OPERATOR 06/08/2019 D62 Acute posthemorrhagic anemia Oksana Dukeschris, FOLDER MACHINE OPERATOR 06/08/2019 I10 Essential (primary) hypertension Oksana Hernandez, FOLDER MACHINE OPERATOR 06/08/2019 G25.81 Restless legs syndrome Oksanapatty Dukeschris, FOLDER MACHINE OPERATOR 05/23/2019 I35.0 Nonrheumatic aortic (valve) stenosis Tuan Ohara, DO [facility] 05/23/2019 K92.2 Gastrointestinal hemorrhage, unspecified Tuan Ohara, DO [facility] 05/16/2019 K92.2 Gastrointestinal hemorrhage, unspecified Ludivina Meade [...] Essential (primary) hypertension Ludivina Meade MD 05/13/2019 I35.0 Nonrheumatic aortic (valve) stenosis Tuan Ohara, DO [facility] 05/13/2019 K92.2 Gastrointestinal hemorrhage, unspecified Tuan Ohara, DO [facility] 05/13/2019 K92.2 Gastrointestinal hemorrhage, unspecified Ludivina Meade MD 05/13/2019 I35.0 Nonrheumatic aortic (valve) stenosis Ludivina Meade MD 05/13/2019 I10 Essential (primary) hypertension Ludivina Meade MD 05/12/2019 R01.1 Cardiac murmur, unspecified Tuan Ohara DO FAC 05/12/2019 K92.2 Gastrointestinal hemorrhage, unspecified David Corado M.D. 05/12/2019 I35.0 Nonrheumatic aortic (valve) stenosis David Corado M.D. 05/12/2019 R01.1 Cardiac murmur, unspecified David Corado M.D. 05/12/2019 I10 Essential (primary) hypertension David Corado M.D. 05/11/2019 R94.31 Abnormal electrocardiogram [ECG] [EKG] Tuan Ohara DO FAC 05/11/2019 K92.2 Gastrointestinal hemorrhage, unspecified David Corado M.D. 05/11/2019 I10 Essential (primary) hypertension David Corado M.D. 05/11/2019 R01.1 Cardiac murmur, unspecified David Corado M.D. 05/10/2019 I35.0 Nonrheumatic aortic (valve) stenosis Tuan Ohara DO [facility] 05/10/2019 K92.2 Gastrointestinal hemorrhage, unspecified Tuan Ohara DO [facility] 05/10/2019 K92.2 Gastrointestinal hemorrhage, unspecified David Corado M.D. 05/10/2019 D64.9 Anemia, unspecified Tuan Ohara DO FACC 05/10/2019 I10 Essential (primary) hypertension David Corado M.D. 05/09/2019 K92.2 Gastrointestinal hemorrhage, unspecified Rosy Tate M.D. 05/09/2019 I10 Essential (primary) hypertension Rosy Tate M.D. 12/31/2018 R51 Headache Tuan Perez MD, FACS Plan of Treatment Future Appointment(s):10/31/2019 9:40 am - uTan Ohara DO FACC at [facility]10/28/2019 9:00 am - Traveling ECHO 2 at [facility]06/26/2019 - Tuan Ohara DO FACCI35.0 Nonrheumatic aortic (valve) stenosisNew Orders:Echocardiogram, Ordered: 06/26/19Comments:Follow up:Schedule echo October 2019 with f/u euqhaoshlmZ79.9 Anemia, unspecified Functional Status Description No Information Available Mental Status Description No Information Available Referrals Description No Information Available
--- OUTSIDE RECORDS SUMMARY | 2019-07-11 21:38 | XMS REPORT | Continuity of Care Document ---
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 Problems Description No Information Available Social History Type Date Description Comments Sex Unknown Tobacco Use Start: Unknown End: Unknown Patient is a former smoker Smoking Status Reviewed: 06/14/19 Patient is a former smoker Allergies, Adverse Reactions, Alerts Active Allergies Reaction Severity Comments Date IV Contrast 06/14/2019 Medications Active Medications SIG Qnty Indications Ordering Provider Date Diphenhydramine HCL 1/2 Tablet prn Yousif Li DO 06/14/2019 (Sleep) 50mg Tablets Pantoprazole Sodium Take One Tablet Unknown 40mg By Mouth Every Tablets DR Day Ropinirole HCL Take One Tablet Unknown 2mg Tablets By Mouth AT Bedtime Metoprolol Succinate ER Mickey Manzano, 25mg MD Tablets ER 24HR Cetirizine HCL 1 by mouth every Unknown 10mg Tablets day Immunizations Description No Information Available Vital Signs Date Vital Result Comment 06/14/2019 12:56pm Height 62 inches 5'2" Weight 150.00 lb BP Systolic 138 mmHg BP Diastolic 70 mmHg Heart Rate 76 /min BMI (Body Mass Index) 27.4 kg/m2 Results Test Acquired Date Facility Test Result H/L Range Note CBC Auto Diff 06/20/2019 [facility] White Blood 5.6 10^3/uL Normal 3.5-10.8 Count Red Blood Count 3.43 10^6/uL Low 3.70-4.87 [...] Red Blood Cells % 0.0 Comp Metabolic Panel 06/20/2019 [facility] Sodium 137 mmol/L Normal 135-145 Potassium 3.4 mmol/L Low 3.5-5.0 Chloride 105 [...] 75.2 >60 1 Laboratory test finding 06/20/2019 [facility] LDH 172 U/L Normal 140-271 Ferritin 39.1 ng/mL Normal 11-307 Iron & Iron Binding Capacity 06/20/2019 [facility] Iron 57 g/dL Normal 50-212 Unsaturated Iron Binding < 485 g/dL Total Iron Binding Capacity 500 g/dL High 250-450 Transferrin 357 mg/dL Normal 203-362 % Iron Saturation 11 % Low 15-55 Laboratory test 06/20/2019 [facility] Vitamin B12 224 pg/mL Normal 180-914 2 finding Von Willebrand 06/20/2019 [facility] Coagulation F VIII 223 % Abnormal 55 - 200 3 Disease Profile Activity von Willebrand Factor Antigen 194 % 55 - 200 4 von Willebrand Factor Activity 189 % 55 - 200 5 von Willebrand Disease Interpr See Comment 6 Laboratory test finding 06/20/2019 [facility] Haptoglobin 162 mg/dL 30 - 200 7 Protein Electrophoresis 06/20/2019 [facility] Total Protein(Pep) 6.5 g/dL 6.3 - 7.9 Albumin 3.2 g/dL Abnormal 3.4-4.7 Alpha-1 Globulin [...] This test has been modified from the candy mixer's instructions. Its performance characteristics were determined by [facility] in a manner consistent with CLIA requirements. This test has not been cleared or approved by the U.S. Food and Drug Administration. 4 ADDITIONAL INFORMATION This test has been modified from the candy mixer's instructions. Its performance characteristics were determined by [facility] in a manner consistent with CLIA requirements. This test has not been cleared or approved by the U.S. Food and Drug Administration. 5 ADDITIONAL INFORMATION This test has been modified from the candy mixer's instructions. Its performance characteristics were determined by [facility] in a manner consistent with CLIA requirements. This test has not been cleared or approved by the U.S. Food and Drug Administration. Test Performed by: [facility] - [address] [address] County Administrator: Joselito Ron M.D. Ph.D.; CLIA# [id number] IMPRESSION: No laboratory evidence of von [...] Suggest clinical correlation. 7 Test Performed by: [facility] [place] [facility] [place] [address] [place] [address] County Administrator: Joselito Ron M.D. Ph.D.; CLIA# [id number] RESULT: No apparent monoclonal protein on serum electrophoresis. Test Performed by: [facility] - [facility] [place] [address] [place] [address] County Administrator: Joselito Ron M.D. Ph.D.; IA# [id number] Procedures Date Code Description Status 05/10/2019 60030 Moderate Sedation Services; Same Phys Each Additional 15 Completed Mins 05/10/2019 04884 Moderate Sedation Services; Same Phys Each Additional 15 Completed Mins 05/10/2019 38719 Moderate Sedation Services; Same Phys Each Additional 15 Completed Mins 05/10/2019 78371 Moderate Sedation Services; Same Phys Each Additional 15 Completed Mins 05/10/2019 93758 Moderate Sedation Services; Same Phys Each Additional 15 Completed Mins 05/10/2019 41270 Colonoscopy Completed 05/10/2019 61582 EGD+Control Of Bleeding Any Method Completed 05/10/2019 45609 EGD+Biopsy Single Or Multiple Completed Medical Devices Description No Information Available Encounters Type Date Location Provider Dx Diagnosis Office Visit 06/14/2019 Gastroenterology Yousif Li D50.0 Iron deficiency 1:00p [facility] anemia secondary to blood loss (chronic) I35.0 Nonrheumatic aortic (valve) stenosis Assessments Date Code Description Provider 06/14/2019 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) 06/14/2019 I35.0 Nonrheumatic aortic (valve) stenosis Yousif Li DO 05/16/2019 D50.9 Iron deficiency anemia, unspecified Yousif Li, 05/13/2019 D50.9 Iron deficiency anemia, unspecified Nicko Hobbs MD 05/11/2019 D50.9 Iron deficiency anemia, unspecified Yousif Li, 05/10/2019 K29.71 Gastritis, unspecified, with bleeding Yousif Li DO 05/10/2019 K92.1 Melena Yousif Li DO Plan of Treatment Future Appointment(s):12/13/2019 1:30 pm - Yousif Li DO at Gastroenterology [facility]06/14/2019 - Yousif Li 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
--- OUTSIDE RECORDS SUMMARY | 2019-07-11 21:38 | XMS REPORT | Continuity of Care Document ---
:1940 External Reference #:[id number] Author Name Angie Mitchell Care Team Providers Name Role Phone Polly Talavera MD - Family Care Team Information Cable Swager [phone] Medicine Problems Active Problems Provider Date Cervical [...] Result H/L Range Note Laboratory test 12/18/2018 [facility] Surgical SEE RESULT [address] [place] [address] [phone] 1 SEE RESULT BELOW Name: JOSSIE WOLFF : [address]: Tuan Perez MD Acct: [id number] Unit: [id number] AGE: 78 Location: [facility] Re12/18/18 SEX: F Status: REG REF SPEC: [id number] MIAH: 12/18/18-[address] [facility] [address]: Tuan Perez MD REQ: [id number] RECD: 12/18/18 STATUS: SOUT _ ORDERED: LEVEL 4 COMMENTS: [id number] FINAL DIAGNOSIS Temporal artery, right, biopsy: -- [...] 1322 END OF REPORT DEPARTMENT OF PATHOLOGY, [address] [place] [address] Alejandro Almonte M.D. Director [facility] # [id number] Procedures Date Code Description Status 05/23/2019 57218 EKG Tracing & Interpretation Completed 05/12/2019 61772 ECHO Transthorasic Realtime 2D W Doppler & Color Flow Hosp Completed 05/11/2019 50842 EKG, Interpretation Only Completed 12/18/2018 58256 Ligation Or Biopsy Temporal Artery Completed Medical Devices Description No Information Available Encounters Type Date Location Provider Dx Diagnosis Office Visit 05/23/2019 [facility] Tuan Ohara, I35.0 Nonrheumatic aortic 2:40p [employer] DO FACC (valve) stenosis K92.2 Gastrointestinal hemorrhage, unspecified Office Visit 05/16/2019 [facility] Ludivina K92.2 Gastrointestinal 11:11a juan Bolanos MD hemorrhage, Hospitalists unspecified I35.0 Nonrheumatic aortic (valve) stenosis I10 Essential (primary) hypertension G25.81 Restless legs syndrome Office Visit 05/15/2019 [facility] Ludivina K92.2 Gastrointestinal 11:10a juan Bolanos MD hemorrhage, Hospitalists unspecified I35.0 Nonrheumatic aortic (valve) stenosis I10 Essential (primary) hypertension Office Visit 05/14/2019 [facility] Ludivina K92.2 Gastrointestinal 11:10a juan Bolanos MD hemorrhage, Hospitalists unspecified I35.0 Nonrheumatic aortic (valve) stenosis I10 Essential (primary) hypertension Office Visit 05/13/2019 11:44a [facility] Tuan S. I35.0 Nonrheumatic [employer] Ohara, DO aortic (valve) FACC stenosis K92.2 Gastrointestinal hemorrhage, unspecified Office Visit 05/13/2019 [facility] K92.2 Gastrointestinal 11:10a juan Bolanos MD hemorrhage, Hospitalists unspecified I35.0 Nonrheumatic aortic (valve) stenosis I10 Essential (primary) hypertension Office 05/12/2019 [facility] K92.2 Gastrointestinal Visit 11:09a juan Bolanos M.D. hemorrhage, Hospitalists unspecified I35.0 Nonrheumatic aortic (valve) stenosis R01.1 Cardiac murmur, unspecified I10 Essential (primary) hypertension Office 05/11/2019 [facility] K92.2 Gastrointestinal Visit 11:09a juan Bolanos M.D. hemorrhage, Hospitalists unspecified I10 Essential (primary) hypertension R01.1 Cardiac murmur, unspecified Office Visit 05/10/2019 2:35p [facility] Tuan S. I35.0 Nonrheumatic [employer] Ohara, DO aortic (valve) FACC stenosis K92.2 Gastrointestinal hemorrhage, unspecified D64.9 Anemia, unspecified Office 05/10/2019 [facility] K92.2 Gastrointestinal Visit 11:08a juan Bolanos M.D. hemorrhage, Hospitalists unspecified I10 Essential (primary) hypertension Office Visit 05/09/2019 [facility] K92.2 Gastrointestinal 11:07a juan Bolanos M.D. hemorrhage, Hospitalists unspecified I10 Essential (primary) hypertension Assessments Date Code Description Provider 05/23/2019 I35.0 Nonrheumatic aortic (valve) stenosis Tuan Ohara, DO FAC 05/23/2019 K92.2 Gastrointestinal hemorrhage, unspecified Tuan Ohara DO FAC 05/16/2019 K92.2 Gastrointestinal hemorrhage, unspecified Lud[place]ina Meade MD 05/16/2019 I35.0 Nonrheumatic aortic (valve) stenosis Ludivina Meade MD 05/16/2019 I10 Essential (primary) hypertension Ludivina Meade MD 05/16/2019 G25.81 Restless legs syndrome Ludivina eMade MD 05/15/2019 K92.2 Gastrointestinal hemorrhage, unspecified Ludivina Meade MD 05/15/2019 I35.0 Nonrheumatic aortic (valve) stenosis Ludivina Meade MD 05/15/2019 I10 Essential (primary) hypertension Ludivina Meade MD 05/14/2019 K92.2 Gastrointestinal hemorrhage, unspecified Ludivina Meade MD 05/14/2019 I35.0 Nonrheumatic aortic (valve) stenosis Ludivina Meade MD 05/14/2019 I10 Essential (primary) hypertension Ludivina Meade MD 05/13/2019 I35.0 Nonrheumatic aortic (valve) stenosis Tuan Ohara, DO [facility] 05/13/2019 K92.2 Gastrointestinal hemorrhage, unspecified Tuan Ohara, DO [facility] 05/13/2019 K92.2 Gastrointestinal hemorrhage, unspecified Ludivina Meade MD 05/13/2019 I35.0 Nonrheumatic aortic (valve) stenosis Ludivina Meade MD 05/13/2019 I10 Essential (primary) hypertension Ludivina Meade MD 05/12/2019 R01.1 Cardiac murmur, unspecified Tuan Oahra, DO [facility] 05/12/2019 K92.2 Gastrointestinal hemorrhage, unspecified David Corado M.D. 05/12/2019 I35.0 Nonrheumatic aortic (valve) stenosis David Corado M.D. 05/12/2019 R01.1 Cardiac murmur, unspecified David Corado M.D. 05/12/2019 I10 Essential (primary) hypertension David Corado M.D. 05/11/2019 R94.31 Abnormal electrocardiogram [ECG] [EKG] Tuan Ohara, DO [facility] 05/11/2019 K92.2 Gastrointestinal hemorrhage, unspecified David Corado M.D. 05/11/2019 I10 Essential (primary) hypertension David Corado M.D. 05/11/2019 R01.1 Cardiac murmur, unspecified David Corado M.D. 05/10/2019 I35.0 Nonrheumatic aortic (valve) stenosis Tuan Ohara, DO [facility] 05/10/2019 K92.2 Gastrointestinal hemorrhage, unspecified Tuan Ohara, DO [facility] 05/10/2019 K92.2 Gastrointestinal hemorrhage, unspecified David Corado M.D. 05/10/2019 D64.9 Anemia, unspecified Tuan Ohara, DO [facility] 05/10/2019 I10 Essential (primary) hypertension David Corado M.D. 05/09/2019 K92.2 Gastrointestinal hemorrhage, unspecified Rosy Tate M.D. 05/09/2019 I10 Essential (primary) hypertension Rosy Tate M.D. 12/31/2018 R51 Headache Tuan Perez MD, FACS 12/18/2018 R51 Headache Tuan Perez MD, FACS Plan of Treatment 05/23/2019 [facility] Nonrheumatic aortic (valve) stenosisNew Orders:Echocardiogram, Ordered: 05/23/19Follow up:f/u 6 months with echo prior to lrrpiP45.2 Gastrointestinal hemorrhage, unspecified Functional Status Description No Information Available Mental Status Description No Information Available Referrals Description No Information Available
--- OUTSIDE RECORDS SUMMARY | 2019-07-11 21:38 | XMS REPORT | Summary of Care ---
:1940 Author Organization [facility] Address [address] [place] [address] Care Team Providers Name Role Phone Mario Hernandez MD Unavailable Unavailable Polly Talavera Primary Care Provider Reason for Visit Reason Comments Transitional Care Management Discharged [facility] [place]. Chest Pain Had chest pain. Leg Pain Lower leg cramps and sharp pains. Edema Lower leg swelling and her fingers swelling since discharged. Encounter Details Date Type Department Care Team Description 06/13/2019 Office Visit [place] [facility] Talavera chest pain (Primary Dx); Traci Matias MD Other iron deficiency anemia; [address] RLS (restless legs syndrome); [place] [address] Aortic valve stenosis, etiology of cardiac valve disease unspecified [phone] Allergies Active Allergy Reactions Severity Noted Date Comments Ct Dye Dermatologic Reaction 11/16/2009 Penicillins Other 06/09/2010 documented as of this encounter (statuses as of 06/13/2019) Medications Medication Sig Dispensed Refills Start Date End Date Status Multiple Take 1 Tab by 0 Active Vitamins-Minerals (ONE mouth DAILY. DAILY WOMENS 50+) Oral Tab Nystatin 099620 UNIT/GM 0.0001 g by Apply 60 g 4 05/09/2018 Active Apply externally Powder externally route TWICE DAILY. metoprolol succinate Take 1 Tab by 90 Tab 3 09/24/2018 Active (TOPROL XL) 25 MG Oral mouth DAILY. TABLET SR 24 HRIndications: Essential hypertension cetirizine (ZYRTEC) 10 Take 1 Tab by [...] 40 MG Oral Tab EC mouth DAILY. Acetaminophen (TYLENOL) Take by mouth. 0 Active 325 MG Oral Cap ropinirole (REQUIP) 2 Take 1 Tab by 30 Tab 1 06/10/2019 Active MG Oral Tab mouth EVERY BEDTIME. gabapentin (NEURONTIN) Take 1-3 Caps by 90 Cap 0 06/13/2019 Active 100 MG Oral Cap mouth EVERY BEDTIME. documented as of this encounter (statuses as of 06/13/2019) Active Problems Problem Noted Date Restless leg syndrome 06/28/2018 Hearing loss of right ear 02/10/2015 Chronic insomnia 02/10/2015 Osteoporosis 11/02/2012 Overview: FRAX 4.9/17% based on DEXA 07/02 H/O: hysterectomy 07/09/2010 Overview: Age 21 Essential hypertension SVT (supraventricular tachycardia) Overview: briefly on metoprol by prior provider for "angina" symptoms Mixed hyperlipidemia Overview: LDL 161, HDL 88 documented as of this encounter (statuses as of 06/13/2019) Resolved Problems Problem Noted Date Resolved Date Shoulder pain, right 04/02/2014 02/10/2015 Anxiety 02/10/2015 documented as of this encounter (statuses as of 06/13/2019) Immunizations Name Administration Dates Next Due Influenza [...] Sign Reading Time Taken Comments Blood Pressure 122/62 06/13/2019 4:01 PM EST Pulse 58 06/13/2019 4:01 PM EST Temperature 37 06/13/2019 4:01 PM EST C (98.6 F) Respiratory Rate - - Oxygen Saturation 98% 06/13/2019 4:01 PM EST Inhaled Oxygen Concentration - - Weight 68.9 kg (152 lb) 06/13/2019 4:01 PM EST Height - - Body Mass Index 27.8 06/04/2019 2:19 PM EST documented in this encounter Patient Instructions Patient InstructionsPolly Talavera MD - 06/13/2019 4:00 PM EST1. Stop Requip 2. Take Gabapentin 100 mg at the bed time for several days. If still have leg cramps - increase to 200 mg ( 2 capsules of 100 mg) for several days and than - to 300 mg ( 3 capsules of 100 mg ) if needed 3. Follow up in 1 week and as needed documented in this encounter Progress Notes Polly Talavera MD - 06/13/2019 4:00 PM EST Patient: Estelle Wolff Date of Service: 06/13/2019 Subjective: Estelle Wolff is a 78-y.o. female who presents for Chief Complaint Patient presents with Transitional Care Management Discharged [facility] 06/09/19. Chest Pain Had chest pain. Leg Pain Lower leg cramps and sharp pains. Edema Lower leg swelling and her fingers swelling since discharged. TCM Statement. Review of the hospitalization: I am seeing for transition of care following hospitalization. The date of discharge was: 06/09/19 The discharge diagnosis was Chest pain. I reviewed the discharge summary, discharge instructions, [...] of the diagnosis and plan of care. Specific education that was provided today: Patient Instructions 1. Stop Requip 2. Take Gabapentin 100 mg at the bed time for several days. If still have leg cramps - increase to 200 mg ( 2 capsules of 100 mg) for several days and than - to 300 mg ( 3 capsules of 100 mg ) if needed 3. Follow up in 1 week and as needed The current and discharge medications were reconciled by me, today The source document was hospital discharge summary Patient presented to [facility] on 06/08/19 with complains of severe mid sternal chest pain that woke herup in the middle of the night By the time she arrived to the ER - the pain resolved. Patient was admitted to the Hospital overnight Troponin - borderline elevated : 0.03, 0.02 EKG: no acute findings Stress test was considered, but not done due to a patient not being a candidate for antiplatelet therapy (recent GI bleeding) Patient was discharged home without treatment change She has appointment with GI tomorrow and cardiology in 2 weeks No chest pains since discharge Has history of RLS. Requip was increased recently. Continues to complain of bilateral legs cramps and burning at rest Also noticed some ankle swelling at the end of the day Past Medical History: Diagnosis Date Advanced directives, [...] restarted November 2010 Outpatient Medications as of 06/13/2019 Medication Sig Dispense Refill Acetaminophen (TYLENOL) 325 MG Oral Cap Take by mouth. cetirizine (ZYRTEC) 10 MG Oral Tab Take 1 Tab by mouth DAILY. 30 Tab 1 diphenhydrAMINE (BENADRYL ALLERGY) 25 MG Oral Tab Take 25 mg by mouth EVERY FOUR HOURS NEEDED (pruritis). 60 Tab 1 ferrous sulfate 325 (65 Fe) MG Oral Tab Take 325 mg by mouth DAILY. metoprolol succinate (TOPROL XL) 25 MG Oral TABLET SR 24 HR Take 1 Tab by mouth DAILY. 90 Tab3 Multiple Vitamins-Minerals (ONE DAILY WOMENS 50+) Oral Tab Take 1 Tab by mouth DAILY. Nystatin 062278 UNIT/GM Apply externally Powder 0.0001 g by Apply externally route TWICE DAILY. 60 g 4 pantoprazole (PROTONIX) 40 MG Oral Tab EC Take 1 Tab by mouth DAILY. 30 Tab 1 ropinirole (REQUIP) 2 MG Oral Tab Take 1 Tab by mouth EVERY BEDTIME. 30 Tab 1 No current facility-administered medications on file as of 06/13/2019. Allergies Allergen Reactions Iv Contrast [Ct Dye] Dermatologic Reaction Penicillins Other Review of Systems: All remaining review of systems was negative. Objective: BP 122/62 Pulse 58 Temp 98.6 F (37 C) Wt 152 lb (68.9 kg) SpO2 98% BMI 27.8 kg/m2 GENERAL: alert, fatigued THROAT: lips, mucosa, and tongue normal: teeth and gums normal NECK: supple, symmetrical, trachea midline and no adenopathy LUNGS: clear to auscultation bilaterally HEART: regular rate and rhythm, systolic murmur EXTREMITIES: varicose veins noted, no significant edema ICD-9-CM ICD-10-CM 1. Other chest pain Follow with cardiology 786.59 R07.89 2. Other iron deficiency anemia 280.8 D50.8 CBC WITH DIFFERENTIAL IRON FERRITIN 3. RLS (restless legs syndrome) Worse likely due Iron deficiency 333.94 G25.81 4. Aortic valve stenosis, etiology of cardiac valve disease unspecified Follow with cardiology 424.1 I35.0 Patient Instructions 1. Stop Requip 2. Take Gabapentin 100 mg at the bed time for several days. If still have leg cramps - increase to 200 mg ( 2 capsules of 100 mg) for several days and than - to 300 mg ( 3 capsules of 100 mg ) if needed 3. Follow up in 1 week and as needed Author: Polly Talavera MD documented in this encounter Plan of Treatment Date Type Specialty Care Team Description 06/17/2019 Ancillary Procedure Radiology 06/21/2019 Office Visit Orthopedics Peri Morgan, RPA-C [address] [place] [address] [phone] 06/27/2019 Office Visit Family Practice Ploly Talavera MD [address] [address] [phone] 07/03/2019 Lab Internal Medicine 07/10/2019 Office Visit [facility] Polly Talavera MD [address] [place] [address] [phone] 07/10/2019 Ancillary Procedure Radiology Name Type Priority Associated Diagnoses Date/Time CBC WITH DIFFERENTIAL Lab Routine Other iron deficiency 06/13/2019 4:34 PM EST anemia IRON Lab Routine Other iron deficiency 06/13/2019 4:34 PM EST anemia FERRITIN Lab Routine Other iron deficiency 06/13/2019 4:34 PM EST anemia Health Maintenance Due Date Last Done Comments [...] Type Problems Progress Blood Pressure Blood Essential 122/62 No [place], < 140/90 Pressure hypertension (06/13/2019 Mickey Monroe, 4:01 PM AMARA CHRISTIANSON Note: Hypertension Care Plan Based on the [...] Educational Resources: National Heart, Lung, & Blood Errol http://nhlbi.nih.gov/hbp/index.html The DASH Diet Eating Plan http://www.nhlbi.nih.gov/health/health-topics/ topics/dash/ Academy of Nutrition & DIetetics http://eatright.org National Smoking Cessation Site http://smokefree.gov Blood Pressure < 150/90 Blood Pressure 122/62 (06/13/2019 4:01 No Reinier Cárdenas MD PM EST) Note: [...] Visit Diagnoses Diagnosis Other iron deficiency anemia Other chest pain RLS (restless legs syndrome) Restless legs syndrome (RLS) Aortic valve stenosis, etiology of cardiac valve disease unspecified documented in this encounter Insurance Payer Benefit Plan / Subscriber ID Effective Dates Phone Address Type Group EXCELL[employer] MEDICARE EXCELLUS xxxxxxxxxxxx Effective for [facility] ADVANTAGE MEDICARE BLUE all dates PPO [phone]) Guarantor Name Account Type Relation to Date of Phone Billing Patient Address Estelle Wolff Personal/Family 1940 [phone] [address] [phone] [place], [place] (Work) [id number] documented as of this encounter
--- OUTSIDE RECORDS SUMMARY | 2019-07-11 21:38 | XMS REPORT | Summary of Care ---
:1940 Author Organization [facility] Address [address] [address] Care Team Providers Name Role Phone Mario Hernandez MD Unavailable Unavailable Polly Talavera Primary Care Provider Reason for Visit Reason Comments Follow Up MRI review Hip Pain no hip pain at time of rooming Encounter Details Date Type Department Care Team Description 06/20/2019 Office Visit [facility] - Peri Morgan, Piriformis syndrome [place] RPA-C of left side (Primary [address] D[address]) [address] [place], [place] [id number] [place] [address] [phone] Allergies Active Allergy Reactions Severity Noted Date Comments Ct Dye Dermatologic Reaction 11/16/2009 Penicillins Other 06/09/2010 documented as of this encounter (statuses as of 06/20/2019) Medications Medication Sig Dispensed Refills Start Date End Date Status Multiple Take 1 Tab by 0 Active Vitamins-Minerals (ONE mouth DAILY. DAILY WOMENS 50+) Oral Tab Nystatin 350496 UNIT/GM 0.0001 g by Apply 60 g [...] as of this encounter (statuses as of 06/20/2019) Active Problems Problem Noted Date Piriformis syndrome of left side 06/20/2019 Restless leg syndrome 06/28/2018 Hearing loss of right ear 02/10/2015 Chronic insomnia 02/10/2015 Osteoporosis 11/02/2012 Overview: FRAX 4.9/17% based on DEXA 07/02 H/O: hysterectomy 07/09/2010 Overview: Age 21 Essential hypertension SVT (supraventricular tachycardia) Overview: briefly on metoprol by prior provider for "angina" symptoms Mixed hyperlipidemia Overview: LDL 161, HDL 88 documented as of this encounter (statuses as of 06/20/2019) Resolved Problems Problem Noted Date Resolved Date Shoulder pain, right 04/02/2014 02/10/2015 Anxiety 02/10/2015 documented as of this encounter (statuses as of 06/20/2019) Immunizations Name Administration Dates Next Due Influenza [...] Sign Reading Time Taken Comments Blood Pressure 148/68 06/20/2019 9:17 AM EST feels ok, denies s/s of HTN or DC Pulse 57 06/20/2019 9:17 AM EST Temperature - - Respiratory Rate - - Oxygen Saturation - - Inhaled Oxygen Concentration - - Weight - - Height - - Body Mass Index - - documented in this encounter Progress Notes Peri Morgan RPA-C - 06/20/2019 9:45 AM EST Patient: Estelle Wolff : 1940 Date of Service: 06/20/2019 Chief Complaint Patient presents with Follow Up MRI review Hip Pain no hip pain at time of rooming HPI: Estelle Wolff is a 78-y.o. female who is here for follow up from a left Hip MRI. The patient reports that she is mobilizing without pain In the lateral hip Denies fever, chills, constitutional symptoms. Pain is Better since her last visit. She is taking a medicine at night for the restless leg and it is helping the hip. Denies groin pain. Physical Exam: Gait: Patient walks unassisted , normal gait. Hip: no tenderness to palpation over the greater trochanter. Some minimal tenderness over the piriformis. Neurological: Sensation is intact to the foot. Vascular: Pedal pulse is present. Pedal edema is absent. Skin condition to the foot is unremarkable and intact. Imaging: MRI: Mild hip DJD. No AVN or loose bodies Impression: ICD-9-CM ICD-10-CM 1. Piriformis syndrome of left side 355.0 G57.02 Plan: The diagnosis was discussed with the patient. Since medication is working will continue observation. Call if pain increases and will add physical therapy. Author: MADELEINE Hernandez 06/20/2019 09:32 documented in this encounter Plan of Treatment Date Type Specialty Care Team Description 07/03/2019 Lab Internal Medicine 07/05/2019 [facility] Visit [facility] Polly Talavera MD [address] [place] [address] [phone] 07/10/2019 [facility] Polly Talavera MD [address] [place] [address] [phone] 07/10/2019 Ancillary Procedure Radiology Health Maintenance Due Date Last Done Comments [...] Type Problems Progress Blood Pressure Blood Essential 148/68 No [place], < 140/90 Pressure hypertension (06/20/2019 Mickey Monroe, 9:17 AM EST) Note: Hypertension Care Plan Based [...] Educational Resources. record my blood pressure results. G[facility]ae is safe and secure way for you [...] Educational Resources: National Heart, Lung, & Blood [place] http://nhlbi.nih.gov/hbp/index.html The DASH Diet Eating Plan http://www.nhlbi.nih.gov/health/health-topics/ topics/dash/ Academy of Nutrition & DIetetics http://eatright.org National Smoking Cessation Site http://smokefree.gov Blood Pressure < 150/90 Blood Pressure 148/68 (06/20/2019 9:17 No Reinier Cárdenas MD AM EST) Note: [...] is an individualized lifestyle goal for Estelle Wloff: Please maintain a regular sleep schedule. This [...] filedocumented in this encounter Visit Diagnoses Diagnosis Piriformis syndrome of left side Lesion of sciatic nerve documented in this encounter Insurance Payer Benefit Plan / Subscriber ID Effective Dates Phone Address Type Group [employer] Plus[employer] MEDICARE [employer] Plus xxxxxxxxxxxx Effective for [employer] MEDICARE BLUE all dates PPO ([phone]) Guarantor Name Account Type Relation to Date of Phone Billing Patient Address Estelle Wolff Personal/Family 1940 [phone] (Home) [address] [phone] [place], [place] (Work) [id number] documented as of this encounter
--- OUTSIDE RECORDS SUMMARY | 2019-07-11 21:38 | XMS REPORT | Continuity of Care Document ---
:1940 External Reference #:[id number] Author Name Luke Gimenez M.D. Address [address] [place] [address] Care Team Providers Name Role Phone Rajesh Hernandez M.D. 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 - Family Care Team Information Expansion Joint Builder [phone] Tuan Ross D.O. - Cardiovascular Care Team Information Expansion Joint Builder Disease Problems Active Problems Provider Date Mastoidectomy Onset: Note: RIGHT AND LEFT Hearing loss Onset: Essential hypertension Onset: Arthritis Onset: Osteoporosis Onset: Insomnia Onset: Nuclear senile cataract Luke Gimenez M.D. Onset: 06/26/2015 Vitreous degeneration Luke Gimenez M.D. Onset: 06/26/2015 Combined form of senile cataract Luke Gimenez M.D. Onset: 10/13/2016 Headache Luke Gimenez M.D. Onset: 12/11/2018 Giant cell arteritis Luke Gimenez M.D. Onset: 12/11/2018 Social History Type Date Description Comments Sex Unknown ETOH Use Consumes 3-4 beers per week Tobacco Use Start: Unknown Patient has never smoked Recreational Drug Use Denies Drug Use Smoking Status Reviewed: 06/13/19 Patient has never smoked Allergies, Adverse Reactions, Alerts Active Allergies Reaction Severity Comments Date Iodinated Diagnostic Agents delirium 06/26/2015 Medications Active Medications SIG Qnty Indications Ordering Provider Date Toprol XL Unknown 25mg Tablets ER 24HR Centrum Silver Unknown Tablets Ropinirole HCL Take One Tablet Unknown 2mg Tablets By Mouth AT Bedtime Diphenhydramine HCL Unknown 25mg Capsules Cetirizine HCL Unknown 10mg Chewtabs Pantoprazole Sodium Take One Tablet Unknown 40mg By Mouth Every Tablets Day Iron Unknown 325(65Fe) mg Tablets Immunizations Description No Information Available Vital Signs Description No Information Available Results Description No Information Available Procedures Description No Information Available Medical Devices Description No Information Available Encounters Description No Information Available Assessments Date Code Description Provider 06/13/2019 H25.813 Combined forms of age-related cataract, Luke Gimenez M.D. bilateral 06/13/2019 H43.813 Vitreous degeneration, bilateral Luke Gimenez M.D. Plan of Treatment 06/13/2019 - Luke Gimenez M.D.H25.813 Combined forms of age-related cataract , bilateralComments:Smoking can increase the risk of developing or worsening any eye related disease, as well as affect your overall health. If you are a smoker, we strongly recommend that you quit.If you are not a smoker, we strongly recommend that you do not start. You have been diagnosed with cataracts. If you are happy with your vision as it is now, then we will see you at your next scheduled appointment. If you feel like your vision is getting worse before your scheduled appointment, please call Rani or Damari .Follow up:6 Month Follow Up Diagnostic Refraction You can expect to have your eyes dilated at your next visit. If Dr. Gimenez orders any additional testing , it may require extra time. We recommend that you bring sunglasses, as dilation drops often make you light sensitive until they wear off. We always recommendyou bring someone to drive you home if you are uncomfortable driving with your eyes dilated. If you have any questions before your next visit, feel free to call our office at .H43.813 Vitreous degeneration, bilateralComments:You have a Posterior Vitreous Detachment. If you have any changes in your floaters or flashing lights, please contact this office. Functional Status Description No Information Available Mental Status Description No Information Available Referrals Refer to Dr Reason for Referral Status Appt Date Luke Gimenez M.D. TEMPORAL ARTERY BIOPSY Created [facility] [address] [place] [phone]
--- OUTSIDE RECORDS SUMMARY | 2019-07-11 21:38 | XMS REPORT | Continuity of Care Document ---
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 Problems Description No Information Available Social History [...] Cells % 0.0 Comp Metabolic [place] [facility] [place] 137 mmol/L Normal 135-145 Potassium 3.4 [...] 75.2 >60 1 Laboratory test finding 06/20/2019 [facility] [place] LDH 172 U/L Normal 140-271 Ferritin 39.1 ng/mL Normal 11-307 Iron & Iron Binding Capacity 06/20/2019 [facility] [place] Iron 57 g/dL Normal 50-212 Unsaturated Iron Binding < 485 g/dL Total Iron Binding Capacity 500 g/dL High 250-450 Transferrin 357 mg/dL Normal 203-362 % Iron Saturation 11 % Low 15-55 Laboratory test finding 06/20/2019 [facility] Vitamin B12 224 pg/mL Normal 180- 914 2 1 Because ethnic data is not always [...] Range 145 to 180 Deficient Range <145 Procedures Date Code Description Status 05/10/2019 21380 Moderate Sedation Services; Same Phys Each Additional 15 Completed Mins 05/10/2019 14352 Moderate Sedation Services; Same Phys Each Additional 15 Completed Mins 05/10/2019 71428 Moderate Sedation Services; Same Phys Each Additional 15 Completed Mins 05/10/2019 62174 Moderate Sedation Services; Same Phys Each Additional 15 Completed Mins 05/10/2019 49347 Moderate Sedation Services; Same Phys Each Additional 15 Completed Mins 05/10/2019 74300 Colonoscopy Completed 05/10/2019 28251 EGD+Control Of Bleeding Any Method Completed 05/10/2019 70229 EGD+Biopsy Single Or Multiple Completed Medical Devices Description No Information Available Encounters Description No Information Available Assessments Date Code Description Provider 06/14/2019 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) 06/14/2019 I35.0 Nonrheumatic aortic (valve) stenosis Yousif Li DO 05/13/2019 D50.9 Iron deficiency anemia, unspecified Nicko Hobbs MD 05/10/2019 K29.71 Gastritis, unspecified, with bleeding Yousif Li DO 05/10/2019 K92.1 Melena Yousif Li DO Plan of Treatment Future Appointment(s):12/13/2019 1:30 pm - Yousif Li DO at [facility]06/14/2019 - AMOL Mendoza50.0 Iron deficiency anemia secondary to blood loss (chronic)I35.0 Nonrheumatic aortic ( valve) stenosis Functional Status Description No Information Available Mental Status Description No Information Available Referrals Description No Information Available
--- OUTSIDE RECORDS SUMMARY | 2019-07-11 21:38 | XMS REPORT | Continuity of Care Document ---
:1940 External Reference #:[id number] Author Name Yousif Li, Address [address] [place] [id number] Care Team Providers Name Role Phone Ramon Trent MD - Family Medicine Care Team Information Results Technician Problems Description No Information Available Social History Type Date Description Comments Sex Unknown Tobacco Use Start: Unknown End: Unknown Patient is a former smoker Smoking Status Reviewed: 06/14/19 Patient is a former smoker Allergies, Adverse Reactions, Alerts Active Allergies Reaction Severity Comments Date IV Contrast 06/14/2019 Medications Active Medications SIG Qnty Indications Ordering Provider Date Diphenhydramine HCL 1/2 Tablet prn Yousif LiDO 06/14/2019 (Sleep) 50mg Tablets Pantoprazole Sodium Take [...] BMI (Body Mass Index) 27.4 kg/m2 Results Description No Information Available Procedures Date Code Description Status 05/10/2019 48372 Moderate Sedation Services; Same Phys Each Additional 15 Completed Mins 05/10/2019 36855 Moderate Sedation Services; Same Phys Each Additional 15 Completed Mins 05/10/2019 03497 Moderate Sedation Services; Same Phys Each Additional 15 Completed Mins 05/10/2019 80385 Moderate Sedation Services; Same Phys Each Additional 15 Completed Mins 05/10/2019 90829 Moderate Sedation Services; Same Phys Each Additional 15 Completed Mins 05/10/2019 17219 Colonoscopy Completed 05/10/2019 21843 EGD+Control Of Bleeding Any Method Completed 05/10/2019 11712 EGD+Biopsy Single Or Multiple Completed Medical Devices [...] - Yousif Li DO at [facility] Counts include [facility] beds at the [facility]06/14/2019 - AMOL Mendoza50.0 Iron deficiency anemia secondary to blood loss (chronic)I35.0 Nonrheumatic aortic ( valve) stenosis Functional Status Description No Information Available Mental Status Description No Information Available Referrals Description No Information Available
[2019-07-11] MEDS ORDERED: Morphine 4 MG/ML VIAL (1 ml) 4 MG/ML VIAL IV ONE (21:54)
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
[2019-07-11] MEDS ORDERED: HYDROcodone/ACETAMIN 5-325 MG* 1 TAB PO ONE (22:29)
[2019-07-11] MEDS ORDERED: Ondansetron INJ* 2 MG/ML VIAL IV ONE (22:31)
[2019-07-11 23:01] VITALS: BP 106/68
== END 2019-07-11 23:00 | disposition home or self-care (01) ==
LOC: ED 21:27
DX: M25.511 Pain in right shoulder (principal); Z91.81 History of falling; E78.00 Pure hypercholesterolemia, unspecified; K92.2 Gastrointestinal hemorrhage, unspecified; Z79.899 Other long term (current) drug therapy
CPT/HCPCS: 99283; J2270; J2405